=== PATIENT | female | born 1965 | race African-American/Black ===

== ENCOUNTER 2016-10-05 14:42 | Inpatient (IN) | payer OTHER ==
[~2016-10-05] VITALS: Ht 162.6 cm; Wt 78.0 kg
[2016-10-05] MEDS ORDERED: ONDANSETRON 4 MG INJ IV STA (15:00)
[2016-10-05] MEDS ORDERED: HYDROmorphONE 1 MG/ML SYG IV STA (15:00)
[2016-10-05] MEDS ORDERED: SOD CHLORIDE 0.9% 1,000 ML IV STA (15:00)
[2016-10-05 15:19] LABS: ADD SCAN DIFF NO
[2016-10-05 15:21] LABS: BASOPHILS % 0.4 % (0.0-2.0); EOSINOPHILS # 0.1 10^3/ul (0.0-0.5); EOSINOPHILS % 1.3 % (0.0-7.0); HEMATOCRIT 37.7 % (37.0-47.0); LYMPHOCYTES # 1.5 10^3/ul (0.8-2.9); LYMPHOCYTES % 32.2 % (15.0-51.0); MEAN CORPUSCULAR HEMOGLOBIN 31.8 pg (29.0-33.0); MEAN CORPUSCULAR HGB CONC 34.5 g/dl (32.0-37.0); MEAN CORPUSCULAR VOLUME 92.2 fl (82.0-101.0); MEAN PLATELET VOLUME 10.5 fl (7.4-10.4); MONOCYTE # 0.4 10^3/ul (0.3-0.9); NEUTROPHIL # 2.6 10^3/ul (1.6-7.5); NEUTROPHILS % 57.9 % (39.0-77.0); PLATELET COUNT 190 10^3/UL (140-415); RED BLOOD COUNT 4.09 10^6/ul (4.20-5.40); RED CELL DISTRIBUTION WIDTH 11.9 % (11.5-14.5); WHITE BLOOD COUNT 4.5 10^3/ul (4.8-10.8)
[2016-10-05 15:31] LABS: ADD UMIC YES; UR ASCORBIC ACID NEGATIVE (NEGATIVE); UR BACTERIA FEW /HPF (NONE SEEN); UR BILIRUBIN (Dip) NEGATIVE (NEGATIVE); UR BLOOD (Dip) 2+ mg/dL (NEGATIVE); UR CLARITY CLOUDY (CLEAR); UR COLOR STRAW (YELLOW); UR GLUCOSE (Dip) NEGATIVE (NEGATIVE); UR KETONES (Dip) TRACE mg/dL (NEGATIVE); UR LEUKOCYTE ESTERASE (Dip) TRACE Leu/ul (NEGATIVE); UR NITRITE (Dip) NEGATIVE (NEGATIVE); UR RBC 81 /HPF (0-5); UR SQUAMOUS EPITHELIAL CELL FEW /HPF (FEW); UR TOTAL PROTEIN (Dip) NEGATIVE (NEGATIVE); UR UROBILINOGEN (Dip) NEGATIVE (NEGATIVE); UR WBC CLUMPS FEW /HPF (NONE SEEN)
[2016-10-05 15:38] LABS: INR 0.97; PROTIME 12.9 Sec (12.2-14.2)
[2016-10-05 15:43] LABS: ALBUMIN 5.2 g/dl (3.3-4.9); ALBUMIN/GLOBULIN RATIO 1.44; BILIRUBIN,INDIRECT 0.7 mg/dl (0-1.1); BILIRUBIN,TOTAL 0.7 mg/dl (0.2-1.3); CALCIUM 9.8 mg/dl (8.4-10.2); CREATININE 0.98 mg/dl (0.44-1.00); POTASSIUM 3.6 mmol/L (3.5-5.1); TOTAL PROTEIN 8.8 g/dl (6.1-8.1)
[2016-10-05] MEDS ORDERED: CEFTRIAXONE 1 GM/50 ML (PMX) 50 ML IVPB ONE (16:00)
[2016-10-05] MEDS ORDERED: LORAZEPAM 2 MG INJ IV ONE (16:00)
--- NOTE | 2016-10-05 16:15 | RADRPT ---
PROCEDURE: US Abdomen Limited . CLINICAL INDICATION: Abdominal pain, possible hepatic cysts. TECHNIQUE: Multiple real-time images were acquired of the patient's right upper quadrant abdomen u tilizing a high resolution transducer. COMPARISON: June 21, 2015 FINDINGS: The liver measures 22.8 cm in length. Innumerable simple appearing cysts are identified throughout the liver. The largest distinctly visualized cyst measures up to 5.8 cm in the left liver. The gall bladder and common bile duct are not well visualized. The pancreas is not well visualized. Antegrade flow is seen in the portal vein. Right kidney measures 12.1 cm. Increased cortical echogenicity is identified in the right kidney. Multiple simple-appearing cysts measuring up to 2.6 cm are seen in the right kidney. No hydronephro sis, masses or stones are noted. IMPRESSION: Enlarged liver. Innumerable simple appearing cysts third seen throughout the liver. The largest distinctly visualiz e cyst measures up to 5.8 cm. Echogenic right kidney suggesting medical renal disease. Multiple simple-appearing cysts in the right kidney. Gallbladder, common bile duct and pancreas not well visualized. If characterization of these structu res is needed repeat exam or CT/MRI is recommended. RPTAT: AA .Alcides Burger MD, Date Time Electronically viewed and signed by .Alcides Burger MD, MD on 10/05/2016 16:15 .P/
--- NOTE | 2016-10-05 17:01 | ERA ---
ER Documentation Chief Complaint Date/Time DATE: 10/05/16 TIME: 16:59 Chief Complaint AP WITH VOMITING HPI 51-year-old woman complains of diffuse abdominal pain mostly localized to the right upper quadrant similar to previous episodes of polycystic kidney disease. She is status post laparoscopic resection of some of the cysts in her liver about a year ago. She states last time she had similar severe pain was about 1 year ago. The pain began this morning, she has had multiple episodes of nausea and vomiting, clear nonbloody nonbilious. She denies precipitating or alleviating factors for her abdominal pain, denies dysuria, no chest pain or shortness of breath, no diarrhea, no headache or blurry vision. ROS All systems reviewed and are negative except as per history of present illness. Medications Home Meds No Active Prescriptions or Reported Meds Allergies Allergies: Coded Allergies: Penicillins (Unverified Allergy, Intermediate, 10/05/16) PMhx/Soc History of chronic recurrent abdominal pain, hepatic and renal cysts, post laparoscopic surgical resection of said cysts History of Surgery: Yes (partial hysterectomy) Anesthesia Reaction: No Hx Neurological Disorder: No Hx Respiratory Disorders: No Hx Cardiac Disorders: No Hx Psychiatric Problems: No Hx Miscellaneous Medical Probl: Yes (polycystic KIDNEY / liver DISEASE) Hx Alcohol Use: No Hx Substance Use: No Hx Tobacco Use: No Smoking Status: Never smoker FmHx Family History: No diabetes Physical Exam Vitals Vital Signs Date Time Temp Pulse Resp B/P Pulse Ox O2 Delivery O2 Flow Rate FiO2 10/05/16 18:43 64 21 134/86 98 Nasal Cannula 2.0 10/05/16 17:56 98.3 61 20 133/90 100 Nasal Cannula 2.0 10/05/16 17:30 98.3 58 20 135/78 99 Nasal Cannula 2.0 10/05/16 16:58 66 16 144/82 98 Nasal Cannula 2.0 10/05/16 15:21 65 20 144/92 100 Room Air 10/05/16 14:45 99.3 84 20 150/78 99 Physical Exam GENERAL: Well-developed, well-nourished, moderate discomfort, dehydrated HEENT: Moist mucous membranes, pink conjunctiva, no cervical spine tenderness or step-off deformities, no goiter, no jaundice or icterus, extraocular movements intact without pain. No submandibular induration, and no pharyngeal erythema NEURO: Alert and oriented 3, cranial nerves II through XII intact bilaterally, pupils equal round reactive to light, no focal deficits or facial asymmetry, sensation intact distally Strength 5/5 in upper and lower extremities bilaterally CARDIAC: Regular rate and rhythm, no murmurs rubs or gallops LUNGS: Clear bilaterally no wheezing crackles or stridor ABDOMEN: Diffusely tender with voluntary guarding, making thorough abdominal examination difficult SKIN: Warm and dry to touch, no abrasions, contusions, or hematomas, no lacerations, no ecchymosis, no target lesions, and without ulcers EXTREMITIES: No clubbing cyanosis or edema, calves are bilaterally symmetrical, no Homans sign, no popliteal cord sign. Distal pulses equal and bilateral PSYCH: Agitated and anxious Result Diagram: 10/05/16 1512 10/05/16 1512 Results 24 hrs Laboratory Tests Test 10/05/16 14:58 10/05/16 15:12 Urine Color STRAW Urine Clarity CLOUDY Urine pH 7.0 Urine Specific [place] 1.010 Urine Ketones TRACEmg/dL Urine Nitrite NEGATIVEmg/dL Urine Bilirubin NEGATIVEmg/dL Urine Urobilinogen NEGATIVEmg/dL Urine Leukocyte Esterase TRACELeu/ul Urine Microscopic RBC 81/HPF Urine Microscopic WBC 21/HPF Urine Squamous Epithelial Cells FEW/HPF Urine Bacteria FEW/HPF Urine Hemoglobin 2+mg/dL Urine Glucose NEGATIVEmg/dL Urine Total Protein NEGATIVEmg/dl White Blood Count 4.510^3/ul Red Blood Count 4.0910^6/ul Hemoglobin 13.0g/dl Hematocrit 37.7% Mean Corpuscular Volume 92.2fl Mean Corpuscular Hemoglobin 31.8pg Mean Corpuscular Hemoglobin Concent 34.5g/dl Red Cell Distribution Width 11.9% Platelet Count 89214^3/UL Mean Platelet Volume 10.5fl Neutrophils % 57.9% Lymphocytes % 32.2% Monocytes % 8.0% Eosinophils % 1.3% Basophils % 0.4% Nucleated Red Blood Cells % 0.0/100WBC Neutrophils # 2.610^3/ul Lymphocytes # 1.510^3/ul Monocytes # 0.410^3/ul Eosinophils # 0.110^3/ul Basophils # 0.010^3/ul Nucleated Red Blood Cells # 0.010^3/ul Prothrombin Time 12.9Sec Prothrombin Time Ratio 1.0 INR International Normalized Ratio 0.97 Sodium Level 140mmol/L Potassium Level 3.6mmol/L Chloride Level 102mmol/L Carbon Dioxide Level 27mmol/L Anion Gap 15 Blood Urea Nitrogen 12mg/dl Creatinine 0.98mg/dl Glucose Level 121mg/dl Calcium Level 9.8mg/dl Total Bilirubin 0.7mg/dl Direct Bilirubin 0.00mg/dl Indirect Bilirubin 0.7mg/dl Aspartate Amino Transf (AST/SGOT) 27IU/L Alanine Aminotransferase (ALT/SGPT) 26IU/L Alkaline Phosphatase 73IU/L Total Protein 8.8g/dl Albumin 5.2g/dl Globulin 3.60g/dl Albumin/Globulin Ratio 1.44 Lipase 135U/L Serum HCG, Qualitative NEGATIVE Current Medications Medications (Trade) Dose Ordered Sig/Olena Route PRN Reason Start Time Stop Time Status Last Admin Dose Admin Sodium Chloride (NS) 1,000 ml @ 1,000 mls/hr Q1H STAT IV 10/05/16 15:00 10/05/16 15:59 DC 10/05/16 15:11 Hydromorphone HCl (Dilaudid) 1 mg ONCE STAT IV 10/05/16 15:00 10/05/16 15:01 DC 10/05/16 15:11 Ondansetron HCl 4 mg 4 mg ONCE STAT IV 10/05/16 15:00 10/05/16 15:01 DC 10/05/16 15:10 Ceftriaxone Sodium (Rocephin) 50 ml @ 100 mls/hr ONCE ONCE IVPB 10/05/16 16:00 10/05/16 16:29 DC 10/05/16 15:52 Lorazepam (Ativan) 1 mg ONCE ONCE IV 10/05/16 16:00 10/05/16 16:01 DC 10/05/16 16:06 Hydromorphone HCl 2 mg 2 mg ONCE STAT IV 10/05/16 17:18 10/05/16 17:19 DC 10/05/16 17:31 Dextrose/Sodium Chloride (D5-1/2ns) 1,000 ml @ 50 mls/hr Q20H IV 10/05/16 19:38 UNV IV Flush (NS 3 ml) 3 ml PER PROTOCOL IV 10/05/16 20:00 UNV Ondansetron HCl (Zofran Inj) 4 mg Q6H PRN IV NAUSEA AND/OR VOMITING 10/05/16 20:00 UNV Acetaminophen (Tylenol Tab) 650 mg Q6H PRN PO PAIN LEVEL 1-3 OR FEVER 10/05/16 20:00 UNV Acetaminophen (Tylenol Supp) 650 mg Q6H PRN [place] PAIN LEVEL 1-3 OR FEVER 10/05/16 20:00 UNV Acetaminophen/ Hydrocodone Bitart ([place] (5/325)) 1 tab Q6H PRN PO MODERATE PAIN LEVEL 4-6 10/05/16 20:00 UNV Morphine Sulfate (morphine) 2 mg Q4H PRN IV SEVERE PAIN LEVEL 7-10 10/05/16 20:00 UNV Docusate Sodium (Colace) 100 mg Q12H PRN PO CONSTIPATION 10/05/16 20:00 UNV Magnesium Hydroxide (Milk Of Mag) 30 ml DAILY PRN PO CONSTIPATION 10/05/16 20:00 UNV Bisacodyl (Dulcolax) 5 mg DAILY PRN PO CONSTIPATION 10/05/16 20:00 UNV Zolpidem Tartrate (Ambien) 5 mg QHS PRN PO SLEEP 10/05/16 20:00 UNV Pantoprazole (Protonix Iv) 40 mg DAILY IV 10/06/16 09:00 UNV Procedures/MDM IV line was established patient was placed on environmental monitoring specialist rhythm strip revealed a sinus rhythm at about 70 bpm with upright P and T waves. Patient was afebrile. I administered 1 L normal saline intravenously, Zofran 4 mg IV, and hydromorphone 1 mg IV. For continued anxiety and pain I administered lorazepam 1 mg IV, and another dose of hydromorphone 1 mg IV. Symptoms improved with medications. CBC revealed leukopenia, electrolytes were unremarkable, liver function tests normal, troponin negative. test was negative, urine analysis was concerning for early urinary tract infection. I treated the patient here with ceftriaxone 1 g IV. Ultrasound of the right upper quadrant revealed multiple large hepatic cysts. Please refer to radiologist dictation for full report. CT scan of the abdomen and pelvis was performed revealing multiple hepatic and renal cysts bilaterally as well as bowel ileus. No other acute inflammatory infectious pathology noted. Please refer to radiologist dictation for full report. Emergent consultation with her surgeon Dr. Callahan was obtained, he recommended admission for pain control and surgical consultation. Patient to be kept n.p.o. after midnight. Patient will be admitted to [facility] under Dr. Bridges for continued medical management and surgical consultation. Departure Diagnosis: Primary Impression: Intractable abdominal pain Additional Impressions: Hepatic cyst Dehydration UTI (urinary tract infection) Qualified Code: N30.00 - Acute cystitis without hematuria Leukopenia Qualified Code: D72.819 - Leukopenia, unspecified type Condition: MIRIAM Donovan MD Oct 05, 2016 17:01
[2016-10-05] MEDS ORDERED: HYDROmorphONE 2 MG/ML SYG IV STA (17:18)
[2016-10-05 17:56] VITALS: TEMP 98.3
--- NOTE | 2016-10-05 19:30 | RADRPT ---
PROCEDURE: CT abdomen and pelvis without IV contrast. CLINICAL INDICATION: Abdominal pain TECHNIQUE: CT scan of the abdomen and pelvis without contrast was performed on the [employer] volumetric [address] scanner. The patient was scanned without intravenous contrast. Coronal and sagittal refo rmatted images were obtained from the axial source images. The CTDI vol is 8.76 mGy and the DLP is 5 47.78 mGy-cm. COMPARISON: 08/19/2015 FINDINGS: CT abdomen: Mild dependent bibasilar atelectasis is seen. The remaining lung bases are clear. The heart size i s not enlarged and is without pericardial thickening or effusion. The liver is without intrahepatic biliary dilatation. The liver is again noted to be enlarged with i nnumerable number of hepatic cysts which have not changed significantly in size and number. The sple en is normal in size and homogeneous in density. The stomach is grossly unremarkable. The pancreas as visualized is normal. The gallbladder and biliary tree are unremarkable and there is no evidenc e for common bile duct dilatation. The adrenal glands are symmetric and normal. The kidneys are sy mmetrically unremarkable as well. Innumerable number of bilateral renal cysts are seen which of both simple and complex in appearance with a hemorrhagic cysts suggested in the left kidney. The renal cysts have not changed significantly in size and number compared to the prior examination. A small nonobstructing left renal calculi seen in the lower pole measuring 2 mm. No right renal calculus or obstructive uropathy or mass lesion is seen. The aorta is of normal in caliber. There is no retroperitoneal lymphadenopathy. The gilberto hepatis region is clear. Mildly distended and fluid-filled segments of small bowel are seen distally. The r emainder of the small and large bowel and mesentery, as visualized, are otherwise unremarkable. No i nflammatory changes in the periappendiceal region is seen. A small amount of free fluid is seen. CT pelvis: The pelvic organs are normal. The pelvic sidewalls and inguinal regions are clear. No pelvic mass, lymphadenopathy, or focal fluid collection is seen. No acute inflammation is seen. The urinary bl adder is within normal limits. The surrounding osseous structures are unremarkable. No osteolytic or osteoblastic lesion is detect ed. IMPRESSION: 1. Findings consistent with polycystic kidney disease again seen which has not changed significantl y. 2. Small amount of free fluid. 3. Mildly distended and fluid-filled distal small bowel which may represent an ileus. 4. 2 mm non-obstructing left renal calculus. RPTAT: HPNM Chapito Camacho, Physician Date Time Electronically viewed and signed by Chapito Camacho, Physician on 10/05/2016 19:30 /
--- NOTE | 2016-10-05 19:46 | QN ---
Documentation Comment [id number] MARIANNE MONTELONGO MD Oct 05, 2016 19:46
[2016-10-05] MEDS ORDERED: ZOLPIDEM 5 MG TAB PO PRN (20:00)
[2016-10-05] MEDS ORDERED: BISACODYL (EC) 5 MG TAB PO PRN (20:00)
[2016-10-05] MEDS ORDERED: DOCUSATE SODIUM 100 MG CAP PO PRN (20:00)
[2016-10-05] MEDS ORDERED: MAGNESIUM HYDROXIDE 30ML CUP PO PRN (20:00)
[2016-10-05] MEDS ORDERED: ACETAMINOPHEN 650 MG SUPP PR PRN (20:00)
[2016-10-05] MEDS ORDERED: ACETAMINOPHEN 325 MG TAB PO PRN (20:00)
[2016-10-05] MEDS ORDERED: HYDROCODONE/APAP (5/325) TAB PO PRN (20:00)
[2016-10-05] MEDS ORDERED: NACL 0.9% 3 ML SYG IV SCH (20:00)
[2016-10-05] MEDS ORDERED: morphine 2 MG INJ IV PRN (20:00)
[2016-10-05] MEDS: DEXTROSE 5%-0.45% NACL 1,000 ML IV SCH (20:22)
[2016-10-05] MEDS: CIPROFLOXACIN 400MG/D5W 200 ML IVPB SCH (21:29)
[2016-10-05] MEDS: ONDANSETRON 4 MG INJ IV PRN (21:36)
[2016-10-05 21:41] VITALS: BP 157/87; RESP 18
[2016-10-05 22:30] VITALS: Ht 162.6 cm; Wt 78.0 kg
[2016-10-06] MEDS: morphine 4 MG/ML VIAL IV PRN ×4 (00:32→22:46)
[2016-10-06] MEDS: ONDANSETRON 4 MG INJ IV PRN ×2 (03:19→09:30)
[2016-10-06] MEDS ORDERED: traMADol 50 MG TAB PO PRN (06:30)
[2016-10-06 06:56] LABS: ADD SCAN DIFF NO
--- NOTE | 2016-10-06 06:56 | HP ---
DATE OF ADMISSION: 10/05/2016 HISTORY OF PRESENT ILLNESS: Leydi Rios is a 51-year-old female with history of hepatic cyst, presented with abdominal pain, has history of hepatic cyst deroofing in the past, presented with abdominal pain, nausea. Blood pressure 144/82, temperature 99.3 and patient is being admitted for further management. Laboratory data done shows total protein 8.8, albumin 5.2. The patient's WBC 4.5. Ultrasound of the abdomen shows findings consistent with polycystic kidney disease again seen which has not yet changed, small amount of free fluid, mildly distended and fluid-filled distal small bowel represents ileus, 2 mm nonobstructing left renal calculus. The patient's _ abdomen shows interval simple-appearing cyst the liver, echogenic right kidney consistent with medical renal disease. Gallbladder, common bile duct and pancreas not well visualized. PAST MEDICAL HISTORY: Polycystic kidney disease and liver disease. ALLERGIES: PENICILLIN. SOCIAL HISTORY: Negative. FAMILY HISTORY: Negative. MEDICATION HISTORY: At home, the patient does not know the name of the medicine. REVIEW OF SYSTEMS: HEENT: Unremarkable. RESPIRATORY: Unremarkable. CARDIOVASCULAR: No chest pain, palpitation. ABDOMEN: As mentioned above. EXTREMITIES: Unremarkable. CENTRAL NERVOUS SYSTEM: Unremarkable. GENITOURINARY: Unremarkable. MUSCULOSKELETAL: Unremarkable. PHYSICAL EXAMINATION: GENERAL: The patient is awake, alert, in pain. VITAL SIGNS: Stable. HEENT: Head is atraumatic, normocephalic. Pupils equal, reactive to light. NECK: Supple. There is no JVD. LUNGS: Clear. CARDIOVASCULAR: S1, S2 are normal. ABDOMEN: Distended. Bowel sounds positive. Tenderness in the right lower quadrant noted. EXTREMITIES: No cyanosis, clubbing or edema. CENTRAL NERVOUS SYSTEM: The patient is awake, alert with no focal deficit. LABORATORY DATA: As mentioned above. IMPRESSION: 1. The patient has urinary tract infection. 2. Polycystic kidney and liver disease. PLAN: Give this patient IV fluid. Dr. Callahan to see. Antibiotic, pain medication, PPI. Orders were done. Dictated By: MARIANNE MONTELONGO MD BS/NTS Conf#: [id number] DID#: [id number] [facility]
[2016-10-06 07:06] LABS: BASOPHILS % 0.1 % (0.0-2.0); HEMATOCRIT 39.7 % (37.0-47.0); HEMOGLOBIN 13.1 g/dl (12.0-16.0); LYMPHOCYTES # 0.6 10^3/ul (0.8-2.9); LYMPHOCYTES % 7.4 % (15.0-51.0); MEAN CORPUSCULAR HEMOGLOBIN 30.7 pg (29.0-33.0); MEAN PLATELET VOLUME 11.5 fl (7.4-10.4); MONOCYTE # 0.4 10^3/ul (0.3-0.9); MONOCYTES % 4.8 % (0.0-11.0); NEUTROPHIL # 7.4 10^3/ul (1.6-7.5); NEUTROPHILS % 87.2 % (39.0-77.0); PLATELET COUNT 214 10^3/UL (140-415); RED BLOOD COUNT 4.27 10^6/ul (4.20-5.40); RED CELL DISTRIBUTION WIDTH 11.9 % (11.5-14.5); WHITE BLOOD COUNT 8.4 10^3/ul (4.8-10.8)
[2016-10-06 07:50] LABS: ALBUMIN 4.7 g/dl (3.3-4.9); ALBUMIN/GLOBULIN RATIO 1.46; BILIRUBIN,INDIRECT 0.6 mg/dl (0-1.1); BILIRUBIN,TOTAL 0.6 mg/dl (0.2-1.3); CALCIUM 8.8 mg/dl (8.4-10.2); CREATININE 0.73 mg/dl (0.44-1.00); POTASSIUM 3.7 mmol/L (3.5-5.1); TOTAL PROTEIN 7.9 g/dl (6.1-8.1)
[2016-10-06 08:00] VITALS: BP 155/64; RESP 20
[2016-10-06] MEDS: PANTOPRAZOLE 40 MG INJ IV SCH (08:23)
[2016-10-06] MEDS: CIPROFLOXACIN 400MG/D5W 200 ML IVPB SCH ×2 (08:24→19:46)
[2016-10-06] MEDS ORDERED: PROMETHAZINE 25 MG SUPP PR PRN (10:00)
[2016-10-06] MEDS ORDERED: METOCLOPRAMIDE 10 MG INJ IV PRN (10:00)
--- NOTE | 2016-10-06 10:01 | PN ---
Date/Time of Note Date/Time of Note DATE: 10/06/16 TIME: 09:59 Assessment/Plan VTE Prophylaxis VTE Prophylaxis Intervention: ambulation Lines/Catheters IV Catheter Type (from Nrs): Peripheral IV Assessment/Plan Chief Complaint/Hosp Course 1. The patient has urinary tract infection. 2. Polycystic kidney and liver disease. Problems: Assessment/Plan 1. Continue IV fluids 2. More antiemetic meds Subjective 24 Hr Interval Summary Constitutional: poor po, requiring IVF Cardiovascular: no complaints Gastrointestinal: decreased appetite, pain Exam/Review of Systems Vital Signs Vitals Vital Signs Date Time Temp Pulse Resp B/P Pulse Ox O2 Delivery O2 Flow Rate FiO2 10/05/16 21:41 97.5 53 18 157/87 96 10/05/16 21:01 Nasal Cannula 2.0 Intake and Output 10/05/16 10/05/16 10/06/16 15:00 23:00 07:00 Intake Total 200 ml 445 ml Output Total 100 ml Balance 200 ml 345 ml Exam Constitutional: alert, oriented Neck: supple Respiratory: clear to auscultation Cardiovascular: regular rate and rhythm Gastrointestinal: tender Results Result Diagram: 10/06/16 0537 10/06/16 0537 Results 24 hrs Laboratory Tests Test 10/05/16 14:58 10/05/16 15:12 10/06/16 05:37 Urine Color STRAW Urine Clarity CLOUDY A Urine pH 7.0 Urine Specific [place] 1.010 Urine Ketones TRACE A Urine Nitrite NEGATIVE Urine Bilirubin NEGATIVE Urine Urobilinogen NEGATIVE Urine Leukocyte Esterase TRACE A Urine Microscopic RBC 81 H Urine Microscopic WBC 21 H Urine Squamous Epithelial Cells FEW Urine Bacteria FEW A Urine Hemoglobin 2+ H Urine Glucose NEGATIVE Urine Total Protein NEGATIVE White Blood Count 4.5 L 8.4 # Red Blood Count 4.09 L 4.27 Hemoglobin 13.0 13.1 Hematocrit 37.7 39.7 Mean Corpuscular Volume 92.2 93.0 Mean Corpuscular Hemoglobin 31.8 30.7 Mean Corpuscular Hemoglobin Concent 34.5 33.0 Red Cell Distribution Width 11.9 11.9 Platelet Count 190 214 Mean Platelet Volume 10.5 H 11.5 H Neutrophils % 57.9 87.2 H Lymphocytes % 32.2 7.4 L Monocytes % 8.0 4.8 Eosinophils % 1.3 0.0 Basophils % 0.4 0.1 Nucleated Red Blood Cells % 0.0 0.0 Neutrophils # 2.6 7.4 Lymphocytes # 1.5 0.6 L Monocytes # 0.4 0.4 Eosinophils # 0.1 0.0 Basophils # 0.0 0.0 Nucleated Red Blood Cells # 0.0 0.0 Prothrombin Time 12.9 Prothrombin Time Ratio 1.0 INR International Normalized Ratio 0.97 Sodium Level 140 135 Potassium Level 3.6 3.7 Chloride Level 102 101 Carbon Dioxide Level 27 23 Anion Gap 15 15 Blood Urea Nitrogen 12 12 Creatinine 0.98 0.73 Glucose Level 121 163 Calcium Level 9.8 8.8 Total Bilirubin 0.7 0.6 Direct Bilirubin 0.00 0.00 Indirect Bilirubin 0.7 0.6 Aspartate Amino Transf (AST/SGOT) 27 28 Alanine Aminotransferase (ALT/SGPT) 26 24 Alkaline Phosphatase 73 53 Total Protein 8.8 H 7.9 Albumin 5.2 H 4.7 Globulin 3.60 H 3.20 Albumin/Globulin Ratio 1.44 1.46 Lipase 135 Serum HCG, Qualitative NEGATIVE Medications Medications Current Medications Dextrose/Sodium Chloride (D5-1/2ns) 1,000 ml @ 50 mls/hr Q20H IV Last administered on 10/05/16 20:22; Admin Dose 50 MLS/HR; Start 10/05/16 at 19:38 Ondansetron HCl (Zofran Inj) 4 mg Q6H PRN IV NAUSEA AND/OR VOMITING Last administered on 10/06/16 09:30; Admin Dose 4 MG; Start 10/05/16 at 20:00 Acetaminophen (Tylenol Tab) 650 mg Q6H PRN PO PAIN LEVEL 1-3 OR FEVER; Start at 20:00 Acetaminophen (Tylenol Supp) 650 mg Q6H PRN [place] PAIN LEVEL 1-3 OR FEVER; Start 10/05/16 at 20:00 Acetaminophen/ Hydrocodone Bitart ([place] (5/325)) 1 tab Q6H PRN PO MODERATE PAIN LEVEL 4-6; Start 10/05/16 at 20:00 Docusate Sodium (Colace) 100 mg Q12H PRN PO CONSTIPATION; Start 10/05/16 at 20: 00 Magnesium Hydroxide (Milk Of Mag) 30 ml DAILY PRN PO CONSTIPATION; Start at 20:00 Bisacodyl (Dulcolax) 5 mg DAILY PRN PO CONSTIPATION; Start 10/05/16 at 20:00 Zolpidem Tartrate (Ambien) 5 mg QHS PRN PO SLEEP; Start 10/05/16 at 20:00 Pantoprazole 40 mg 40 mg DAILY IV Last administered on 10/06/16 08:23; Admin Dose 40 MG; Start 10/06/16 at 09:00 Ciprofloxacin/ Dextrose (Cipro Ivpb) 200 ml @ 200 mls/hr BID IVPB Last administered on 10/06/16 08:24; Admin Dose 200 MLS/HR; Start 10/05/16 at 21:00 Morphine Sulfate (morphine) 3 mg Q3 PRN IV SEVERE PAIN LEVEL 7-10 Last administered on 10/06/16 03:21; Admin Dose 3 MG; Start 10/06/16 at 00:00 Tramadol HCl (Ultram) 50 mg Q6H PRN PO PAIN Last administered on 10/06/16 06: 29; Admin Dose 50 MG; Start 10/06/16 at 06:30 MARCO DEL CID Oct 06, 2016 10:01
[2016-10-06 11:03] VITALS: BP 138/60; PULSE 70
[2016-10-06] MEDS: DEXTROSE 5%-0.45% NACL 1,000 ML IV SCH ×2 (15:38→18:41)
--- NOTE | 2016-10-06 17:48 | CONS ---
Date/Time of Note Date/Time of Note DATE: 10/06/16 TIME: 17:32 Assessment/Plan Assessment/Plan Additional Assessment/Plan [facility] INITIAL INPATIENT CONSULTATION NOTE DATE: 10/06/2016 PLACE OF SERVICE: [facility] 2nd Floor [facility] ASSESSMENT AND PLAN: A very pleasant 51-year-old lady well known to me since June 2014 for management of polycystic liver and kidney disease and s/p laparoscopic cyst unroofing 09/24/15, here with abdominal pain with nausea and vomiting and possible UTI vs. viral gastroenteritis vs. partial small bowel obstruction (has h/o pelvic surgery with partial hysterectomy). No indication for acute surgical intervention. Liver appears to be similar in size to pre-op size and I do not believe is the cause of the patient's symptoms. I explained this to patient (no family present during my discussions with the patient) and answered all her questions. I also discussed with Dr. Bridges. With above assessment, I recommended the followin. Keep inhouse 2. Agree with treatment for UTI 3. IV fluids 4. Symptom control 5. Strict I's and O's 6. Bowel regimen from below only 7. Labs in am Thank you again for allowing us to participate in the care of this very pleasant lady and her wonderful family. If there are any questions, please feel free to call me at [phone]. Updated Clinical Summary: The patient is a very pleasant 49-year-old young lady with symptomatic polycystic kidney and liver disease with abdominal pain and decreased oral intake. Status post laparoscopic cyst unroofing (multiple) 09/24/2015 as an outpatient. Comorbidities: 1. BMI 29.5 2. Polycystic kidney and liver disease discovered in the summer of 2013 3. S/p laparoscopic cyst unroofing (multiple) 09/24/[address] [facility] through [facility] 4. S/p partial hysterectomy in 2010 HISTORY OF PRESENT ILLNESS: The patient is a very pleasant 51-year-old lady well known to me since June 2014, admitted through ED at [facility] 10/05/16 with abdominal pain of a few days duration associated with non-bloody vomiting and nausea. Cannot keep liquids down. No fevers or chills. No blood in stool or urine. W/u showed normal labs and unremarkable CT other than polycystic liver and kidney disease which is unchanged since last year, and slight prominence of a few loops of bowel in the pelvis. No other major complaints. ALLERGIES: PCN HOME MEDICATIONS: See EHR SOCIAL HISTORY: The patient was born in [place], [place]. She is and has 2 children. 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 She does not report any smoking. Has social type drinking and no intravenous drug use. FAMILY HISTORY: There is no family history of polycystic liver or kidney disease that is known. There is also no major medical or malignant processes in the family that is noted by the patient or noted in the chart. REVIEW OF SYSTEMS: Other than the above-mentioned, there are no other pertinent positives or pertinent negatives in a complete 14-point review of systems. PHYSICAL EXAMINATION GENERAL: The patient appears to be a very pleasant -[place] lady of non - descent, appearing stated age, quite fit and not cachectic, laying in bed comfortably and in no acute distress. VITAL SIGNS: BMI 29.5. AVSS. HEENT: Her head is normocephalic and atraumatic. Her extraocular muscles and hearing are grossly intact bilaterally and symmetrically. Her sclerae are nonicteric. Her oral cavity is clear and her oral mucosa appeared to be pink and moist. She has good dentition. NECK: Supple. There is no lymphadenopathy or JVD. There is no submental, submandibular or supraclavicular lymphadenopathy. CHEST: Her chest rises symmetrically with each breath and she is breathing comfortably. There are no audible wheezes, rales or rhonchi on the gross exam. Her pulse is regular and palpable on the left wrist. Carotid pulses are palpable bilaterally and symmetrically in her neck. Capillary refill is normal. EXTREMITIES: Her lower extremities contain no pitting edema bilaterally and symmetrically. ABDOMEN: Soft, nondistended and nontender. Incisions c/d/i w/o any evidence for e/e/d/h. There are no peritoneal signs or guarding. SKIN: Appears to be pink and feels warm to touch. NEUROLOGIC: She is awake, alert, and follows commands appropriately. LABORATORY DATA: See EHR IMAGING: CT abd/pelvis done 10/05/16 with comparison to 08/19/15 IMPRESSION: 1. Findings consistent with polycystic kidney disease again seen which has not changed significantly. 2. Small amount of free fluid. 3. Mildly distended and fluid-filled distal small bowel which may represent an ileus. 4. 2 mm non-obstructing left renal calculus. Previously, the patient had an ultrasound of the right upper quadrant on 2013 that showed changes consistent with polycystic kidneys as well as enumerable cysts in the liver. Gallbladder was not visualized. A CT scan done on the same day showed extensive and numerous hepatic cysts throughout the liver resulting in moderate to severe hepatomegaly. There were no focal hepatic masses or intrahepatic biliary dilatation. The spleen was normal in size and homogeneous. The stomach was partially collapsed and is grossly unremarkable. Note that I reviewed both of all available pertinent images in person and I agree in general with their overall findings. As demonstrated previously, most of the disease is still spread fairly uniformly throughout the liver, although in the segments 7 and 8 of the liver there seems to be more collection of larger cysts than the rest of the liver. Consultation Date/Type/Reason Admit Date/Time Oct 05, 2016 at 17:18 Constitutional: poor po, requiring IVF Cardiovascular: no complaints Gastrointestinal: decreased appetite, pain Social History Smoking Status: Never smoker Exam/Review of Systems Vital Signs Vitals Vital Signs Date Time Temp Pulse Resp B/P Pulse Ox O2 Delivery O2 Flow Rate FiO2 10/06/16 11:03 70 138/60 10/06/16 08:00 98.6 20 94 10/05/16 21:01 Nasal Cannula 2.0 Intake and Output 10/05/16 10/05/16 10/06/16 15:00 23:00 07:00 Intake Total 200 ml 445 ml Output Total 100 ml Balance 200 ml 345 ml Results Result Diagram: 10/06/16 0537 10/06/16 0537 Results 24 hrs Laboratory Tests Test 10/06/16 05:37 White Blood Count 8.4 # Red Blood Count 4.27 Hemoglobin 13.1 Hematocrit 39.7 Mean Corpuscular Volume 93.0 Mean Corpuscular Hemoglobin 30.7 Mean Corpuscular Hemoglobin Concent 33.0 Red Cell Distribution Width 11.9 Platelet Count 214 Mean Platelet Volume 11.5 H Neutrophils % 87.2 H Lymphocytes % 7.4 L Monocytes % 4.8 Eosinophils % 0.0 Basophils % 0.1 Nucleated Red Blood Cells % 0.0 Neutrophils # 7.4 Lymphocytes # 0.6 L Monocytes # 0.4 Eosinophils # 0.0 Basophils # 0.0 Nucleated Red Blood Cells # 0.0 Sodium Level 135 Potassium Level 3.7 Chloride Level 101 Carbon Dioxide Level 23 Anion Gap 15 Blood Urea Nitrogen 12 Creatinine 0.73 Glucose Level 163 Calcium Level 8.8 Total Bilirubin 0.6 Direct Bilirubin 0.00 Indirect Bilirubin 0.6 Aspartate Amino Transf (AST/SGOT) 28 Alanine Aminotransferase (ALT/SGPT) 24 Alkaline Phosphatase 53 Total Protein 7.9 Albumin 4.7 Globulin 3.20 Albumin/Globulin Ratio 1.46 Medications Medications Current Medications Dextrose/Sodium Chloride (D5-1/2ns) 1,000 ml @ 50 mls/hr Q20H IV Last administered on 10/05/16 20:22; Admin Dose 50 MLS/HR; Start 10/05/16 at 19:38 Ondansetron HCl (Zofran Inj) 4 mg Q6H PRN IV NAUSEA AND/OR VOMITING Last administered on 10/06/16 09:30; Admin Dose 4 MG; Start 10/05/16 at 20:00 Acetaminophen (Tylenol Tab) 650 mg Q6H PRN PO PAIN LEVEL 1-3 OR FEVER; Start at 20:00 Acetaminophen (Tylenol Supp) 650 mg Q6H PRN [place] PAIN LEVEL 1-3 OR FEVER; Start 10/05/16 at 20:00 Acetaminophen/ Hydrocodone Bitart ([place] (5/325)) 1 tab Q6H PRN PO MODERATE PAIN LEVEL 4-6; Start 10/05/16 at 20:00 Docusate Sodium (Colace) 100 mg Q12H PRN PO CONSTIPATION; Start 10/05/16 at 20: 00 Magnesium Hydroxide (Milk Of Mag) 30 ml DAILY PRN PO CONSTIPATION; Start at 20:00 Bisacodyl (Dulcolax) 5 mg DAILY PRN PO CONSTIPATION; Start 10/05/16 at 20:00 Zolpidem Tartrate (Ambien) 5 mg QHS PRN PO SLEEP; Start 10/05/16 at 20:00 Pantoprazole 40 mg 40 mg DAILY IV Last administered on 10/06/16 08:23; Admin Dose 40 MG; Start 10/06/16 at 09:00 Ciprofloxacin/ Dextrose (Cipro Ivpb) 200 ml @ 200 mls/hr BID IVPB Last administered on 10/06/16 08:24; Admin Dose 200 MLS/HR; Start 10/05/16 at 21:00 Morphine Sulfate (morphine) 3 mg Q3 PRN IV SEVERE PAIN LEVEL 7-10 Last administered on 10/06/16 09:55; Admin Dose 3 MG; Start 10/06/16 at 00:00 Tramadol HCl (Ultram) 50 mg Q6H PRN PO PAIN Last administered on 10/06/16 06: 29; Admin Dose 50 MG; Start 10/06/16 at 06:30 Metoclopramide HCl (Reglan) 5 mg Q6H PRN IV NAUSEA; Start 10/06/16 at 10:00 Promethazine HCl (Phenadoz) 25 mg Q6H PRN [place] NAUSEA; Start 10/06/16 at 10:00 HEMAL EMERY M.D. Oct 06, 2016 17:46
[2016-10-06 20:00] VITALS: BP 140/84; RESP 18
[2016-10-07 06:07] LABS: ADD SCAN DIFF NO
[2016-10-07 06:10] LABS: BASOPHILS % 0.1 % (0.0-2.0); HEMATOCRIT 39.6 % (37.0-47.0); HEMOGLOBIN 13.5 g/dl (12.0-16.0); LYMPHOCYTES # 0.7 10^3/ul (0.8-2.9); LYMPHOCYTES % 4.3 % (15.0-51.0); MEAN CORPUSCULAR HEMOGLOBIN 31.3 pg (29.0-33.0); MEAN CORPUSCULAR HGB CONC 34.1 g/dl (32.0-37.0); MEAN CORPUSCULAR VOLUME 91.9 fl (82.0-101.0); MEAN PLATELET VOLUME 10.9 fl (7.4-10.4); MONOCYTE # 1.5 10^3/ul (0.3-0.9); MONOCYTES % 9.3 % (0.0-11.0); NEUTROPHIL # 13.4 10^3/ul (1.6-7.5); NEUTROPHILS % 85.9 % (39.0-77.0); PLATELET COUNT 214 10^3/UL (140-415); RED BLOOD COUNT 4.31 10^6/ul (4.20-5.40); RED CELL DISTRIBUTION WIDTH 11.9 % (11.5-14.5); WHITE BLOOD COUNT 15.6 10^3/ul (4.8-10.8)
[2016-10-07 06:55] LABS: CALCIUM 8.8 mg/dl (8.4-10.2); CREATININE 0.95 mg/dl (0.44-1.00); POTASSIUM 4.3 mmol/L (3.5-5.1)
[2016-10-07 08:00] VITALS: BP 131/86; PULSE 66; RESP 16
[2016-10-07] MEDS: PANTOPRAZOLE 40 MG INJ IV SCH (09:49)
[2016-10-07] MEDS: CIPROFLOXACIN 400MG/D5W 200 ML IVPB SCH (09:50)
[2016-10-07] MEDS: DEXTROSE 5%-0.45% NACL 1,000 ML IV SCH ×2 (11:38→18:25)
--- NOTE | 2016-10-07 12:55 | PN ---
Date/Time of Note Date/Time of Note DATE: 10/07/16 TIME: 12:53 Assessment/Plan VTE Prophylaxis VTE Prophylaxis Intervention: ambulation Lines/Catheters IV C[facility]ter Type (from [facility]): Peripheral IV Urinary Cath still in place: No Assessment/Plan Chief Complaint/Hosp Course 1 The patient has urinary tract infection wit SIRS 2. Polycystic kidney and liver disease. Problems: Assessment/Plan 1.Cont a/b 2. Dr Conteh for ID Subjective 24 Hr Interval Summary Eyes: no complaints Cardiovascular: no complaints Gastrointestinal: pain Genitourinary: flank pain Exam/Review of Systems Vital Signs Vitals Vital Signs Date Time Temp Pulse Resp B/P Pulse Ox O2 Delivery O2 Flow Rate FiO2 10/06/16 20:00 98.6 64 18 140/84 98 10/05/16 21:01 Nasal Cannula 2.0 Intake and Output 10/06/16 10/06/16 10/07/16 15:00 23:00 07:00 Intake Total 850 ml 525 ml 600 ml Output Total 100 ml Balance 750 ml 525 ml 600 ml Exam Constitutional: alert, oriented Head: normocephalic Neck: supple Respiratory: clear to auscultation Cardiovascular: regular rate and rhythm Gastrointestinal: soft Genitourinary - Female: CVA tenderness Results Result Diagram: 10/07/16 0539 10/07/16 0539 Results 24 hrs Laboratory Tests Test 10/07/16 05:39 White Blood Count 15.6 #H Red Blood Count 4.31 Hemoglobin 13.5 Hematocrit 39.6 Mean Corpuscular Volume 91.9 Mean Corpuscular Hemoglobin 31.3 Mean Corpuscular Hemoglobin Concent 34.1 Red Cell Distribution Width 11.9 Platelet Count 214 Mean Platelet Volume 10.9 H Neutrophils % 85.9 H Lymphocytes % 4.3 L Monocytes % 9.3 Eosinophils % 0.0 Basophils % 0.1 Nucleated Red Blood Cells % 0.0 Neutrophils # 13.4 H Lymphocytes # 0.7 L Monocytes # 1.5 H Eosinophils # 0.0 Basophils # 0.0 Nucleated Red Blood Cells # 0.0 Sodium Level 132 L Potassium Level 4.3 Chloride Level 97 Carbon Dioxide Level 27 Anion Gap 12 Blood Urea Nitrogen 19 Creatinine 0.95 Glucose Level 138 Calcium Level 8.8 Medications Medications Current Medications Dextrose/Sodium Chloride (D5-1/2ns) 1,000 ml @ 50 mls/hr Q20H IV Last administered on 10/06/16 18:41; Admin Dose 50 MLS/HR; Start 10/05/16 at 19:38 Ondansetron HCl (Zofran Inj) 4 mg Q6H PRN IV NAUSEA AND/OR VOMITING Last administered on 10/06/16 09:30; Admin Dose 4 MG; Start 10/05/16 at 20:00 Acetaminophen (Tylenol Tab) 650 mg Q6H PRN PO PAIN LEVEL 1-3 OR FEVER; Start at 20:00 Acetaminophen (Tylenol Supp) 650 mg Q6H PRN [place] PAIN LEVEL 1-3 OR FEVER; Start 10/05/16 at 20:00 Acetaminophen/ Hydrocodone Bitart ([place] (5/325)) 1 tab Q6H PRN PO MODERATE PAIN LEVEL 4-6; Start 10/05/16 at 20:00 Docusate Sodium (Colace) 100 mg Q12H PRN PO CONSTIPATION; Start 10/05/16 at 20: 00 Magnesium Hydroxide (Milk Of Mag) 30 ml DAILY PRN PO CONSTIPATION; Start at 20:00 Bisacodyl (Dulcolax) 5 mg DAILY PRN PO CONSTIPATION; Start 10/05/16 at 20:00 Zolpidem Tartrate (Ambien) 5 mg QHS PRN PO SLEEP; Start 10/05/16 at 20:00 Pantoprazole 40 mg 40 mg DAILY IV Last administered on 10/07/16 09:49; Admin Dose 40 MG; Start 10/06/16 at 09:00 Ciprofloxacin/ Dextrose (Cipro Ivpb) 200 ml @ 200 mls/hr BID IVPB Last administered on 10/07/16 09:50; Admin Dose 200 MLS/HR; Start 10/05/16 at 21:00 Morphine Sulfate (morphine) 3 mg Q3 PRN IV SEVERE PAIN LEVEL 7-10 Last administered on 10/06/16 22:46; Admin Dose 3 MG; Start 10/06/16 at 00:00 Tramadol HCl (Ultram) 50 mg Q6H PRN PO PAIN Last administered on 10/06/16 06: 29; Admin Dose 50 MG; Start 10/06/16 at 06:30 Metoclopramide HCl (Reglan) 5 mg Q6H PRN IV NAUSEA; Start 10/06/16 at 10:00 Promethazine HCl (Phenadoz) 25 mg Q6H PRN MD NAUSEA; Start 10/06/16 at 10:00 MARCO DEL CID Oct 07, 2016 12:55
--- NOTE | 2016-10-07 15:15 | PN ---
Date/Time of Note Date/Time of Note DATE: 10/07/16 TIME: 15:11 Assessment/Plan Lines/Catheters IV Catheter Type (from Nrs): Peripheral IV Scott in Place (from Nrs): No Assessment/Plan Assessment/Plan [facility] Progress Note Date of Service: 10/07/16 Today's Impression & Plan: Overall stable with ongoing abdominal pain associated with nausea and vomiting and now with increased WBC. Etiology unclear, but possibilities include UTI vs. viral gastroenteritis vs. partial small bowel obstruction (has h/o pelvic surgery with partial hysterectomy). No indication for acute surgical intervention. With above assessment, I recommended the followin. Keep inhouse 2. Cont treatment for UTI 3. IV fluids 4. Symptom control 5. Strict I's and O's 6. Bowel regimen from below only 7. NPO except sips of water and ice chips 8. KUB 9. Labs in am Thank you again for allowing us to participate in the care of this very pleasant lady and her wonderful family. If there are any questions, please feel free to call me at [phone]. Updated Clinical Summary: The patient is a very pleasant 49-year-old young lady with symptomatic polycystic kidney and liver disease with abdominal pain and decreased oral intake. Status post laparoscopic cyst unroofing (multiple) 09/24/2015 as an outpatient. Comorbidities: 1. BMI 29.5 2. Polycystic kidney and liver disease discovered in the summer of 2013 3. S/p laparoscopic cyst unroofing (multiple) 09/24/2015 as an outpatient at [facility] through [facility] 4. S/p partial hysterectomy in 2010 Subjective: No major events or complaints; still with abd pain and under semi-adequate control with medications; + n/v; - d; no sob or cp; - flatus; - BM; minimal activity Objective: Vitals: See below Exam: GENERAL: On exam, the patient was laying in bed and appeared to be comfortable and in no acute distress. ABDOMEN: Soft, mild to moderately tender and nondistended. There are no peritoneal signs or guarding. SKIN: Skin appears to be pink and feels warm to touch. NEUROLOGIC: Patient is awake, alert, and follows commands appropriately. Exam/Review of Systems Vital Signs Vitals Vital Signs Date Time Temp Pulse Resp B/P Pulse Ox O2 Delivery O2 Flow Rate FiO2 10/07/16 08:00 98.9 66 16 131/86 97 Room Air 10/05/16 21:01 2.0 Intake and Output 10/06/16 10/06/16 10/07/16 15:00 23:00 07:00 Intake Total 850 ml 525 ml 600 ml Output Total 100 ml Balance 750 ml 525 ml 600 ml Results Result Diagram: 10/07/16 0539 10/07/16 0539 HEMAL EMERY M.D. Oct 07, 2016 15:15
--- NOTE | 2016-10-07 17:00 | CONS ---
DATE OF ADMISSION: 10/05/2016 DATE OF CONSULTATION: 10/07/2016 TYPE OF CONSULTATION: Infectious disease. REASON FOR CONSULTATION: Antibiotic management. HISTORY OF PRESENT ILLNESS: Leydi Rios is a 51-year-old female with a history of polycystic k idney disease who comes in now with abdominal pain and is being seen for antibiotic management. Pas t problems include: 1. Polycystic kidney disease and liver disease. 2. History of hepatic cysts. The patient presented with abdominal pain and a history of hepatic cyst deroofing in the past. She had nausea and an ultrasound of the abdomen shows findings consistent with polycystic kidney disease which has not changed. She has a small amount of free fluid, mildly distended and fluid-filled dis maya small bowel representing an ileus, a 2 mm nonobstructing left renal calculus. Abdomen shows int erval simple-appearing cysts of the liver. On admission, her white count was 4.5, H and H of 13 and 37.7, platelet count 190,000. Today, her white count is 15.6. BUN and creatinine are 12/0.98 and 19/0.95. Urine is negative for nitrite, trace leukocyte esterase, white cells 21, which is elevated . Abdominal ultrasound, innumerable simple cysts seen throughout the liver and as previously noted. A CT scan of the abdomen and pelvis does not show any difference, mildly distended and fluid-fille d distal small bowel, which may represent an ileus. The patient was seen by Dr. Newton Callahan on , who noted that her BMI was 29, polycystic kidney disease and liver disease discovered in 05/2013, status post laparoscopic cyst unroofing, multiple, as an outpatient at [facility]. She also is status post partial hysterectomy in 2010. The patient was begun on Cipro on 10/05/2016 . There is no evidence of any urine cultures that were done. The patient received 1 dose of ceftri axone. She was seen again by Dr. Callahan today. She was stable. Abdominal pain associated with crys sea and vomiting now with increased WBC, possibilities include UTI versus viral gastroenteritis vers us partial small-bowel obstruction. No indications for acute surgical intervention. PAST MEDICAL HISTORY: Operations as outlined. FAMILY HISTORY: Noncontributory. SOCIAL HISTORY: She does not smoke, drink or abuse drugs. ALLERGIES: TO PENICILLIN, NOT TO SULFA OR FOODS. MEDICATIONS: Per chart. REVIEW OF SYSTEMS: As per HPI. PHYSICAL EXAMINATION: GENERAL: The patient is a well-developed, well-nourished female who is alert, responsive, in no acu te distress. VITAL SIGNS: Stable. She is afebrile. SKIN: Without generalized rash. HEENT: Within normal limits. NECK: Supple. LYMPH NODES: None palpable. CHEST: Decreased breath sounds at the bases. ABDOMEN: Soft with some mild tenderness, nondistended, without organosplenomegaly or masses. EXTREMITIES: Without cyanosis, clubbing, or edema. RECTAL AND GENITAL: Deferred. NEUROLOGIC: No focal neurological abnormalities. IMPRESSION AND PLAN: Leydi Rios is a pleasant 51-year-old female who comes in now with abdomi nal pain and has leukocytosis. We are going to get 2 sets of blood cultures, a urine culture. Disc ontinue the Cipro and start her on ertapenem. I will dictate my findings to Dr. Bridges and Dr. Robles cotter. Dictated By: EDEN ROACH MD, JD/VENKAT Conf#: [id number] DID#: [id number]
--- NOTE | 2016-10-07 17:28 | RADRPT ---
PROCEDURE: XR Abdomen. CLINICAL INDICATION: Abdominal pain TECHNIQUE: Supine and upright views of the abdomen were obtained. COMPARISON: None. FINDINGS: The bowel gas pattern is normal. There is no evidence of obstruction. No free intraperitoneal air i s seen. There are no abnormal calcifications overlying the urinary tracts. The osseous structures a re unremarkable. IMPRESSION: Nonobstructive bowel gas pattern. RPTAT: HPNM Physician Vineet Date Time Electronically viewed and signed by Chapito Camacho Physician on 10/07/2016 17:27 /
[2016-10-07] MEDS: ERTAPENEM SODIUM 1 GM in SOD CHLORIDE 0.9% 100 ML IVPB SCH (18:27)
[2016-10-07 20:57] VITALS: BP 118/56; RESP 19
[2016-10-08] MEDS: ONDANSETRON 4 MG INJ IV PRN (03:37)
[2016-10-08 05:42] LABS: ADD SCAN DIFF NO
[2016-10-08 05:52] LABS: ABNORMAL IP MESSAGE 1; BASOPHILS % 0.1 % (0.0-2.0); HEMATOCRIT 37.7 % (37.0-47.0); HEMOGLOBIN 12.9 g/dl (12.0-16.0); LYMPHOCYTES # 0.6 10^3/ul (0.8-2.9); LYMPHOCYTES % 3.1 % (15.0-51.0); MEAN CORPUSCULAR HEMOGLOBIN 31.2 pg (29.0-33.0); MEAN CORPUSCULAR HGB CONC 34.2 g/dl (32.0-37.0); MEAN CORPUSCULAR VOLUME 91.1 fl (82.0-101.0); MEAN PLATELET VOLUME 11.1 fl (7.4-10.4); MONOCYTE # 1.7 10^3/ul (0.3-0.9); NEUTROPHIL # 16.3 10^3/ul (1.6-7.5); NEUTROPHILS % 86.3 % (39.0-77.0); PLATELET COUNT 201 10^3/UL (140-415); RED BLOOD COUNT 4.14 10^6/ul (4.20-5.40); RED CELL DISTRIBUTION WIDTH 12.1 % (11.5-14.5); WHITE BLOOD COUNT 18.9 10^3/ul (4.8-10.8)
[2016-10-08 06:35] LABS: INR 1.09; PROTIME 14.1 Sec (12.2-14.2); PT RATIO 1.1
[2016-10-08 06:36] LABS: PARTIAL THROMBOPLASTIN TIME 35.3 Sec (25.0-35.0)
[2016-10-08 06:41] LABS: ALBUMIN 4.3 g/dl (3.3-4.9); ALBUMIN/GLOBULIN RATIO 1.48; BILIRUBIN,INDIRECT 0.6 mg/dl (0-1.1); BILIRUBIN,TOTAL 0.6 mg/dl (0.2-1.3); CALCIUM 8.8 mg/dl (8.4-10.2); CREATININE 0.95 mg/dl (0.44-1.00); MAGNESIUM 2.5 mg/dl (1.7-2.5); PHOSPHORUS 2.5 mg/dl (2.5-4.9); POTASSIUM 4.1 mmol/L (3.5-5.1); TOTAL PROTEIN 7.2 g/dl (6.1-8.1)
[2016-10-08 07:55] VITALS: BP 137/92; RESP 17
[2016-10-08] MEDS: PANTOPRAZOLE 40 MG INJ IV SCH (08:33)
--- NOTE | 2016-10-08 09:49 | PN ---
Date/Time of Note Date/Time of Note DATE: 10/08/16 TIME: 09:38 Assessment/Plan Lines/Catheters IV Catheter Type (from Nrs): Peripheral IV Scott in Place (from [facility]): No Assessment/Plan Assessment/Plan [facility] Progress Note Date of Service: 10/08/16 Today's Impression & Plan: Overall stable but with ongoing abdominal pain associated with nausea and vomiting and continuing to increase WBC with unclear etiology. So far being treated for possible UTI, although current clinical picture is not supportive of UTI being the main medical van driver of symptoms. Viral gastroenteritis is still a possibility. Partial small bowel obstruction from h/o pelvic surgery with partial hysterectomy and her laparoscopic hepatic cyst unroofing certainly a possibility, but her KUB's yesterday do not show obvious dilated loops of bowel. No indication for acute surgical intervention and no obvious surgical etiology for symptoms. No flatus or BM for a number of days and may benefit from bowel regimen from below. I discussed all of the above at length with the patient and answered all of her questions. With above assessment, I recommended the followin. Keep inhouse 2. Cont treatment for UTI and antimicrobial coverage (much appreciate Dr. Conteh 's excellent care) 3. Cont IV fluids 4. Symptom control 5. Strict I's and O's 6. Bowel regimen from below only 7. Liquid diet but with small intake (instructed patient); ok to have watermelon as requested 8. Consider GI consultation with possible need for endoscopic evaluation 9. Labs in am 10. Possible need for repeat CT scan with oral contrast (can likely skip the IV contrast if any renal issues; if not, may be helpful); will discuss with team tomorrow Thank you again for allowing us to participate in the care of this very pleasant lady and her wonderful family. If there are any questions, please feel free to call me at [phone]. Updated Clinical Summary: The patient is a very pleasant 49-year-old young lady with symptomatic polycystic kidney and liver disease with abdominal pain and decreased oral intake. Status post laparoscopic cyst unroofing (multiple) 09/24/2015 as an outpatient. Comorbidities: 1. BMI 29.5 2. Polycystic kidney and liver disease discovered in the summer of 2013 3. S/p laparoscopic cyst unroofing (multiple) 09/24/2015 as an outpatient at [facility] through [facility] 4. S/p partial hysterectomy in 2010 Subjective: Still with abd pain and under semi-adequate control with medications; + n/v; - d ; no sob or cp; - flatus; - BM; minimal activity Objective: Vitals: See below Exam: GENERAL: On exam, the patient was laying in bed and appeared to be uncomfortable but in no acute distress. Emesis bag at her side. ABDOMEN: Soft, mild to moderately tender and mildly distended. There are no peritoneal signs or guarding. SKIN: Skin appears to be pink and feels warm to touch. NEUROLOGIC: Patient is awake, alert, and follows commands appropriately. Exam/Review of Systems Vital Signs Vitals Vital Signs Date Time Temp Pulse Resp B/P Pulse Ox O2 Delivery O2 Flow Rate FiO2 10/08/16 07:55 98.5 86 17 137/92 97 10/07/16 08:00 Room Air 10/05/16 21:01 2.0 Intake and Output 10/07/16 10/07/16 10/08/16 15:00 23:00 07:00 Intake Total 550 ml 525 ml Balance 550 ml 525 ml Results Result Diagram: 10/08/16 0455 10/08/16 0455 HEMAL EMERY M.D. Oct 08, 2016 09:49
[2016-10-08] MEDS: ERTAPENEM SODIUM 1 GM in SOD CHLORIDE 0.9% 100 ML IVPB SCH (17:30)
[2016-10-08] MEDS: DEXTROSE 5%-0.45% NACL 1,000 ML IV SCH (17:41)
--- NOTE | 2016-10-08 18:34 | PN ---
Date/Time of Note Date/Time of Note DATE: 10/08/16 TIME: 18:33 Assessment/Plan VTE Prophylaxis VTE Prophylaxis Intervention: other Lines/Catheters IV Catheter Type (from Nrs): Peripheral IV Urinary Cath still in place: No Assessment/Plan Chief Complaint/Hosp Course A/P ABD PAIN ILEUS PKD LIVER CYSTS SEPSIS PLAN PER SURGERY AND ID Problems: Subjective 24 Hr Interval Summary Respiratory: no complaints Gastrointestinal: pain (+) Exam/Review of Systems Vital Signs Vitals Vital Signs Date Time Temp Pulse Resp B/P Pulse Ox O2 Delivery O2 Flow Rate FiO2 10/08/16 07:55 98.5 86 17 137/92 97 10/07/16 08:00 Room Air 10/05/16 21:01 2.0 Intake and Output 10/07/16 10/07/16 10/08/16 15:00 23:00 07:00 Intake Total 550 ml 525 ml Balance 550 ml 525 ml Exam Neck: supple Respiratory: clear to auscultation Cardiovascular: regular rate and rhythm Gastrointestinal: soft Genitourinary - Female: nl adnexae Results Result Diagram: 10/08/16 0455 10/08/16 0455 Results 24 hrs Laboratory Tests Test 10/08/16 04:55 White Blood Count 18.9 #H Red Blood Count 4.14 L Hemoglobin 12.9 Hematocrit 37.7 Mean Corpuscular Volume 91.1 Mean Corpuscular Hemoglobin 31.2 Mean Corpuscular Hemoglobin Concent 34.2 Red Cell Distribution Width 12.1 Platelet Count 201 Mean Platelet Volume 11.1 H Neutrophils % 86.3 H Lymphocytes % 3.1 L Monocytes % 9.0 Eosinophils % 0.0 Basophils % 0.1 Nucleated Red Blood Cells % 0.0 Neutrophils # 16.3 H Lymphocytes # 0.6 L Monocytes # 1.7 H Eosinophils # 0.0 Basophils # 0.0 Nucleated Red Blood Cells # 0.0 Prothrombin Time 14.1 Prothrombin Time Ratio 1.1 INR International Normalized Ratio 1.09 Activated Partial Thromboplast Time 35.3 H Sodium Level 132 L Potassium Level 4.1 Chloride Level 97 Carbon Dioxide Level 28 Anion Gap 11 Blood Urea Nitrogen 24 H Creatinine 0.95 Glucose Level 129 Lactic Acid Level 1.7 Calcium Level 8.8 Phosphorus Level 2.5 Magnesium Level 2.5 Total Bilirubin 0.6 Direct Bilirubin 0.00 Indirect Bilirubin 0.6 Aspartate Amino Transf (AST/SGOT) 17 Alanine Aminotransferase (ALT/SGPT) 23 Alkaline Phosphatase 53 Total Protein 7.2 Albumin 4.3 Globulin 2.90 Albumin/Globulin Ratio 1.48 Medications Medications Current Medications Dextrose/Sodium Chloride (D5-1/2ns) 1,000 ml @ 50 mls/hr Q20H IV Last administered on 10/08/16 17:41; Admin Dose 50 MLS/HR; Start 10/05/16 at 19:38 Ondansetron HCl (Zofran Inj) 4 mg Q6H PRN IV NAUSEA AND/OR VOMITING Last administered on 10/08/16 03:37; Admin Dose 4 MG; Start 10/05/16 at 20:00 Acetaminophen (Tylenol Tab) 650 mg Q6H PRN PO PAIN LEVEL 1-3 OR FEVER; Start at 20:00 Acetaminophen (Tylenol Supp) 650 mg Q6H PRN [place] PAIN LEVEL 1-3 OR FEVER; Start 10/05/16 at 20:00 Acetaminophen/ Hydrocodone Bitart ([place] (5/325)) 1 tab Q6H PRN PO MODERATE PAIN LEVEL 4-6; Start 10/05/16 at 20:00 Docusate Sodium (Colace) 100 mg Q12H PRN PO CONSTIPATION; Start 10/05/16 at 20: 00 Magnesium Hydroxide (Milk Of Mag) 30 ml DAILY PRN PO CONSTIPATION; Start at 20:00 Bisacodyl (Dulcolax) 5 mg DAILY PRN PO CONSTIPATION; Start 10/05/16 at 20:00 Zolpidem Tartrate (Ambien) 5 mg QHS PRN PO SLEEP; Start 10/05/16 at 20:00 Pantoprazole (Protonix Iv) 40 mg DAILY IV Last administered on 10/08/16 08:33 ; Admin Dose 40 MG; Start 10/06/16 at 09:00 Morphine Sulfate (morphine) 3 mg Q3 PRN IV SEVERE PAIN LEVEL 7-10 Last administered on 10/06/16 22:46; Admin Dose 3 MG; Start 10/06/16 at 00:00 Tramadol HCl (Ultram) 50 mg Q6H PRN PO PAIN Last administered on 10/06/16 06: 29; Admin Dose 50 MG; Start 10/06/16 at 06:30 Metoclopramide HCl (Reglan) 5 mg Q6H PRN IV NAUSEA; Start 10/06/16 at 10:00 Promethazine HCl 25 mg 25 mg Q6H PRN ID NAUSEA; Start 10/06/16 at 10:00 Ertapenem 1 gm/ Sodium Chloride 100 ml @ 200 mls/hr Q24H IVPB Last administered on 10/07/16t 18:27; Admin Dose 200 MLS/HR; Start 10/07/16 at 17:30 Metronidazole (Flagyl 500 Mg (Pmx)) 100 ml @ 100 mls/hr Q8 IVPB ; Start at 22:00 MARIANNE MONTELONGO MD Oct 08, 2016 18:34
--- NOTE | 2016-10-08 18:53 | PN ---
DATE: 10/08/2016 INFECTIOUS DISEASE PROGRESS NOTE SUBJECTIVE: Patient is lying comfortably in bed. She still has nausea, vomiting, no diarrhea. Abdomen is slightly distended MICROBIOLOGY: Urine culture came back negative. ANTIMICROBIALS: She is on Invanz. DIAGNOSTICS: CT of the abdomen and pelvis without contrast showed polycystic kidney disease. Small amount of free fluid and mildly distended and fluid- filled distal small bowel, which may represent ileus. X-ray of the abdomen revealed nonobstructive bowel gas pattern. PHYSICAL EXAMINATION: GENERAL: Well-nourished, well-developed, middle-aged -[place] woman who is lying comfortably in bed. HEENT: Head atraumatic, normocephalic. Sclerae anicteric. Buccal mucosa dry. NECK: Supple. Trachea midline. CHEST: Rise symmetrical. Breath sounds diminished. HEART: S1, S2. ABDOMEN: Distended, soft. Bowel tones present. EXTREMITIES: Without cyanosis. ASSESSMENT: 1. Systemic inflammatory response syndrome with nausea, vomiting and leukocytosis, etiology unclear, no evidence of urinary tract infection. Possible gastroenteritis. 2. Partial small-bowel obstruction, surgery on case, no indication for acute surgical intervention at this point. 3. Polycystic kidney disease and liver disease. PLAN: We will add empiric Flagyl. We will order blood cultures given persistent leukocytosis that is increasing. Order chest x-ray in the morning, procalcitonin level and lactic acid level. Follow surgical recommendations. Dictated By: NAFISA MOLINA GREEN BUILDING MATERIALS DESIGNER for [facility] MURILLO/VENKAT Conf#: [id number] DID#: [id number] ENOCH
[2016-10-08 21:28] VITALS: BP 127/90; RESP 17
[2016-10-08] MEDS: metroNIDAZOLE 500 MG/NS (PMX) 100 ML IVPB SCH (22:09)
[2016-10-09 05:18] LABS: ADD SCAN DIFF NO
[2016-10-09 05:34] LABS: BASOPHILS % 0.1 % (0.0-2.0); HEMATOCRIT 38.7 % (37.0-47.0); HEMOGLOBIN 12.9 g/dl (12.0-16.0); LYMPHOCYTES # 0.8 10^3/ul (0.8-2.9); LYMPHOCYTES % 4.2 % (15.0-51.0); MEAN CORPUSCULAR HEMOGLOBIN 30.6 pg (29.0-33.0); MEAN CORPUSCULAR HGB CONC 33.3 g/dl (32.0-37.0); MEAN CORPUSCULAR VOLUME 91.9 fl (82.0-101.0); MEAN PLATELET VOLUME 10.9 fl (7.4-10.4); MONOCYTE # 1.5 10^3/ul (0.3-0.9); MONOCYTES % 7.9 % (0.0-11.0); NEUTROPHIL # 16.4 10^3/ul (1.6-7.5); NEUTROPHILS % 86.8 % (39.0-77.0); PLATELET COUNT 211 10^3/UL (140-415); RED BLOOD COUNT 4.21 10^6/ul (4.20-5.40); RED CELL DISTRIBUTION WIDTH 12.1 % (11.5-14.5); WHITE BLOOD COUNT 18.8 10^3/ul (4.8-10.8)
[2016-10-09] MEDS: metroNIDAZOLE 500 MG/NS (PMX) 100 ML IVPB SCH ×3 (05:45→22:13)
[2016-10-09] MEDS: DEXTROSE 5%-0.45% NACL 1,000 ML IV SCH ×3 (07:00→22:13)
[2016-10-09 08:15] VITALS: BP 130/88; RESP 18
[2016-10-09] MEDS: PANTOPRAZOLE 40 MG INJ IV SCH (08:38)
--- NOTE | 2016-10-09 12:17 | PN ---
Date/Time of Note Date/Time of Note DATE: 10/09/16 TIME: 12:11 Assessment/Plan Lines/Catheters IV Catheter Type (from [facility] [place]): Peripheral IV Scott in Place (from [facility] [place]): No Assessment/Plan Assessment/Plan [facility] Progress Note Date of Service: 10/09/16 Today's Impression & Plan: Overall stable and slightly improved. WBC still elevated but slightly decreased from yesterday. Possible infection with possible partial small bowel obstruction ; less likely viral gastroenteritis. No indication for acute surgical intervention and no obvious surgical etiology for symptoms. No flatus or BM for a number of days and may benefit from bowel regimen from below. I discussed all of the above at length with the patient and answered all of her questions. With above assessment, I recommended the followin. Keep inhouse 2. Cont treatment for UTI and antimicrobial coverage (much appreciate Dr. Conteh 's excellent care) 3. Cont IV fluids 4. Symptom control 5. Strict I's and O's 6. Bowel regimen from below only 7. Ice chips and sips of water ok, but do not advance 8. Please involve GI for consultation with possible need for endoscopic evaluation 9. Labs in am 10. Possible need for repeat CT scan with oral contrast (can likely skip the IV contrast if any renal issues; if not, may be helpful); will discuss with team Thank you again for allowing us to participate in the care of this very pleasant lady and her wonderful family. If there are any questions, please feel free to call me at [phone]. Updated Clinical Summary: The patient is a very pleasant 49-year-old young lady with symptomatic polycystic kidney and liver disease with abdominal pain and decreased oral intake. Status post laparoscopic cyst unroofing (multiple) 09/24/2015 as an outpatient. Comorbidities: 1. BMI 29.5 2. Polycystic kidney and liver disease discovered in the summer of 2013 3. S/p laparoscopic cyst unroofing (multiple) 09/24/2015 as an outpatient at [facility] through [facility] 4. S/p partial hysterectomy in 2010 Subjective: Still with abd pain and under semi-adequate control with medications; + n/v; - d ; no sob or cp; - flatus; - BM; more activity (took a shower today and reports feeling better than yesterday). Objective: Vitals: See below Exam: GENERAL: On exam, the patient was laying in bed and appeared to be comfortable and in no acute distress. Emesis bag at her side. ABDOMEN: Soft, mildly tender and less distended than yesterday. There are no peritoneal signs or guarding. SKIN: Skin appears to be pink and feels warm to touch. NEUROLOGIC: Patient is awake, alert, and follows commands appropriately. Exam/Review of Systems Vital Signs Vitals Vital Signs Date Time Temp Pulse Resp B/P Pulse Ox O2 Delivery O2 Flow Rate FiO2 10/09/16 08:15 98.0 85 18 130/88 98 10/07/16 08:00 Room Air 10/05/16 21:01 2.0 Intake and Output 10/08/16 10/08/16 10/09/16 15:00 23:00 07:00 Intake Total 600 ml 750 ml Output Total 1000 ml Balance -400 ml 750 ml Results Result Diagram: 10/09/16 0440 10/08/16 0455 HEMAL EMERY M.D. Oct 09, 2016 12:17
[2016-10-09] MEDS ORDERED: SOD CHLORIDE 0.9% 500 ML IV ONE (12:30)
--- NOTE | 2016-10-09 13:47 | RADRPT ---
PROCEDURE: XR Chest. CLINICAL INDICATION: Pneumonia. TECHNIQUE: Single AP portable chest COMPARISON: None. FINDINGS: The cardiomediastinal silhouette is within normal limits of size. Mild tortuosity and ectasia of the thoracic aorta. Atherosclerotic calcification of the aorta. The lungs are clear without pleural effusion or focal consolidation. No pneumothorax. The osseous structures and soft tissues are unrema rkable. IMPRESSION: 1. No evidence for active cardiopulmonary disease. RPTAT:AAJJ Peace Davis Physician Date Time Electronically viewed and signed by Physician Monika on 10/09/2016 13:46 MANOJ/
[2016-10-09] MEDS: ERTAPENEM SODIUM 1 GM in SOD CHLORIDE 0.9% 100 ML IVPB SCH (18:24)
--- NOTE | 2016-10-09 20:16 | PN ---
DATE: 10/09/2016 SUBJECTIVE: The patient remains unchanged, still with nausea, vomiting and abdominal pain. LABORATORIES: WBC today 18.8, neutrophils 86.8, no bands. BUN 24, creatinine 0.95. DIAGNOSTICS: Chest x-ray this morning revealed no evidence for active cardiopulmonary disease. ANTIMICROBIALS: The patient is on: 1. Invanz 2. Flagyl. PHYSICAL EXAMINATION: GENERAL: This is a well-developed middle-aged -[place] woman who is alert, in no distress. HEENT: Head atraumatic, normocephalic. Sclerae anicteric. Buccal mucosa pink. NECK: Supple. CHEST: Rise symmetrical. Breath sounds clear. HEART: S1, S2. ABDOMEN: Distended with diffuse pain on palpation. EXTREMITIES: Without cyanosis. ASSESSMENT: 1. Systemic inflammatory response syndrome with persistent leukocytosis with nausea, vomiting and a bdominal pain, a partial small bowel obstruction, possible gastroenteritis, on Invanz and Flagyl. 2. Polycystic kidney disease. PLAN: The patient remains clinically unchanged, still significantly symptomatic. She is being seen by Dr. Callahan in surgical consultation. She did have a CT of the abdomen and pelvis on admission w ithout contrast. Given persistence of her symptoms, I recommend to repeat CT abdomen and pelvis wit h IV contrast. The patient, however, states that she does not want to do it because it affects her kidney function. We will continue her on current regimen in regards to antibiotics. Dictated By: NAFISA MOLINA MARKETING AGENT for EDEN MURILLO/NTS Conf#: [id number] DID#: [id number]
[2016-10-09] MEDS ORDERED: NA PHOSPHATE/BIPHOS 133 ML ENEMA PR PRN (20:30)
[2016-10-09] MEDS ORDERED: DOCUSATE SODIUM 100 MG CAP PO PRN (20:30)
[2016-10-09] MEDS ORDERED: BISACODYL 10 MG SUPP PR PRN (20:30)
[2016-10-09 20:53] VITALS: BP 134/92; RESP 18
[2016-10-10] MEDS: metroNIDAZOLE 500 MG/NS (PMX) 100 ML IVPB SCH ×2 (05:05→14:20)
[2016-10-10] MEDS: PANTOPRAZOLE 40 MG INJ IV SCH (09:00)
[2016-10-10 09:33] LABS: ADD SCAN DIFF NO
[2016-10-10 09:36] LABS: BASOPHILS % 0.2 % (0.0-2.0); EOSINOPHILS # 0.1 10^3/ul (0.0-0.5); EOSINOPHILS % 0.4 % (0.0-7.0); HEMATOCRIT 38.5 % (37.0-47.0); LYMPHOCYTES # 1.2 10^3/ul (0.8-2.9); LYMPHOCYTES % 9.3 % (15.0-51.0); MEAN CORPUSCULAR HEMOGLOBIN 31.1 pg (29.0-33.0); MEAN CORPUSCULAR HGB CONC 33.8 g/dl (32.0-37.0); MEAN CORPUSCULAR VOLUME 92.1 fl (82.0-101.0); MEAN PLATELET VOLUME 10.1 fl (7.4-10.4); MONOCYTE # 1.1 10^3/ul (0.3-0.9); MONOCYTES % 8.1 % (0.0-11.0); NEUTROPHIL # 10.7 10^3/ul (1.6-7.5); PLATELET COUNT 271 10^3/UL (140-415); RED BLOOD COUNT 4.18 10^6/ul (4.20-5.40); RED CELL DISTRIBUTION WIDTH 12.1 % (11.5-14.5); WHITE BLOOD COUNT 13.2 10^3/ul (4.8-10.8)
[2016-10-10 09:54] LABS: INR 1.12; PROTIME 14.4 Sec (12.2-14.2); PT RATIO 1.1
[2016-10-10 10:02] LABS: ALBUMIN 4.4 g/dl (3.3-4.9); ALBUMIN/GLOBULIN RATIO 1.18; BILIRUBIN,INDIRECT 0.7 mg/dl (0-1.1); BILIRUBIN,TOTAL 0.7 mg/dl (0.2-1.3); CALCIUM 9.3 mg/dl (8.4-10.2); CREATININE 0.88 mg/dl (0.44-1.00); POTASSIUM 3.8 mmol/L (3.5-5.1); TOTAL PROTEIN 8.1 g/dl (6.1-8.1)
[2016-10-10 10:03] LABS: MAGNESIUM 2.7 mg/dl (1.7-2.5); PHOSPHORUS 3.1 mg/dl (2.5-4.9)
--- NOTE | 2016-10-10 12:32 | RADRPT ---
PROCEDURE: XR Abdomen 1 View. CLINICAL INDICATION: Abdominal pain, bowel obstruction. TECHNIQUE: AP abdomen x-ray. COMPARISON: October 07, 2016 FINDINGS: Scattered gas is noted in the transverse colon. The remainder of the bowel appears mostly decompres sed. No dilated loops of small bowel are observed. No organomegaly is identified. A few phleboliths are seen in the pelvis. The osseous structures are intact. IMPRESSION: Nonspecific bowel gas pattern. If further characterization of the abdomen is needed CT should be considered. RPTAT: AA .Alcides Burger MD, Date Time Electronically viewed and signed by .Alcides Burger MD, on 10/10/2016 12:32 .P/
[2016-10-10] MEDS: DEXTROSE 5%-0.45% NACL 1,000 ML IV SCH ×2 (14:19→23:59)
--- NOTE | 2016-10-10 17:31 | PN ---
Date/Time of Note Date/Time of Note DATE: 10/10/16 TIME: 17:28 Assessment/Plan Lines/Catheters IV Catheter Type (from [facility]): Peripheral IV Scott in Place (from [facility]): No Assessment/Plan Assessment/Plan [facility] Progress Note Date of Service: 10/10/16 Today's Impression & Plan: Overall stable and continuing to improve. WBC lower today around 13. Patient also had a spontaneous bowel movement that was unassisted. Certainly could be consistent with partial small bowel obstruction that is resolving. No indication for acute surgical intervention and no obvious surgical etiology for symptoms. I discussed all of the above at length with the patient and her sister and answered all of their questions. With above assessment, I recommended the followin. Keep inhouse 2. Cont treatment for UTI and antimicrobial coverage (much appreciate Dr. Conteh 's excellent care) 3. Cont IV fluids 4. Symptom control 5. Strict I's and O's 6. Bowel regimen from below only 7. Clear liquid diet and advance slowly 8. Follow up with GIs recommendations (much appreciated Dr. Harrison's excellent input) 9. Labs in am Thank you again for allowing us to participate in the care of this very pleasant lady and her wonderful family. If there are any questions, please feel free to call me at [phone]. Updated Clinical Summary: The patient is a very pleasant 49-year-old young lady with symptomatic polycystic kidney and liver disease with abdominal pain and decreased oral intake. Status post laparoscopic cyst unroofing (multiple) 09/24/2015 as an outpatient. Comorbidities: 1. BMI 29.5 2. Polycystic kidney and liver disease discovered in the summer of 2013 3. S/p laparoscopic cyst unroofing (multiple) 09/24/2015 as an outpatient at [facility] 4. S/p partial hysterectomy in 2010 Subjective: No major events or complaints and feels overall improved with one bowel movement. Much less abd pain and under adequate control with medications; + n/v ; + d; no sob or cp; +flatus; + BM; + activity. Objective: Vitals: See below Exam: GENERAL: On exam, the patient was laying in bed and appeared to be comfortable and in no acute distress. ABDOMEN: Soft, non-tender and non-distended. There are no peritoneal signs or guarding. SKIN: Skin appears to be pink and feels warm to touch. NEUROLOGIC: Patient is awake, alert, and follows commands appropriately. Exam/Review of Systems Vital Signs Vitals Vital Signs Date Time Temp Pulse Resp B/P Pulse Ox O2 Delivery O2 Flow Rate FiO2 10/09/16 20:53 98.2 101 18 134/92 98 10/07/16 08:00 Room Air Intake and Output 10/09/16 10/09/16 10/10/16 14:59 22:59 06:59 Intake Total 500 ml 200 ml 620 ml Output Total 950 ml 650 ml Balance 500 ml -750 ml -30 ml Results Result Diagram: 10/10/16 0925 10/10/16 0925 HEMAL EMERY M.D. Oct 10, 2016 17:31
[2016-10-10] MEDS: ERTAPENEM SODIUM 1 GM in SOD CHLORIDE 0.9% 100 ML IVPB SCH (18:23)
--- NOTE | 2016-10-10 19:13 | CONS ---
Date/Time of Note Date/Time of Note DATE: 10/10/16 TIME: 19:10 Assessment/Plan Assessment/Plan Additional Assessment/Plan 1. Abdominal pain nausea and vomiting rule out peptic ulcer disease rule out gastritis based on KUB report there is no evidence of bowel obstruction 2. Polycystic kidney disease. 3. UTI Plan We will proceed with EGD to find out the cause of abdominal pain nausea and vomiting Continue antibiotic for UTI. Monitor WBC Consultation Date/Type/Reason Admit Date/Time Oct 05, 2016 at 17:18 Hx of Present Illness Patient admitted with a complaint of abdominal pain nausea and vomiting. 51-year-old female with a history of polycystic kidney disease status post degloving of the cyst laparoscopically as an outpatient admitted to the hospital with abdominal pain nausea vomiting. No GI bleeding no diarrhea no chest pain or shortness of breath. 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 Constitutional: poor po, requiring IVF Eyes: no complaints Respiratory: no complaints Cardiovascular: no complaints Gastrointestinal: pain (+) Genitourinary: flank pain Musculoskeletal: no complaints Skin: no complaints Family History Significant Family History: no pertinent family hx Social History Alcohol Use: none Smoking Status: Never smoker Drug Use: none Exam/Review of Systems Vital Signs Vitals Vital Signs Date Time Temp Pulse Resp B/P Pulse Ox O2 Delivery O2 Flow Rate FiO2 10/09/16 20:53 98.2 101 18 134/92 98 10/07/16 08:00 Room Air Intake and Output 10/09/16 10/09/16 10/10/16 15:00 23:00 07:00 Intake Total 500 ml 200 ml 620 ml Output Total 950 ml 650 ml Balance 500 ml -750 ml -30 ml Exam Head: atraumatic, normocephalic ENMT: nl external ears & nose, nl lips & teeth, nl nasal mucosa & septum Neck: non-tender, supple Respiratory: clear to auscultation, normal air movement Cardiovascular: nl pulses, regular rate and rhythm Gastrointestinal: distended, soft, tender Results Result Diagram: 10/10/1625 10/10/16 0925 Results 24 hrs Laboratory Tests Test 10/10/16 09:25 10/10/16 09:35 White Blood Count 13.2 #H Red Blood Count 4.18 L Hemoglobin 13.0 Hematocrit 38.5 Mean Corpuscular Volume 92.1 Mean Corpuscular Hemoglobin 31.1 Mean Corpuscular Hemoglobin Concent 33.8 Red Cell Distribution Width 12.1 Platelet Count 271 # Mean Platelet Volume 10.1 Neutrophils % 81.0 H Lymphocytes % 9.3 L Monocytes % 8.1 Eosinophils % 0.4 Basophils % 0.2 Nucleated Red Blood Cells % 0.0 Neutrophils # 10.7 H Lymphocytes # 1.2 Monocytes # 1.1 H Eosinophils # 0.1 Basophils # 0.0 Nucleated Red Blood Cells # 0.0 Prothrombin Time 14.4 H Prothrombin Time Ratio 1.1 INR International Normalized Ratio 1.12 Activated Partial Thromboplast Time 26.0 Sodium Level 139 Potassium Level 3.8 Chloride Level 99 Carbon Dioxide Level 28 Anion Gap 16 Blood Urea Nitrogen 40 H Creatinine 0.88 Glucose Level 125 Lactic Acid Level 1.1 Calcium Level 9.3 Phosphorus Level 3.1 Magnesium Level 2.7 H Total Bilirubin 0.7 Direct Bilirubin 0.00 Indirect Bilirubin 0.7 Aspartate Amino Transf (AST/SGOT) 21 Alanine Aminotransferase (ALT/SGPT) 22 Alkaline Phosphatase 69 Total Protein 8.1 Albumin 4.4 Globulin 3.70 H Albumin/Globulin Ratio 1.18 Lipase 592 H Amylase Level 198 H Medications Medications Current Medications Dextrose/Sodium Chloride (D5-1/2ns) 1,000 ml @ 100 mls/hr Q10H IV Last administered on 10/10/16 14:19; Admin Dose 100 MLS/HR; Start 10/05/16 at 19:38 Ondansetron HCl (Zofran Inj) 4 mg Q6H PRN IV NAUSEA AND/OR VOMITING Last administered on 10/08/16 03:37; Admin Dose 4 MG; Start 10/05/16 at 20:00 Acetaminophen (Tylenol Tab) 650 mg Q6H PRN PO PAIN LEVEL 1-3 OR FEVER; Start at 20:00 Acetaminophen (Tylenol Supp) 650 mg Q6H PRN [place] PAIN LEVEL 1-3 OR FEVER; Start 10/05/16 at 20:00 Acetaminophen/ Hydrocodone Bitart ([place] (5/325)) 1 tab Q6H PRN PO MODERATE PAIN LEVEL 4-6; Start 10/05/16 at 20:00 Magnesium Hydroxide (Milk Of Mag) 30 ml DAILY PRN PO CONSTIPATION; Start at 20:00 Bisacodyl (Dulcolax) 5 mg DAILY PRN PO CONSTIPATION; Start 10/05/16 at 20:00 Zolpidem Tartrate (Ambien) 5 mg QHS PRN PO SLEEP; Start 10/05/16 at 20:00 Pantoprazole (Protonix Iv) 40 mg DAILY IV Last administered on 10/08/16 08:33 ; Admin Dose 40 MG; Start 10/06/16 at 09:00 Morphine Sulfate (morphine) 3 mg Q3 PRN IV SEVERE PAIN LEVEL 7-10 Last administered on 10/06/16 22:46; Admin Dose 3 MG; Start 10/06/16 at 00:00 Tramadol HCl (Ultram) 50 mg Q6H PRN PO PAIN Last administered on 10/06/16 06: 29; Admin Dose 50 MG; Start 10/06/16 at 06:30 Metoclopramide HCl (Reglan) 5 mg Q6H PRN IV NAUSEA; Start 10/06/16 at 10:00 Promethazine HCl 25 mg 25 mg Q6H PRN [place] NAUSEA; Start 10/06/16 at 10:00 Ertapenem 1 gm/ Sodium Chloride 100 ml @ 200 mls/hr Q24H IVPB Last administered on 10/10/16 18:23; Admin Dose 200 MLS/HR; Start 10/07/16 at 17:30 Metronidazole (Flagyl 500 Mg (Pmx)) 100 ml @ 100 mls/hr Q8 IVPB Last administered on 10/10/16 14:20; Admin Dose 100 MLS/HR; Start 10/08/16 at 22:00 Bisacodyl (Dulcolax Supp) 10 mg BID PRN [place] CONSTIPATION; Start 10/09/16 at 20: 30 Sodium Biphosphate/ Sodium Phosphate (Fleet Enema) 133 ml BID PRN [place] CONSTIPATION; Start 10/09/16 at 20:30 Docusate Sodium (Colace) 100 mg BID PRN PO CONSTIPATION; Start 10/09/16 at 20: 30 OBED SEARS MD Oct 10, 2016 19:13
[2016-10-10 20:46] VITALS: BP 125/71; RESP 18
--- NOTE | 2016-10-10 21:20 | CONS ---
Date/Time of Note Date/Time of Note DATE: 10/10/16 TIME: 21:17 Assessment/Plan Assessment/Plan Chief Complaint/Hosp Course SUBJECTIVE: Alert, still with nausea and abdominal pain, also on/off diarrhea. ANTIMICROBIALS: The patient is on: 1. Invanz 2. Flagyl. PHYSICAL EXAMINATION: GENERAL: This is a well-developed middle-aged -[place] woman who is alert, in no distress. HEENT: Head atraumatic, normocephalic. Sclerae anicteric. Buccal mucosa pink. NECK: Supple. CHEST: Rise symmetrical. Breath sounds clear. HEART: S1, S2. ABDOMEN: Distended with diffuse pain on palpation. EXTREMITIES: Without cyanosis. ASSESSMENT: 1. Systemic inflammatory response syndrome with persistent leukocytosis with nausea, vomiting and abdominal pain, possible partial small bowel obstruction, possible gastroenteritis, on Invanz and Flagyl. 2. Polycystic kidney disease. PLAN: The patient remains clinically unchanged. WBC decreasing, continue present care, f/u GI and surgical rec-s [facility] pt/staff Problems: Consultation Date/Type/Reason Admit Date/Time Oct 05, 2016 at 17:18 Initial Consult Date Type of Consultation: ID Exam/Review of Systems Vital Signs Vitals Vital Signs Date Time Temp Pulse Resp B/P Pulse Ox O2 Delivery O2 Flow Rate FiO2 10/10/16 20:46 98.5 81 18 125/71 97 10/07/16 08:00 Room Air Intake and Output 10/09/16 10/09/16 10/10/16 15:00 23:00 07:00 Intake Total 500 ml 200 ml 620 ml Output Total 950 ml 650 ml Balance 500 ml -750 ml -30 ml Results Result Diagram: 10/10/16 0925 10/10/16 0925 Results 24 hrs Laboratory Tests Test 10/10/16 09:25 10/10/16 09:35 White Blood Count 13.2 #H Red Blood Count 4.18 L Hemoglobin 13.0 Hematocrit 38.5 Mean Corpuscular Volume 92.1 Mean Corpuscular Hemoglobin 31.1 Mean Corpuscular Hemoglobin Concent 33.8 Red Cell Distribution Width 12.1 Platelet Count 271 # Mean Platelet Volume 10.1 Neutrophils % 81.0 H Lymphocytes % 9.3 L Monocytes % 8.1 Eosinophils % 0.4 Basophils % 0.2 Nucleated Red Blood Cells % 0.0 Neutrophils # 10.7 H Lymphocytes # 1.2 Monocytes # 1.1 H Eosinophils # 0.1 Basophils # 0.0 Nucleated Red Blood Cells # 0.0 Prothrombin Time 14.4 H Prothrombin Time Ratio 1.1 INR International Normalized Ratio 1.12 Activated Partial Thromboplast Time 26.0 Sodium Level 139 Potassium Level 3.8 Chloride Level 99 Carbon Dioxide Level 28 Anion Gap 16 Blood Urea Nitrogen 40 H Creatinine 0.88 Glucose Level 125 Lactic Acid Level 1.1 Calcium Level 9.3 Phosphorus Level 3.1 Magnesium Level 2.7 H Total Bilirubin 0.7 Direct Bilirubin 0.00 Indirect Bilirubin 0.7 Aspartate Amino Transf (AST/SGOT) 21 Alanine Aminotransferase (ALT/SGPT) 22 Alkaline Phosphatase 69 Total Protein 8.1 Albumin 4.4 Globulin 3.70 H Albumin/Globulin Ratio 1.18 Lipase 592 H Amylase Level 198 H Medications Medications Current Medications Dextrose/Sodium Chloride (D5-1/2ns) 1,000 ml @ 100 mls/hr Q10H IV Last administered on 10/10/16 14:19; Admin Dose 100 MLS/HR; Start 10/05/16 at 19:38 Ondansetron HCl (Zofran Inj) 4 mg Q6H PRN IV NAUSEA AND/OR VOMITING Last administered on 10/08/16 03:37; Admin Dose 4 MG; Start 10/05/16 at 20:00 Acetaminophen (Tylenol Tab) 650 mg Q6H PRN PO PAIN LEVEL 1-3 OR FEVER; Start at 20:00 Acetaminophen (Tylenol Supp) 650 mg Q6H PRN [place] PAIN LEVEL 1-3 OR FEVER; Start 10/05/16 at 20:00 Acetaminophen/ Hydrocodone Bitart ([place] (5/325)) 1 tab Q6H PRN PO MODERATE PAIN LEVEL 4-6; Start 10/05/16 at 20:00 Magnesium Hydroxide (Milk Of Mag) 30 ml DAILY PRN PO CONSTIPATION; Start at 20:00 Bisacodyl (Dulcolax) 5 mg DAILY PRN PO CONSTIPATION; Start 10/05/16 at 20:00 Zolpidem Tartrate (Ambien) 5 mg QHS PRN PO SLEEP; Start 10/05/16 at 20:00 Pantoprazole (Protonix Iv) 40 mg DAILY IV Last administered on 10/08/16 08:33 ; Admin Dose 40 MG; Start 10/06/16 at 09:00 Morphine Sulfate (morphine) 3 mg Q3 PRN IV SEVERE PAIN LEVEL 7-10 Last administered on 10/06/16 22:46; Admin Dose 3 MG; Start 10/06/16 at 00:00 Tramadol HCl (Ultram) 50 mg Q6H PRN PO PAIN Last administered on 10/06/16 06: 29; Admin Dose 50 MG; Start 10/06/16 at 06:30 Metoclopramide HCl (Reglan) 5 mg Q6H PRN IV NAUSEA; Start 10/06/16 at 10:00 Promethazine HCl 25 mg 25 mg Q6H PRN [place] NAUSEA; Start 10/06/16 at 10:00 Ertapenem 1 gm/ Sodium Chloride 100 ml @ 200 mls/hr Q24H IVPB Last administered on 10/10/16 18:23; Admin Dose 200 MLS/HR; Start 10/07/16 at 17:30 Metronidazole (Flagyl 500 Mg (Pmx)) 100 ml @ 100 mls/hr Q8 IVPB Last administered on 10/10/16 14:20; Admin Dose 100 MLS/HR; Start 10/08/16 at 22:00 Bisacodyl (Dulcolax Supp) 10 mg BID PRN [place] CONSTIPATION; Start 10/09/16 at 20: 30 Sodium Biphosphate/ Sodium Phosphate (Fleet Enema) 133 ml BID PRN [place] CONSTIPATION; Start 10/09/16 at 20:30 Docusate Sodium (Colace) 100 mg BID PRN PO CONSTIPATION; Start 10/09/16 at 20: 30 NAFISA MOLINA NP Oct 10, 2016 21:20
[2016-10-11] MEDS: metroNIDAZOLE 500 MG/NS (PMX) 100 ML IVPB SCH ×2 (00:59→05:27)
[2016-10-11 06:00] LABS: ADD SCAN DIFF NO
[2016-10-11 06:20] LABS: BASOPHILS % 0.2 % (0.0-2.0); EOSINOPHILS # 0.1 10^3/ul (0.0-0.5); HEMATOCRIT 31.7 % (37.0-47.0); HEMOGLOBIN 10.7 g/dl (12.0-16.0); LYMPHOCYTES # 1.4 10^3/ul (0.8-2.9); LYMPHOCYTES % 23.7 % (15.0-51.0); MEAN CORPUSCULAR HEMOGLOBIN 31.4 pg (29.0-33.0); MEAN CORPUSCULAR HGB CONC 33.8 g/dl (32.0-37.0); MEAN PLATELET VOLUME 10.4 fl (7.4-10.4); MONOCYTE # 0.8 10^3/ul (0.3-0.9); NEUTROPHIL # 3.6 10^3/ul (1.6-7.5); NEUTROPHILS % 59.3 % (39.0-77.0); PLATELET COUNT 212 10^3/UL (140-415); RED BLOOD COUNT 3.41 10^6/ul (4.20-5.40); RED CELL DISTRIBUTION WIDTH 11.9 % (11.5-14.5)
[2016-10-11 06:31] LABS: INR 1.21; PROTIME 15.4 Sec (12.2-14.2); PT RATIO 1.2
[2016-10-11 06:32] LABS: PARTIAL THROMBOPLASTIN TIME 27.5 Sec (25.0-35.0)
[2016-10-11 06:50] LABS: ALBUMIN 3.4 g/dl (3.3-4.9); ALBUMIN/GLOBULIN RATIO 1.17; BILIRUBIN,INDIRECT 0.7 mg/dl (0-1.1); BILIRUBIN,TOTAL 0.7 mg/dl (0.2-1.3); CALCIUM 8.5 mg/dl (8.4-10.2); CREATININE 0.85 mg/dl (0.44-1.00); PHOSPHORUS 2.5 mg/dl (2.5-4.9); POTASSIUM 3.4 mmol/L (3.5-5.1); TOTAL PROTEIN 6.3 g/dl (6.1-8.1)
[2016-10-11 06:51] LABS: MAGNESIUM 2.3 mg/dl (1.7-2.5)
[2016-10-11 07:57] VITALS: BP 124/71; RESP 18
[2016-10-11] MEDS: PANTOPRAZOLE 40 MG INJ IV SCH (09:00)
[2016-10-11] MEDS: DEXTROSE 5%-0.45% NACL 1,000 ML IV SCH ×2 (10:23→20:54)
[2016-10-11] MEDS ORDERED: PROPOFOL 40 ML ONE (12:28)
[2016-10-11] MEDS ORDERED: LIDOCAINE 2% (SDV) 5 ML INJ ONE (12:28)
[2016-10-11 12:34] VITALS: BP 110/75; PULSE 72; RESP 18
--- NOTE | 2016-10-11 12:52 | PRO ---
Date/Time of Note Date/Time of Note DATE: 10/11/16 TIME: 12:47 Conscious Sedation PROCEDURE NOTE Start Time: 12:25 Stop Time: 12:45 PROCEDURE: EGD WITH BIOPSY MAC given by Dr. Gruber INDICATION: [ ] Abdominal pain nausea vomiting PROCEDURE LINER WORKER: [ ] Dr Obed Harrison CONSENT: Consent: Discussion of risks and benefits of conscious, including, but not limited to (respiratory depression, over-sedation, and hematoma at IV site) were discussed with family. PROCEDURE SUMMARY: [Moderate] sedation was achieved using [ ] and [ ]. Patient was monitored throughout the time of sedation, and I attest to being present during the entire course of sedation ESTIMATED BLOOD LOSS: [ ] ZERO Patient is a 51-year-old female undergoing this procedure for abdominal pain nausea and vomiting for last 5-6 days. The risk of the procedure related and related complication anesthetic risks were thoroughly explained and informed consent was obtained. Patient was brought to the GI lab and sedated by Dr. Gruber, after optimal sedation scope was passed with much is in the esophagus. Esophagus was grossly within normal limit. Z line was at 38 cm and it was regular. Stomach mucosa revealed erosive gastritis, more so in the antrum. 3-4 biopsies randomly obtained to rule out H. pylori infection. Scope was passed into the duodenal bulb and there was a 2 cm sub-endothelial lesion. This lesion was moving submucosally. Second part of the duodenum was within normal limit. Retro-was in the stomach also was normal. Impression 1. Erosive gastritis 2. Sub-endothelial 2 cm lesion in the duodenal bulb 3. Normal duodenum 4. Normal Z line at 38 cm 5. Normal esophagus Plan Continue PPI pending biopsy report Patient may need endoscopic ultrasound to find out type of sub-endothelial lesion, especially whether it is extra luminal from the cyst or intra-luminal. OBED HARRISON MD Oct 11, 2016 12:52
--- NOTE | 2016-10-11 12:56 | CONS ---
Date/Time of Note Date/Time of Note DATE: 10/11/16 TIME: 12:54 Assessment/Plan Assessment/Plan Chief Complaint/Hosp Course SUBJECTIVE: No acute changes, no fevers ANTIMICROBIALS: The patient is on: 1. Invanz 2. Flagyl. PHYSICAL EXAMINATION: GENERAL: This is a well-developed middle-aged -[place]i woman who is alert, in no distress. HEENT: Head atraumatic, normocephalic. Sclerae anicteric. Buccal mucosa pink. NECK: Supple. CHEST: Rise symmetrical. Breath sounds clear. HEART: S1, S2. ABDOMEN: Distended with diffuse pain on palpation. EXTREMITIES: Without cyanosis. ASSESSMENT: 1. Systemic inflammatory response syndrome with persistent leukocytosis with nausea, vomiting and abdominal pain, possible partial small bowel obstruction, possible gastroenteritis, on Invanz and Flagyl. 2. Polycystic kidney disease. PLAN: The patient remains clinically stable, pending EGD, white blood cell count decreased to normal. DC antibiotics and observe. Follow surgical and gastroenterology recommendations. [facility] staff Problems: Consultation Date/Type/Reason Admit Date/Time Oct 05, 2016 at 17:18 Type of Consultation: ID Exam/Review of Systems Vital Signs Vitals Vital Signs Date Time Temp Pulse Resp B/P Pulse Ox O2 Delivery O2 Flow Rate FiO2 10/11/16 12:34 72 18 110/75 98 Room Air 10/11/16 07:57 98.7 Intake and Output 10/10/16 10/10/16 10/11/16 15:00 23:00 07:00 Intake Total 700 ml 500 ml 450 ml Balance 700 ml 500 ml 450 ml Results Result Diagram: 10/11/16 0531 10/11/16 0531 Results 24 hrs Laboratory Tests Test 10/11/16 05:31 White Blood Count 6.0 # Red Blood Count 3.41 L Hemoglobin 10.7 L Hematocrit 31.7 L Mean Corpuscular Volume 93.0 Mean Corpuscular Hemoglobin 31.4 Mean Corpuscular Hemoglobin Concent 33.8 Red Cell Distribution Width 11.9 Platelet Count 212 # Mean Platelet Volume 10.4 Neutrophils % 59.3 Lymphocytes % 23.7 Monocytes % 14.0 H Eosinophils % 2.0 Basophils % 0.2 Nucleated Red Blood Cells % 0.0 Neutrophils # 3.6 Lymphocytes # 1.4 Monocytes # 0.8 Eosinophils # 0.1 Basophils # 0.0 Nucleated Red Blood Cells # 0.0 Prothrombin Time 15.4 H Prothrombin Time Ratio 1.2 INR International Normalized Ratio 1.21 Activated Partial Thromboplast Time 27.5 Sodium Level 139 Potassium Level 3.4 L Chloride Level 102 Carbon Dioxide Level 30 Anion Gap 10 # Blood Urea Nitrogen 28 #H Creatinine 0.85 Glucose Level 105 Calcium Level 8.5 Phosphorus Level 2.5 Magnesium Level 2.3 Total Bilirubin 0.7 Direct Bilirubin 0.00 Indirect Bilirubin 0.7 Aspartate Amino Transf (AST/SGOT) 18 Alanine Aminotransferase (ALT/SGPT) 24 Alkaline Phosphatase 55 Total Protein 6.3 # Albumin 3.4 # Globulin 2.90 Albumin/Globulin Ratio 1.17 Amylase Level 209 H Lipase 997 H Medications Medications Current Medications Dextrose/Sodium Chloride (D5-1/2ns) 1,000 ml @ 100 mls/hr Q10H IV Last administered on 10/11/16 10:23; Admin Dose 100 MLS/HR; Start 10/05/16 at 19:38 Ondansetron HCl (Zofran Inj) 4 mg Q6H PRN IV NAUSEA AND/OR VOMITING Last administered on 10/08/16 03:37; Admin Dose 4 MG; Start 10/05/16 at 20:00 Acetaminophen (Tylenol Tab) 650 mg Q6H PRN PO PAIN LEVEL 1-3 OR FEVER; Start at 20:00 Acetaminophen (Tylenol Supp) 650 mg Q6H PRN IN PAIN LEVEL 1-3 OR FEVER; Start 10/05/16 at 20:00 Acetaminophen/ Hydrocodone Bitart ([place] (5/325)) 1 tab Q6H PRN PO MODERATE PAIN LEVEL 4-6; Start 10/05/16 at 20:00 Magnesium Hydroxide (Milk Of Mag) 30 ml DAILY PRN PO CONSTIPATION; Start at 20:00 Bisacodyl (Dulcolax) 5 mg DAILY PRN PO CONSTIPATION; Start 10/05/16 at 20:00 Zolpidem Tartrate (Ambien) 5 mg QHS PRN PO SLEEP; Start 10/05/16 at 20:00 Pantoprazole (Protonix Iv) 40 mg DAILY IV Last administered on 10/08/16 08:33 ; Admin Dose 40 MG; Start 10/06/16 at 09:00 Morphine Sulfate (morphine) 3 mg Q3 PRN IV SEVERE PAIN LEVEL 7-10 Last administered on 10/06/16 22:46; Admin Dose 3 MG; Start 10/06/16 at 00:00 Tramadol HCl (Ultram) 50 mg Q6H PRN PO PAIN Last administered on 10/06/16 06: 29; Admin Dose 50 MG; Start 10/06/16 at 06:30 Metoclopramide HCl (Reglan) 5 mg Q6H PRN IV NAUSEA; Start 10/06/16 at 10:00 Promethazine HCl 25 mg 25 mg Q6H PRN IN NAUSEA; Start 10/06/16 at 10:00 Ertapenem 1 gm/ Sodium Chloride 100 ml @ 200 mls/hr Q24H IVPB Last administered on 10/10/16 18:23; Admin Dose 200 MLS/HR; Start 10/07/16 at 17:30 Metronidazole (Flagyl 500 Mg (Pmx)) 100 ml @ 100 mls/hr Q8 IVPB Last administered on 10/11/16 05:27; Admin Dose 100 MLS/HR; Start 10/08/16 at 22:00 Bisacodyl (Dulcolax Supp) 10 mg BID PRN IN CONSTIPATION; Start 10/09/16 at 20: 30 Sodium Biphosphate/ Sodium Phosphate (Fleet Enema) 133 ml BID PRN IN CONSTIPATION; Start 10/09/16 at 20:30 Docusate Sodium 100 mg 100 mg BID PRN PO CONSTIPATION; Start 10/09/16 at 20:30 Potassium Chloride (KCl 40 MEQ/250 ML NS) 250 ml @ 62.5 mls/hr ONCE ONCE IVPB ; Start 10/11/16 at 13:00; Stop 10/11/16 at 16:59; Status NAFISA LAUREN NP Oct 11, 2016 12:55
[2016-10-11] MEDS ORDERED: POTASSIUM CHLORIDE 250 ML IVPB ONE (13:00)
[2016-10-11 13:12] VITALS: BP 138/89; PULSE 70; RESP 12
--- NOTE | 2016-10-11 13:12 | PN ---
Date/Time of Note Date/Time of Note DATE: 10/11/16 TIME: 13:09 Assessment/Plan Lines/Catheters IV Catheter Type (from [facility]): Peripheral IV Scott in Place (from [facility]): No Assessment/Plan Assessment/Plan [facility] Progress Note Date of Service: 10/11/16 Today's Impression & Plan: Overall stable and continuing to improve. WBC normal today. Partial small bowel obstruction that is resolving with possible slight pancreatitis. No indication for acute surgical intervention and no obvious surgical etiology for symptoms. I discussed all of the above at length with the patient and her sister and answered all of their questions. With above assessment, I recommended the followin. Keep inhouse 2. Cont treatment for UTI and antimicrobial coverage (much appreciate Dr. Conteh 's excellent care) 3. Cont IV fluids 4. Symptom control 5. Strict I's and O's 6. Bowel regimen from below only 7. Advance diet to regular after EGD 8. Follow up with GIs recommendations (much appreciated Dr. Harrison's excellent input) 9. Labs in am including amylase 10. D/c planning 11. Will consider prophylactic lap ten as an outpatient Thank you again for allowing us to participate in the care of this very pleasant lady and her wonderful family. If there are any questions, please feel free to call me at [phone]. Updated Clinical Summary: The patient is a very pleasant 49-year-old young lady with symptomatic polycystic kidney and liver disease with abdominal pain and decreased oral intake. Status post laparoscopic cyst unroofing (multiple) 09/24/2015 as an outpatient. Readmission to [facility] for partial SBO September 2016. Possible UTI, and later in the hospitalization, slight elevation in amylase and lipase. Comorbidities: 1. BMI 29.5 2. Polycystic kidney and liver disease discovered in the summer of 2013 3. S/p laparoscopic cyst unroofing (multiple) 09/24/2015 as an outpatient at [facility] through [facility] 4. S/p partial hysterectomy in 2010 Subjective: No major events or complaints and feels overall improved with one bowel movement. No sig abd pain and under adequate control with medications; - n/v; + d; no sob or cp; + flatus; + BM; + activity. Objective: Vitals: See below Exam: GENERAL: On exam, the patient was laying in bed and appeared to be comfortable and in no acute distress. ABDOMEN: Soft, non-tender and non-distended. There are no peritoneal signs or guarding. SKIN: Skin appears to be pink and feels warm to touch. NEUROLOGIC: Patient is awake, alert, and follows commands appropriately. Exam/Review of Systems Vital Signs Vitals Vital Signs Date Time Temp Pulse Resp B/P Pulse Ox O2 Delivery O2 Flow Rate FiO2 10/11/16 12:34 72 18 110/75 98 Room Air 10/11/16 07:57 98.7 Intake and Output 10/10/16 10/10/16 10/11/16 15:00 23:00 07:00 Intake Total 700 ml 500 ml 450 ml Balance 700 ml 500 ml 450 ml Results Result Diagram: 10/11/16 0531 10/11/16 0531 HEMAL EMERY M.D. Oct 11, 2016 13:12
[2016-10-11] MEDS: POTASSIUM CHLORIDE (SR) 20 MEQ TAB PO STA ×2 (20:28→20:40)
[2016-10-11 20:42] VITALS: BP 126/78; RESP 18
--- NOTE | 2016-10-11 23:07 | PN ---
Date/Time of Note Date/Time of Note DATE: 10/11/16 TIME: 23:06 Assessment/Plan VTE Prophylaxis VTE Prophylaxis Intervention: other Lines/Catheters IV Catheter Type (from Nrs): Peripheral IV Urinary Cath still in place: No Assessment/Plan Chief Complaint/Hosp Course A/P ABD PAIN better ILEUS BETTER PKD LIVER CYSTS SEPSIS LEUCOCYTOSIS BETTER s/p egd pancreatitis PLAN PER SURGERY AND ID and gi kcl Problems: Subjective 24 Hr Interval Summary Cardiovascular: no complaints Gastrointestinal: no complaints Exam/Review of Systems Vital Signs Vitals Vital Signs Date Time Temp Pulse Resp B/P Pulse Ox O2 Delivery O2 Flow Rate FiO2 10/11/16 20:42 98.2 84 18 126/78 99 10/11/16 13:12 Room Air Intake and Output 10/10/16 10/10/16 10/11/16 15:00 23:00 07:00 Intake Total 700 ml 500 ml 450 ml Balance 700 ml 500 ml 450 ml Exam Respiratory: clear to auscultation Cardiovascular: regular rate and rhythm Gastrointestinal: bowel sounds (+), soft Results Result Diagram: 10/11/16 0531 10/11/16 0531 Results 24 hrs Laboratory Tests Test 10/11/16 05:31 White Blood Count 6.0 # Red Blood Count 3.41 L Hemoglobin 10.7 L Hematocrit 31.7 L Mean Corpuscular Volume 93.0 Mean Corpuscular Hemoglobin 31.4 Mean Corpuscular Hemoglobin Concent 33.8 Red Cell Distribution Width 11.9 Platelet Count 212 # Mean Platelet Volume 10.4 Neutrophils % 59.3 Lymphocytes % 23.7 Monocytes % 14.0 H Eosinophils % 2.0 Basophils % 0.2 Nucleated Red Blood Cells % 0.0 Neutrophils # 3.6 Lymphocytes # 1.4 Monocytes # 0.8 Eosinophils # 0.1 Basophils # 0.0 Nucleated Red Blood Cells # 0.0 Prothrombin Time 15.4 H Prothrombin Time Ratio 1.2 INR International Normalized Ratio 1.21 Activated Partial Thromboplast Time 27.5 Sodium Level 139 Potassium Level 3.4 L Chloride Level 102 Carbon Dioxide Level 30 Anion Gap 10 # Blood Urea Nitrogen 28 #H Creatinine 0.85 Glucose Level 105 Calcium Level 8.5 Phosphorus Level 2.5 Magnesium Level 2.3 Total Bilirubin 0.7 Direct Bilirubin 0.00 Indirect Bilirubin 0.7 Aspartate Amino Transf (AST/SGOT) 18 Alanine Aminotransferase (ALT/SGPT) 24 Alkaline Phosphatase 55 Total Protein 6.3 # Albumin 3.4 # Globulin 2.90 Albumin/Globulin Ratio 1.17 Amylase Level 209 H Lipase 997 H Medications Medications Current Medications Dextrose/Sodium Chloride (D5-1/2ns) 1,000 ml @ 100 mls/hr Q10H IV Last administered on 10/11/16 20:54; Admin Dose 100 MLS/HR; Start 10/05/16 at 19:38 Ondansetron HCl (Zofran Inj) 4 mg Q6H PRN IV NAUSEA AND/OR VOMITING Last administered on 10/08/16 03:37; Admin Dose 4 MG; Start 10/05/16 at 20:00 Acetaminophen (Tylenol Tab) 650 mg Q6H PRN PO PAIN LEVEL 1-3 OR FEVER; Start at 20:00 Acetaminophen (Tylenol Supp) 650 mg Q6H PRN [place] PAIN LEVEL 1-3 OR FEVER; Start 10/05/16 at 20:00 Acetaminophen/ Hydrocodone Bitart ([place] (5/325)) 1 tab Q6H PRN PO MODERATE PAIN LEVEL 4-6; Start 10/05/16 at 20:00 Magnesium Hydroxide (Milk Of Mag) 30 ml DAILY PRN PO CONSTIPATION; Start at 20:00 Bisacodyl (Dulcolax) 5 mg DAILY PRN PO CONSTIPATION; Start 10/05/16 at 20:00 Zolpidem Tartrate (Ambien) 5 mg QHS PRN PO SLEEP; Start 10/05/16 at 20:00 Pantoprazole (Protonix Iv) 40 mg DAILY IV Last administered on 10/08/16 08:33 ; Admin Dose 40 MG; Start 10/06/16 at 09:00 Morphine Sulfate (morphine) 3 mg Q3 PRN IV SEVERE PAIN LEVEL 7-10 Last administered on 10/06/16 22:46; Admin Dose 3 MG; Start 10/06/16 at 00:00 Tramadol HCl (Ultram) 50 mg Q6H PRN PO PAIN Last administered on 10/06/16 06: 29; Admin Dose 50 MG; Start 10/06/16 at 06:30 Metoclopramide HCl (Reglan) 5 mg Q6H PRN IV NAUSEA; Start 10/06/16 at 10:00 Promethazine HCl (Phenadoz) 25 mg Q6H PRN [place] NAUSEA; Start 10/06/16 at 10:00 Bisacodyl (Dulcolax Supp) 10 mg BID PRN [place] CONSTIPATION; Start 10/09/16 at 20: 30 Sodium Biphosphate/ Sodium Phosphate (Fleet Enema) 133 ml BID PRN [place] CONSTIPATION; Start 10/09/16 at 20:30 Docusate Sodium (Colace) 100 mg BID PRN PO CONSTIPATION; Start 10/09/16 at 20: 30 MARIANNE MONTELONGO MD Oct 11, 2016 23:07
[2016-10-11] MEDS: morphine 4 MG/ML VIAL IV PRN (23:18)
[2016-10-12] MEDS: DEXTROSE 5%-0.45% NACL 1,000 ML IV SCH ×3 (03:36→23:11)
[2016-10-12 05:15] LABS: ADD SCAN DIFF NO; BASOPHILS % 0.3 % (0.0-2.0); EOSINOPHILS # 0.2 10^3/ul (0.0-0.5); HEMATOCRIT 31.5 % (37.0-47.0); HEMOGLOBIN 10.2 g/dl (12.0-16.0); LYMPHOCYTES # 1.4 10^3/ul (0.8-2.9); LYMPHOCYTES % 21.5 % (15.0-51.0); MEAN CORPUSCULAR HGB CONC 32.4 g/dl (32.0-37.0); MEAN CORPUSCULAR VOLUME 92.6 fl (82.0-101.0); MONOCYTES % 16.6 % (0.0-11.0); NEUTROPHIL # 3.6 10^3/ul (1.6-7.5); NEUTROPHILS % 57.2 % (39.0-77.0); PLATELET COUNT 210 10^3/UL (140-415); RED CELL DISTRIBUTION WIDTH 11.7 % (11.5-14.5); WHITE BLOOD COUNT 6.3 10^3/ul (4.8-10.8)
[2016-10-12 05:48] LABS: CALCIUM 8.3 mg/dl (8.4-10.2); CREATININE 0.77 mg/dl (0.44-1.00); POTASSIUM 3.6 mmol/L (3.5-5.1)
[2016-10-12 08:00] VITALS: BP 131/77; RESP 18
--- NOTE | 2016-10-12 09:28 | PN ---
Date/Time of Note Date/Time of Note DATE: 10/12/16 TIME: 09:21 Assessment/Plan Lines/Catheters IV Catheter Type (from [facility]): Peripheral IV Scott in Place (from [facility]): No Assessment/Plan Assessment/Plan [facility] Progress Note Date of Service: 10/12/16 Today's Impression & Plan: Overall stable and continuing to improve. WBC normal. Partial small bowel obstruction that is resolving with possible slight pancreatitis that seems to be improving. No indication for acute surgical intervention and no obvious surgical etiology for symptoms. I discussed all of the above at length with the patient and answered all of her questions. With above assessment, I recommended the followin. Keep inhouse 2. Cont treatment for UTI and antimicrobial coverage (much appreciate Dr. Conteh 's excellent care) with targeted wean 3. Saline lock IV 4. Symptom control 5. Strict I's and O's 6. Cont bowel regimen 7. Low fat regular diet 8. Follow up with GIs recommendations (much appreciated Dr. Harrison's excellent input) 9. Labs in am including amylase 10. D/c planning 11. Will consider prophylactic lap ten as an outpatient Thank you again for allowing us to participate in the care of this very pleasant lady and her wonderful family. If there are any questions, please feel free to call me at [phone]. Updated Clinical Summary: The patient is a very pleasant 49-year-old young lady with symptomatic polycystic kidney and liver disease with abdominal pain and decreased oral intake. Status post laparoscopic cyst unroofing (multiple) 09/24/2015 as an outpatient. Readmission to [facility] for partial SBO September 2016. Possible UTI, and later in the hospitalization, slight elevation in amylase and lipase. S/p EGD at [facility] by Dr. Harrison: Erosive gastritis, sub-endothelial 2 cm lesion in the duodenal bulb, normal duodenum, normal Z line at 38 cm, normal esophagus. Comorbidities: 1. BMI 29.5 2. Polycystic kidney and liver disease discovered in the summer of 2013 3. S/p laparoscopic cyst unroofing (multiple) 09/24/2015 as an outpatient at [facility] through [facility] 4. S/p partial hysterectomy in 2010 5. S/p EGD at [facility] by Dr. Harrison ( Erosive gastritis, sub-endothelial 2 cm lesion in the duodenal bulb, normal duodenum, normal Z line at 38 cm, normal esophagus) 6. Erosive gastritis 7. Sub-endothelial 2 cm lesion in the duodenal bulb Subjective: No major events or complaints and feels overall improved. No sig abd pain and under adequate control with medications, but did require one shot IV last night and still has discomfort; - n/v/d; no sob or cp; + flatus; + BM; + activity. Objective: Vitals: See below Exam: GENERAL: On exam, the patient was laying in bed and appeared to be comfortable and in no acute distress. ABDOMEN: Soft, minimally tender and minimally distended. There are no peritoneal signs or guarding. SKIN: Skin appears to be pink and feels warm to touch. NEUROLOGIC: Patient is awake, alert, and follows commands appropriately. Exam/Review of Systems Vital Signs Vitals Vital Signs Date Time Temp Pulse Resp B/P Pulse Ox O2 Delivery O2 Flow Rate FiO2 10/12/16 08:00 98.6 72 18 131/77 96 10/11/16 13:12 Room Air Intake and Output 10/11/16 10/11/16 10/12/16 15:00 23:00 07:00 Intake Total 400 ml 2150 ml Balance 400 ml 2150 ml Results Result Diagram: 10/12/16 0440 10/12/16 0440 HEMAL EMERY M.D. Oct 12, 2016 09:28
[2016-10-12] MEDS: PANTOPRAZOLE 40 MG INJ IV SCH (10:25)
--- NOTE | 2016-10-12 13:50 | CONS ---
Date/Time of Note Date/Time of Note DATE: 10/12/16 TIME: 13:48 Assessment/Plan Assessment/Plan Chief Complaint/Hosp Course SUBJECTIVE: Alert, feels good, no nausea vomiting diarrhea, no fevers PHYSICAL EXAMINATION: GENERAL: This is a well-developed middle-aged -[place] woman who is alert, in no distress. HEENT: Head atraumatic, normocephalic. Sclerae anicteric. Buccal mucosa pink. NECK: Supple. CHEST: Rise symmetrical. Breath sounds clear. HEART: S1, S2. ABDOMEN: Distended with diffuse pain on palpation. EXTREMITIES: Without cyanosis. ASSESSMENT: 1. Systemic inflammatory response syndrome -resolved 2. Status post nausea, vomiting and abdominal pain, possible partial small bowel obstruction 3. Polycystic kidney disease. 4. Erosive gastritis per EGD PLAN: Doing better, white blood cell count normalized, tolerates p.o., observe off antibiotics. Follow surgical and gastroenterology recommendations. DW patient Problems: Consultation Date/Type/Reason Admit Date/Time Oct 05, 2016 at 17:18 Type of Consultation: ID Exam/Review of Systems Vital Signs Vitals Vital Signs Date Time Temp Pulse Resp B/P Pulse Ox O2 Delivery O2 Flow Rate FiO2 10/12/16 08:00 98.6 72 18 131/77 96 10/11/16 13:12 Room Air Intake and Output 10/11/16 10/11/16 10/12/16 15:00 23:00 07:00 Intake Total 400 ml 2150 ml Balance 400 ml 2150 ml Results Result Diagram: 10/12/16 0440 10/12/16 0440 Results 24 hrs Laboratory Tests Test 10/12/16 04:40 White Blood Count 6.3 Red Blood Count 3.40 L Hemoglobin 10.2 L Hematocrit 31.5 L Mean Corpuscular Volume 92.6 Mean Corpuscular Hemoglobin 30.0 Mean Corpuscular Hemoglobin Concent 32.4 Red Cell Distribution Width 11.7 Platelet Count 210 Mean Platelet Volume 10.0 Neutrophils % 57.2 Lymphocytes % 21.5 Monocytes % 16.6 H Eosinophils % 3.0 Basophils % 0.3 Nucleated Red Blood Cells % 0.0 Neutrophils # 3.6 Lymphocytes # 1.4 Monocytes # 1.0 H Eosinophils # 0.2 Basophils # 0.0 Nucleated Red Blood Cells # 0.0 Sodium Level 136 Potassium Level 3.6 Chloride Level 103 Carbon Dioxide Level 28 Anion Gap 9 Blood Urea Nitrogen 20 Creatinine 0.77 Glucose Level 113 Calcium Level 8.3 L Amylase Level 167 H Lipase 700 H Medications Medications Current Medications Dextrose/Sodium Chloride (D5-1/2ns) 1,000 ml @ 100 mls/hr Q10H IV Last administered on 10/12/16 03:36; Admin Dose 100 MLS/HR; Start 10/05/16 at 19:38 Ondansetron HCl (Zofran Inj) 4 mg Q6H PRN IV NAUSEA AND/OR VOMITING Last administered on 10/08/16 03:37; Admin Dose 4 MG; Start 10/05/16 at 20:00 Acetaminophen (Tylenol Tab) 650 mg Q6H PRN PO PAIN LEVEL 1-3 OR FEVER; Start at 20:00 Acetaminophen (Tylenol Supp) 650 mg Q6H PRN [place] PAIN LEVEL 1-3 OR FEVER; Start 10/05/16 at 20:00 Acetaminophen/ Hydrocodone Bitart ([place] (5/325)) 1 tab Q6H PRN PO MODERATE PAIN LEVEL 4-6; Start 10/05/16 at 20:00 Magnesium Hydroxide (Milk Of Mag) 30 ml DAILY PRN PO CONSTIPATION; Start at 20:00 Bisacodyl (Dulcolax) 5 mg DAILY PRN PO CONSTIPATION; Start 10/05/16 at 20:00 Zolpidem Tartrate (Ambien) 5 mg QHS PRN PO SLEEP; Start 10/05/16 at 20:00 Pantoprazole (Protonix Iv) 40 mg DAILY IV Last administered on 10/12/16 10:25 ; Admin Dose 40 MG; Start 10/06/16 at 09:00 Morphine Sulfate (morphine) 3 mg Q3 PRN IV SEVERE PAIN LEVEL 7-10 Last administered on 10/11/16 23:18; Admin Dose 3 MG; Start 10/06/16 at 00:00 Tramadol HCl (Ultram) 50 mg Q6H PRN PO PAIN Last administered on 10/06/16 06: 29; Admin Dose 50 MG; Start 10/06/16 at 06:30 Metoclopramide HCl (Reglan) 5 mg Q6H PRN IV NAUSEA; Start 10/06/16 at 10:00 Promethazine HCl (Phenadoz) 25 mg Q6H PRN NV NAUSEA; Start 10/06/16 at 10:00 Bisacodyl (Dulcolax Supp) 10 mg BID PRN NV CONSTIPATION; Start 10/09/16 at 20: 30 Sodium Biphosphate/ Sodium Phosphate (Fleet Enema) 133 ml BID PRN NV CONSTIPATION; Start 10/09/16 at 20:30 Docusate Sodium (Colace) 100 mg BID PRN PO CONSTIPATION; Start 10/09/16 at 20: 30 NAFISA MOLINA NP Oct 12, 2016 13:50
--- NOTE | 2016-10-12 18:19 | CONS ---
Date/Time of Note Date/Time of Note DATE: 10/12/16 TIME: 18:18 Assessment/Plan Assessment/Plan Chief Complaint/Hosp Course Patient admitted with a complaint of abdominal pain nausea and vomiting. Problems: Additional Assessment/Plan Additional Assessment/Plan 1. Abdominal pain nausea and vomiting rule out peptic ulcer disease rule out gastritis based on KUB report there is no evidence of bowel obstruction 2. Polycystic kidney disease. 3. UTI 4. Gastritis Plan Continue PPI Continue antibiotics May need anti-spasmodic medication for the pain Consultation Date/Type/Reason Admit Date/Time Oct 05, 2016 at 17:18 Initial Consult Date Type of Consultation: ID [id number] HR Interval Summary Free Text/Dictation Persistent abdominal pain No nausea or vomiting Exam/Review of Systems Vital Signs Vitals Vital Signs Date Time Temp Pulse Resp B/P Pulse Ox O2 Delivery O2 Flow Rate FiO2 10/12/16 08:00 98.6 72 18 131/77 96 10/11/16 13:12 Room Air Intake and Output 10/11/16 10/11/16 10/12/16 15:00 23:00 07:00 Intake Total 400 ml 2150 ml Balance 400 ml 2150 ml Exam Constitutional: alert, oriented, well developed Psych: nl mood/affect, no complaints Head: atraumatic, normocephalic Eyes: EOMI, PERRL, nl conjunctiva, nl lids, nl sclera ENMT: nl external ears & nose, nl lips & teeth, nl nasal mucosa & septum Neck: non-tender, supple Respiratory: clear to auscultation, normal air movement Cardiovascular: nl pulses, regular rate and rhythm Gastrointestinal: nl liver, spleen, non-tender, soft Musculoskeletal: nl extremities to inspection, nl gait and stance Extremities: normal pulses Neurological: [employer] II-XII intact, nl mental status, nl speech, nl strength Skin: nl turgor, No rash or lesions Lymph: nl lymph nodes Results Result Diagram: 10/12/16 0440 10/12/16 0440 Results 24 hrs Laboratory Tests Test 10/12/16 04:40 White Blood Count 6.3 Red Blood Count 3.40 L Hemoglobin 10.2 L Hematocrit 31.5 L Mean Corpuscular Volume 92.6 Mean Corpuscular Hemoglobin 30.0 Mean Corpuscular Hemoglobin Concent 32.4 Red Cell Distribution Width 11.7 Platelet Count 210 Mean Platelet Volume 10.0 Neutrophils % 57.2 Lymphocytes % 21.5 Monocytes % 16.6 H Eosinophils % 3.0 Basophils % 0.3 Nucleated Red Blood Cells % 0.0 Neutrophils # 3.6 Lymphocytes # 1.4 Monocytes # 1.0 H Eosinophils # 0.2 Basophils # 0.0 Nucleated Red Blood Cells # 0.0 Sodium Level 136 Potassium Level 3.6 Chloride Level 103 Carbon Dioxide Level 28 Anion Gap 9 Blood Urea Nitrogen 20 Creatinine 0.77 Glucose Level 113 Calcium Level 8.3 L Amylase Level 167 H Lipase 700 H Medications Medications Current Medications Dextrose/Sodium Chloride (D5-1/2ns) 1,000 ml @ 100 mls/hr Q10H IV Last administered on 10/12/16 03:36; Admin Dose 100 MLS/HR; Start 10/05/16 at 19:38 Ondansetron HCl (Zofran Inj) 4 mg Q6H PRN IV NAUSEA AND/OR VOMITING Last administered on 10/08/16 03:37; Admin Dose 4 MG; Start 10/05/16 at 20:00 Acetaminophen (Tylenol Tab) 650 mg Q6H PRN PO PAIN LEVEL 1-3 OR FEVER; Start at 20:00 Acetaminophen (Tylenol Supp) 650 mg Q6H PRN [place] PAIN LEVEL 1-3 OR FEVER; Start 10/05/16 at 20:00 Acetaminophen/ Hydrocodone Bitart ([place] (5/325)) 1 tab Q6H PRN PO MODERATE PAIN LEVEL 4-6; Start 10/05/16 at 20:00 Magnesium Hydroxide (Milk Of Mag) 30 ml DAILY PRN PO CONSTIPATION; Start at 20:00 Bisacodyl (Dulcolax) 5 mg DAILY PRN PO CONSTIPATION; Start 10/05/16 at 20:00 Zolpidem Tartrate (Ambien) 5 mg QHS PRN PO SLEEP; Start 10/05/16 at 20:00 Pantoprazole (Protonix Iv) 40 mg DAILY IV Last administered on 10/12/16 10:25 ; Admin Dose 40 MG; Start 10/06/16 at 09:00 Morphine Sulfate (morphine) 3 mg Q3 PRN IV SEVERE PAIN LEVEL 7-10 Last administered on 10/11/16 23:18; Admin Dose 3 MG; Start 10/06/16 at 00:00 Tramadol HCl (Ultram) 50 mg Q6H PRN PO PAIN Last administered on 10/06/16t 06: 29; Admin Dose 50 MG; Start 10/06/16 at 06:30 Metoclopramide HCl (Reglan) 5 mg Q6H PRN IV NAUSEA; Start 10/06/16 at 10:00 Promethazine HCl (Phenadoz) 25 mg Q6H PRN NM NAUSEA; Start 10/06/16 at 10:00 Bisacodyl (Dulcolax Supp) 10 mg BID PRN NM CONSTIPATION; Start 10/09/16 at 20: 30 Sodium Biphosphate/ Sodium Phosphate (Fleet Enema) 133 ml BID PRN NM CONSTIPATION; Start 10/09/16 at 20:30 Docusate Sodium (Colace) 100 mg BID PRN PO CONSTIPATION; Start 10/09/16 at 20: 30 OBED SEARS MD Oct 12, 2016 18:19
--- NOTE | 2016-10-12 21:27 | PN ---
Date/Time of Note Date/Time of Note DATE: 10/12/16 TIME: 21:26 Assessment/Plan VTE Prophylaxis VTE Prophylaxis Intervention: other Lines/Catheters IV Catheter Type (from Nrs): Peripheral IV Urinary Cath still in place: No Assessment/Plan Chief Complaint/Hosp Course A/P ABD PAIN better ILEUS BETTER PKD LIVER CYSTS SEPSIS LEUCOCYTOSIS BETTER s/p egd pancreatitis PLAN PER SURGERY AND ID and gi CK LABS Problems: Subjective 24 Hr Interval Summary Cardiovascular: no complaints Gastrointestinal: No pain, No vomiting Exam/Review of Systems Vital Signs Vitals Vital Signs Date Time Temp Pulse Resp B/P Pulse Ox O2 Delivery O2 Flow Rate FiO2 10/12/16 08:00 98.6 72 18 131/77 96 10/11/16 13:12 Room Air Intake and Output 10/11/16 10/11/16 10/12/16 15:00 23:00 07:00 Intake Total 400 ml 2150 ml Balance 400 ml 2150 ml Exam Neck: supple Respiratory: clear to auscultation Cardiovascular: regular rate and rhythm Gastrointestinal: soft Musculoskeletal: nl extremities to inspection Extremities: normal pulses Results Result Diagram: 10/12/16 0440 10/12/16 0440 Results 24 hrs Laboratory Tests Test 10/12/16 04:40 White Blood Count 6.3 Red Blood Count 3.40 L Hemoglobin 10.2 L Hematocrit 31.5 L Mean Corpuscular Volume 92.6 Mean Corpuscular Hemoglobin 30.0 Mean Corpuscular Hemoglobin Concent 32.4 Red Cell Distribution Width 11.7 Platelet Count 210 Mean Platelet Volume 10.0 Neutrophils % 57.2 Lymphocytes % 21.5 Monocytes % 16.6 H Eosinophils % 3.0 Basophils % 0.3 Nucleated Red Blood Cells % 0.0 Neutrophils # 3.6 Lymphocytes # 1.4 Monocytes # 1.0 H Eosinophils # 0.2 Basophils # 0.0 Nucleated Red Blood Cells # 0.0 Sodium Level 136 Potassium Level 3.6 Chloride Level 103 Carbon Dioxide Level 28 Anion Gap 9 Blood Urea Nitrogen 20 Creatinine 0.77 Glucose Level 113 Calcium Level 8.3 L Amylase Level 167 H Lipase 700 H Medications Medications Current Medications Dextrose/Sodium Chloride (D5-1/2ns) 1,000 ml @ 100 mls/hr Q10H IV Last administered on 10/12/16t 03:36; Admin Dose 100 MLS/HR; Start 10/05/16 at 19:38 Ondansetron HCl (Zofran Inj) 4 mg Q6H PRN IV NAUSEA AND/OR VOMITING Last administered on 10/08/16 03:37; Admin Dose 4 MG; Start 10/05/16 at 20:00 Acetaminophen (Tylenol Tab) 650 mg Q6H PRN PO PAIN LEVEL 1-3 OR FEVER; Start at 20:00 Acetaminophen (Tylenol Supp) 650 mg Q6H PRN IN PAIN LEVEL 1-3 OR FEVER; Start 10/05/16 at 20:00 Acetaminophen/ Hydrocodone Bitart ([place] (5/325)) 1 tab Q6H PRN PO MODERATE PAIN LEVEL 4-6; Start 10/05/16 at 20:00 Magnesium Hydroxide (Milk Of Mag) 30 ml DAILY PRN PO CONSTIPATION; Start at 20:00 Bisacodyl (Dulcolax) 5 mg DAILY PRN PO CONSTIPATION; Start 10/05/16 at 20:00 Zolpidem Tartrate (Ambien) 5 mg QHS PRN PO SLEEP; Start 10/05/16 at 20:00 Pantoprazole (Protonix Iv) 40 mg DAILY IV Last administered on 10/12/16 10:25 ; Admin Dose 40 MG; Start 10/06/16 at 09:00 Morphine Sulfate (morphine) 3 mg Q3 PRN IV SEVERE PAIN LEVEL 7-10 Last administered on 10/11/16 23:18; Admin Dose 3 MG; Start 10/06/16 at 00:00 Tramadol HCl (Ultram) 50 mg Q6H PRN PO PAIN Last administered on 10/06/16 06: 29; Admin Dose 50 MG; Start 10/06/16 at 06:30 Metoclopramide HCl (Reglan) 5 mg Q6H PRN IV NAUSEA; Start 10/06/16 at 10:00 Promethazine HCl (Phenadoz) 25 mg Q6H PRN IN NAUSEA; Start 10/06/16 at 10:00 Bisacodyl (Dulcolax Supp) 10 mg BID PRN IN CONSTIPATION; Start 10/09/16 at 20: 30 Sodium Biphosphate/ Sodium Phosphate (Fleet Enema) 133 ml BID PRN IN CONSTIPATION; Start 10/09/16 at 20:30 Docusate Sodium (Colace) 100 mg BID PRN PO CONSTIPATION; Start 10/09/16 at 20: 30 MARIANNE MONTELONGO MD Oct 12, 2016 21:27
[2016-10-12] MEDS: morphine 4 MG/ML VIAL IV PRN (21:58)
[2016-10-12 22:53] VITALS: BP 132/80; RESP 18
[2016-10-13] MEDS: DEXTROSE 5%-0.45% NACL 1,000 ML IV SCH (04:44)
[2016-10-13 06:19] LABS: BASOPHILS % 0.3 % (0.0-2.0); EOSINOPHILS # 0.2 10^3/ul (0.0-0.5); EOSINOPHILS % 2.8 % (0.0-7.0); HEMATOCRIT 30.7 % (37.0-47.0); HEMOGLOBIN 10.4 g/dl (12.0-16.0); LYMPHOCYTES # 1.2 10^3/ul (0.8-2.9); LYMPHOCYTES % 18.3 % (15.0-51.0); MEAN CORPUSCULAR HGB CONC 33.9 g/dl (32.0-37.0); MEAN CORPUSCULAR VOLUME 91.4 fl (82.0-101.0); MONOCYTES % 15.1 % (0.0-11.0); NEUTROPHILS % 62.1 % (39.0-77.0); PLATELET COUNT 222 10^3/UL (140-415); RED BLOOD COUNT 3.36 10^6/ul (4.20-5.40); RED CELL DISTRIBUTION WIDTH 11.6 % (11.5-14.5); WHITE BLOOD COUNT 6.4 10^3/ul (4.8-10.8)
[2016-10-13 06:32] LABS: INR 1.25; PROTIME 15.8 Sec (12.2-14.2); PT RATIO 1.2
[2016-10-13 06:33] LABS: PARTIAL THROMBOPLASTIN TIME 29.2 Sec (25.0-35.0)
[2016-10-13 07:01] LABS: ALBUMIN 3.2 g/dl (3.3-4.9); ALBUMIN/GLOBULIN RATIO 1.33; BILIRUBIN,INDIRECT 0.7 mg/dl (0-1.1); BILIRUBIN,TOTAL 0.7 mg/dl (0.2-1.3); CALCIUM 8.4 mg/dl (8.4-10.2); CREATININE 0.8 mg/dl (0.44-1.00); MAGNESIUM 1.8 mg/dl (1.7-2.5); POTASSIUM 3.7 mmol/L (3.5-5.1); TOTAL PROTEIN 5.6 g/dl (6.1-8.1)
[2016-10-13 07:17] LABS: ADD SCAN DIFF NO
[2016-10-13] MEDS: PANTOPRAZOLE 40 MG INJ IV SCH (08:40)
[2016-10-13 08:49] VITALS: BP 135/70; RESP 18
--- NOTE | 2016-10-13 12:39 | PDOCDIS ---
Discharge Instructions CONDITION Patient Condition: Good HOME CARE INSTRUCTIONS: Diet Instructions: RegularSpecial Diet: Regular ACTIVITY: Activity Restrictions: Slowly Increase Activity Bathing Restrictions: Shower FOLLOW UP/APPOINTMENTS Follow-up Plan 1 week PCP SCHOOL/WORK RELEASE May return to School/Work with: No Restrictions MARCO DEL CID Oct 13, 2016 12:39
--- NOTE | 2016-10-13 12:49 | PN ---
Date/Time of Note Date/Time of Note DATE: 10/13/16 TIME: 12:46 Assessment/Plan VTE Prophylaxis VTE Prophylaxis Intervention: ambulation Lines/Catheters IV [facility] Type [facility]from [facility] Saline Lock Urinary Cath still in place: No Assessment/Plan Chief Complaint/Hosp Course 1 The patient has urinary tract infection wit SIRS 2. Polycystic kidney and liver disease. Problems: Assessment/Plan 1. D/c home Subjective 24 Hr Interval Summary Constitutional: improved, no complaints Exam/Review of Systems Vital Signs Vitals Vital Signs Date Time Temp Pulse Resp B/P Pulse Ox O2 Delivery O2 Flow Rate FiO2 10/13/16 08:49 98.3 85 18 135/70 99 10/11/16 13:12 Room Air Intake and Output 10/12/16 10/12/16 10/13/16 15:00 23:00 07:00 Intake Total 300 ml 740 ml Balance 300 ml 740 ml Exam Constitutional: alert, oriented Head: atraumatic, normocephalic Neck: supple Respiratory: clear to auscultation Cardiovascular: regular rate and rhythm Gastrointestinal: soft Results Result Diagram: 10/13/16 0445 10/13/16 0535 Results 24 hrs Laboratory Tests Test 10/13/16 04:45 10/13/16 05:35 White Blood Count 6.4 Red Blood Count 3.36 L Hemoglobin 10.4 L Hematocrit 30.7 L Mean Corpuscular Volume 91.4 Mean Corpuscular Hemoglobin 31.0 Mean Corpuscular Hemoglobin Concent 33.9 Red Cell Distribution Width 11.6 Platelet Count 222 Mean Platelet Volume 10.0 Neutrophils % 62.1 Lymphocytes % 18.3 Monocytes % 15.1 H Eosinophils % 2.8 Basophils % 0.3 Nucleated Red Blood Cells % 0.0 Neutrophils # 4.0 Lymphocytes # 1.2 Monocytes # 1.0 H Eosinophils # 0.2 Basophils # 0.0 Nucleated Red Blood Cells # 0.0 Prothrombin Time 15.8 H Prothrombin Time Ratio 1.2 INR International Normalized Ratio 1.25 Activated Partial Thromboplast Time 29.2 Sodium Level 135 Potassium Level 3.7 Chloride Level 100 Carbon Dioxide Level 30 Anion Gap 9 Blood Urea Nitrogen 18 Creatinine 0.80 Glucose Level 87 Calcium Level 8.4 Phosphorus Level 3.0 Magnesium Level 1.8 Total Bilirubin 0.7 Direct Bilirubin 0.00 Indirect Bilirubin 0.7 Aspartate Amino Transf (AST/SGOT) 13 L Alanine Aminotransferase (ALT/SGPT) 25 Alkaline Phosphatase 51 Total Protein 5.6 L Albumin 3.2 L Globulin 2.40 Albumin/Globulin Ratio 1.33 Amylase Level 114 Lipase 630 H Medications Medications Current Medications Dextrose/Sodium Chloride (D5-1/2ns) 1,000 ml @ 100 mls/hr Q10H IV Last administered on 10/12/16 23:11; Admin Dose 100 MLS/HR; Start 10/05/16 at 19:38 Ondansetron HCl (Zofran Inj) 4 mg Q6H PRN IV NAUSEA AND/OR VOMITING Last administered on 10/08/16 03:37; Admin Dose 4 MG; Start 10/05/16 at 20:00 Acetaminophen (Tylenol Tab) 650 mg Q6H PRN PO PAIN LEVEL 1-3 OR FEVER; Start at 20:00 Acetaminophen (Tylenol Supp) 650 mg Q6H PRN NV PAIN LEVEL 1-3 OR FEVER; Start 10/05/16 at 20:00 Acetaminophen/ Hydrocodone Bitart ([place] (5/325)) 1 tab Q6H PRN PO MODERATE PAIN LEVEL 4-6; Start 10/05/16 at 20:00 Magnesium Hydroxide (Milk Of Mag) 30 ml DAILY PRN PO CONSTIPATION; Start at 20:00 Bisacodyl (Dulcolax) 5 mg DAILY PRN PO CONSTIPATION; Start 10/05/16 at 20:00 Zolpidem Tartrate (Ambien) 5 mg QHS PRN PO SLEEP; Start 10/05/16 at 20:00 Pantoprazole (Protonix Iv) 40 mg DAILY IV Last administered on 10/12/16 10:25 ; Admin Dose 40 MG; Start 10/06/16 at 09:00 Morphine Sulfate (morphine) 3 mg Q3 PRN IV SEVERE PAIN LEVEL 7-10 Last administered on 10/12/16 21:58; Admin Dose 3 MG; Start 10/06/16 at 00:00 Tramadol HCl (Ultram) 50 mg Q6H PRN PO PAIN Last administered on 10/06/16 06: 29; Admin Dose 50 MG; Start 10/06/16 at 06:30 Metoclopramide HCl (Reglan) 5 mg Q6H PRN IV NAUSEA; Start 10/06/16 at 10:00 Promethazine HCl (Phenadoz) 25 mg Q6H PRN NV NAUSEA; Start 10/06/16 at 10:00 Bisacodyl (Dulcolax Supp) 10 mg BID PRN NV CONSTIPATION; Start 10/09/16 at 20: 30 Sodium Biphosphate/ Sodium Phosphate (Fleet Enema) 133 ml BID PRN NV CONSTIPATION; Start 10/09/16 at 20:30 Docusate Sodium (Colace) 100 mg BID PRN PO CONSTIPATION; Start 10/09/16 at 20: 30 MARCO DEL CID Oct 13, 2016 12:49
--- NOTE | 2016-10-13 23:00 | PN ---
Date/Time of Note Date/Time of Note DATE: 10/13/16 TIME: 13:57 Assessment/Plan Lines/Catheters IV Catheter Type (from Nrs): Saline Lock Scott in Place (from Nrs): No Assessment/Plan Assessment/Plan [facility] Progress Note Date of Service: 10/13/16 Today's Impression & Plan: Overall stable and continuing to improve. WBC normal. Partial small bowel obstruction seems resolved with possible slight pancreatitis that seems also resolved (tolerated solid food yesterday and amylase and lipase both lower today ). No further sig abdominal pain. No indication for acute surgical intervention and no obvious surgical etiology for symptoms. Ok to d/c from my standpoint. I discussed all of the above at length with the patient and answered all of her questions. With above assessment, I recommended the followin. Ok to d/c home from my standpoint 2. F/u with me in the office in a few weeks to discuss possible prophylactic lap ten as an outpatient Thank you again for allowing us to participate in the care of this very pleasant lady and her wonderful family. If there are any questions, please feel free to call me at [phone]. Updated Clinical Summary: The patient is a very pleasant 49-year-old young lady with symptomatic polycystic kidney and liver disease with abdominal pain and decreased oral intake. Status post laparoscopic cyst unroofing (multiple) 09/24/2015 as an outpatient. Readmission to [facility] for partial SBO September 2016. Possible UTI, and later in the hospitalization, slight elevation in amylase and lipase. S/p EGD at [facility] by Dr. Harrison: Erosive gastritis, sub-endothelial 2 cm lesion in the duodenal bulb, normal duodenum, normal Z line at 38 cm, normal esophagus. Comorbidities: 1. BMI 29.5 2. Polycystic kidney and liver disease discovered in the summer of 2013 3. S/p laparoscopic cyst unroofing (multiple) 09/24/2015 as an outpatient at [facility] through [facility] 4. S/p partial hysterectomy in 2010 5. S/p EGD at [facility] by Dr. Harrison ( Erosive gastritis, sub-endothelial 2 cm lesion in the duodenal bulb, normal duodenum, normal Z line at 38 cm, normal esophagus) 6. Erosive gastritis 7. Sub-endothelial 2 cm lesion in the duodenal bulb Subjective: No major events or complaints and feels overall improved. No sig abd pain and under adequate control with medications; - n/v/d; no sob or cp; + flatus; + BM; + activity. Tolerated low fat diet yesterday and today. Objective: Vitals: See below Exam: GENERAL: On exam, the patient was laying in bed and appeared to be comfortable and in no acute distress. ABDOMEN: Soft, minimally tender and minimally distended. There are no peritoneal signs or guarding. SKIN: Skin appears to be pink and feels warm to touch. NEUROLOGIC: Patient is awake, alert, and follows commands appropriately. Exam/Review of Systems Vital Signs Vitals Vital Signs Date Time Temp Pulse Resp B/P Pulse Ox O2 Delivery O2 Flow Rate FiO2 10/13/16 08:49 98.3 85 18 135/70 99 10/11/16 13:12 Room Air Intake and Output 10/12/16 10/12/16 10/13/16 15:00 23:00 07:00 Intake Total 300 ml 740 ml Balance 300 ml 740 ml Results Result Diagram: 10/13/16 0445 10/13/16 0535 HEMAL EMERY M.D. Oct 13, 2016 23:00
--- NOTE | 2016-10-14 17:58 | DS ---
Date/Time of Note Date/Time of Note DATE: 10/14/16 TIME: 17:53 Discharge Summary Admission/Discharge Info Admit Date/Time Oct 05, 2016 at 17:18 Discharge Date/Time Oct 13, 2016 at 15:03 Discharge Diagnosis polycystic kidney disease, exacerbation Patient Condition: Serious Consults Dr Harrison and Dr Huff Procedures none Hx of Present Illness pt was admitted for abdominal pain. Small obstruction was not found. A/b was used to decrease SIRS. PAin controlled was achieved. Gastritis and abdominal pain subsided, pt was discharged home Hospital Course A/P ABD PAIN better ILEUS BETTER PKD LIVER CYSTS SEPSIS LEUCOCYTOSIS BETTER s/p egd pancreatitis PLAN PER SURGERY AND ID and gi CK LABS Home Meds No Active Prescriptions or Reported Meds Follow-up Plan Carlos Eduardo caal outpatient Primary Care Provider Not On Staff Doctor Time spent on discharge: < 30 minutes MARCO DEL CID Oct 14, 2016 17:58
== END 2016-10-13 15:03 | disposition home or self-care (01) | DRG 383 ==
LOC: E/R 14:42 → PP2 17:18
PROVIDERS: ADMIT Internal Medicine Nephrology; ATTEND Internal Medicine Nephrology
PROC: 0DB68ZX Excision of Stomach, Via Natural or Artificial Opening Endoscopic, Diagnostic (ICD-10-PCS; principal; 2016-10-11 12:00)
DX: K25.9 Gastric ulcer, unspecified as acute or chronic, without hemorrhage or perforation (principal); K85.90 Acute pancreatitis without necrosis or infection, unspecified; Q61.3 Polycystic kidney, unspecified; K76.89 Other specified diseases of liver; K56.7 Ileus, unspecified; N39.0 Urinary tract infection, site not specified; R16.0 Hepatomegaly, not elsewhere classified; K29.60 Other gastritis without bleeding; E86.0 Dehydration; D72.819 Decreased white blood cell count, unspecified; A08.4 Viral intestinal infection, unspecified; R11.2 Nausea with vomiting, unspecified
CPT/HCPCS: 36415; 71010; 74000; 74010; 74176; 76705; 80048; 80053; 81001; 82150; 83605; 83690; 83735; 84100; 84145; 84703; 85025; 85610; 85730; 87040; 87086; 88305; 88312; 96374; 96375; 96376; C9113; J0696; J0744; J1170; J1335; J2060; J2270; J2405; J3480; J7030; J7040; J7042

== ENCOUNTER 2016-10-31 19:59 | Inpatient (IN) | payer OTHER ==
[~2016-10-31] VITALS: Ht 170.2 cm; Wt 62.5 kg
[2016-10-31 20:05] VITALS: Ht 170.2 cm; Wt 62.5 kg
[2016-10-31] MEDS ORDERED: ONDANSETRON 4 MG INJ IV STA (21:01)
[2016-10-31] MEDS ORDERED: SOD CHLORIDE 0.9% 1,000 ML IV STA (21:01)
[2016-10-31] MEDS: HYDROmorphONE 1 MG/ML SYG IV STA (21:14)
[2016-10-31 21:17] LABS: ADD SCAN DIFF NO
[2016-10-31 21:22] LABS: HEMATOCRIT 34.1 % (37.0-47.0); HEMOGLOBIN 11.1 g/dl (12.0-16.0); MEAN CORPUSCULAR HGB CONC 32.6 g/dl (32.0-37.0); MEAN CORPUSCULAR VOLUME 92.2 fl (82.0-101.0); MEAN PLATELET VOLUME 9.8 fl (7.4-10.4); PLATELET COUNT 342 10^3/UL (140-415); RED CELL DISTRIBUTION WIDTH 11.8 % (11.5-14.5); WHITE BLOOD COUNT 5.9 10^3/ul (4.8-10.8)
[2016-10-31 21:40] LABS: ALBUMIN 3.8 g/dl (3.3-4.9); ALBUMIN/GLOBULIN RATIO 0.9; BILIRUBIN,INDIRECT 0.4 mg/dl (0-1.1); BILIRUBIN,TOTAL 0.4 mg/dl (0.2-1.3); CALCIUM 9.2 mg/dl (8.4-10.2); CREATININE 0.9 mg/dl (0.44-1.00); POTASSIUM 3.8 mmol/L (3.5-5.1)
[2016-10-31 21:53] LABS: EOSINOPHILS # 0.1 10^3/ul (0.0-0.5); LYMPHOCYTES # 1.1 10^3/ul (0.8-2.9); MONOCYTE # 0.4 10^3/ul (0.3-0.9); NEUTROPHIL # 4.3 10^3/ul (1.6-7.5)
[2016-10-31 21:54] LABS: PLATELET ESTIMATE PLT APPEAR ADEQUATE
[2016-10-31 22:52] VITALS: TEMP 98
--- NOTE | 2016-10-31 23:05 | RADRPT ---
PROCEDURE: CT abdomen and pelvis without contrast. CLINICAL INDICATION: Abdominal pain TECHNIQUE: CT scan of the abdomen and pelvis without contrast was performed. Sagittal and coronal reformatted images were obtained from the axial source images. CTDI = 11.31 mGy; DLP = 504.96 mGy-c m COMPARISON: CT 10/05/2016 FINDINGS: Visualized lower thorax: Left greater than right compressive atelectasis of the lower lobes is wors e. Interval development of a small to moderate left pleural effusion and a trace right pleural effu mercedes. Liver, gallbladder, pancreas and spleen: Diffuse hepatic enlargement caused by polycystic disease i s again noted. There is no evidence for a solid liver mass or ductal dilatation. The gallbladder i s unremarkable. No common bile duct abnormality is demonstrated. The pancreas is unremarkable. Th e spleen is normal in size. Adrenal glands and genitourinary system: The adrenal glands are normal bilaterally. Bilateral renal enlargement with multiple cysts consistent with polycystic kidney disease is again noted. No evide nce of hydronephrosis. Stable punctate 2 mm calculus in the lower pole left kidney is again noted ( series 3 image 78). Some proteinaceous or hemorrhagic material within some of the left renal cysts is unchanged. The ureters are unremarkable. No urinary bladder abnormality is demonstrated. Calci fication within the uterus is again seen likely a small leiomyoma with mild uterine atrophy. Gastrointestinal system: The stomach is contracted and unremarkable. Fluid-filled loops of distal small bowel are similar to the prior study possibly an adynamic ileus without evidence of complete o bstruction. There is no evidence of appendicitis. The colon shows no evidence for wall thickening o r acute abnormality. There is no evidence for colitis or diverticulitis. Peritoneum, retroperitoneum, lymph nodes and vessels: The abdominal aorta is normal in caliber. The re is trace aortic atherosclerotic calcification. The inferior vena cava is unremarkable. There is no evidence for adenopathy or mass. A small amount of pelvic ascites is slightly increased compare d to the prior examination. No pneumoperitoneum is present Osseous structures and musculoskeletal findings: There is no fracture, lytic or blastic lesion. No muscular abnormality or soft tissue pathology is present. RPTAT:HJJR IMPRESSION: 1. Mild dilatation of fluid-filled distal small bowel is similar to the study of 10/05/2016 and conc erning for ileus or enteritis pattern without complete bowel obstruction. Consider follow-up evaluat ion 2. Small amount of dependent pelvic free fluid slightly increased compared to prior exam. 3. Hepatomegaly from polycystic disease is again noted. 4. Nephromegaly from of polycystic kidney disease again seen with a stable nonobstructing 2 mm lowe r pole renal calculus and some proteinaceous or hemorrhagic material within a few of the left renal cysts. 5. Incidental calcified leiomyoma. 6. New left pleural effusion with tiny right pleural effusion and increased bibasilar atelectasis. Dong Arias Physician Date Time Electronically viewed and signed by Dong Arias Physician on 10/31/2016 23:05 /
[2016-10-31] MEDS ORDERED: SOD CHLORIDE 0.9% 1,000 ML IV SCH (23:38)
--- NOTE | 2016-10-31 23:38 | ERA ---
ER Documentation Chief Complaint Date/Time DATE: 10/31/16 TIME: 23:33 Chief Complaint upper abd pain x 3 weeks HPI This is a 51-year-old female who says that she has had some abdominal pain for 2 weeks. Says she is admitted to the hospital a few weeks ago here with which was thought to be a partial small bowel obstruction that cleared after a few hospital days stay. She says she is continuing to have some chronic pain but is not as bad. She said the past day that she has had worsening of pain in her mid and left upper abdomen with nausea vomiting she feels her abdominal cavity is distended. No diarrhea. She had a bowel movement this morning. No fever no back pain no chest pain or shortness of breath. Vomit is nonbilious and nonbloody ROS All systems reviewed and are negative except as per history of present illness. Medications Home Meds No Active Prescriptions or Reported Meds Allergies Allergies: Coded Allergies: Penicillins (Unverified Allergy, Intermediate, 10/31/16) PMhx/Soc History of Surgery: Yes (PARTIAL HYSTERECTOMY, CYST REMOVAL FROM LIVER) Anesthesia Reaction: No Hx Neurological Disorder: No Hx Respiratory Disorders: No Hx Cardiac Disorders: No Hx Psychiatric Problems: No Hx Miscellaneous Medical Probl: Yes (polycystic liver and kidney ds) Hx Alcohol Use: No Hx Substance Use: No Hx Tobacco Use: No Smoking Status: Never smoker FmHx Family History: No coronary disease Physical Exam Vitals Vital Signs Date Time Temp Pulse Resp B/P Pulse Ox O2 Delivery O2 Flow Rate FiO2 10/31/16 22:52 98.0 71 16 117/71 98 Room Air 10/31/16 20:05 97.3 85 20 149/70 99 Physical Exam Const: Well-developed, well-nourished Head: Atraumatic, normocephalic Eyes: Normal Conjunctiva, PERRLA, EOMI, normal sclera, no nystagmus ENT: Normal External Ears, Nose and Mouth, moist mucus membranes. Neck: Full range of motion. No meningismus, no lymphadenopathy. Resp: Clear to auscultation bilaterally, no wheezing, rhonchi, rales Cardio: Regular rate and rhythm, no murmurs, S1 S2 present Abd: Soft, moderate tenderness to the left upper quadrant left abdomen , non distended. Normal bowel sounds, no guarding or rebound, no pulsitile abdominal masses or bruits Skin: No petechiae or rashes, no ecchymosis , no maculopapular rash Back: No midline or flank tenderness Ext: No cyanosis, or edema, FROM x 4, normal inspection, neurovascularly intact x 4 Neur: Awake and alert, STR 5/5 x 4, sensation intact x 4, no focal findings, cerebellum intact Psych: Normal Mood and Affect Result Diagram: 10/31/16 2100 10/31/16 2100 Results 24 hrs Laboratory Tests Test 10/31/16 21:00 White Blood Count 5.910^3/ul Red Blood Count 3.7010^6/ul Hemoglobin 11.1g/dl Hematocrit 34.1% Mean Corpuscular Volume 92.2fl Mean Corpuscular Hemoglobin 30.0pg Mean Corpuscular Hemoglobin Concent 32.6g/dl Red Cell Distribution Width 11.8% Platelet Count 64126^3/UL Mean Platelet Volume 9.8fl Neutrophils % 73.0% Band Neutrophils % 2.0% Lymphocytes % 18.0% Monocytes % 6.0% Eosinophils % 1.0% Neutrophils # 4.310^3/ul Lymphocytes # 1.110^3/ul Monocytes # 0.410^3/ul Eosinophils # 0.110^3/ul Platelet Estimate PLT APPEAR ADEQUATE Sodium Level 141mmol/L Potassium Level 3.8mmol/L Chloride Level 101mmol/L Carbon Dioxide Level 28mmol/L Anion Gap 16 Blood Urea Nitrogen 9mg/dl Creatinine 0.90mg/dl Glucose Level 105mg/dl Calcium Level 9.2mg/dl Total Bilirubin 0.4mg/dl Direct Bilirubin 0.00mg/dl Indirect Bilirubin 0.4mg/dl Aspartate Amino Transf (AST/SGOT) 19IU/L Alanine Aminotransferase (ALT/SGPT) 31IU/L Alkaline Phosphatase 72IU/L Total Protein 8.0g/dl Albumin 3.8g/dl Globulin 4.20g/dl Albumin/Globulin Ratio 0.90 Lipase 259U/L Current Medications Medications (Trade) Dose Ordered Sig/Olena Route PRN Reason Start Time Stop Time Status Last Admin Dose Admin Sodium Chloride (NS) 1,000 ml @ 1,000 mls/hr Q1H STAT IV 10/31/16 21:01 10/31/16 22:00 DC 7/18/17 21:13 Hydromorphone HCl (Dilaudid) 0.5 mg ONCE STAT IV 10/31/16 21:01 10/31/16 21:03 DC Ondansetron HCl (Zofran Inj) 4 mg ONCE STAT IV 10/31/16 21:01 10/31/16 21:03 DC Procedures/MDM PROCEDURE: CT abdomen and pelvis without contrast. CLINICAL INDICATION: Abdominal pain TECHNIQUE: CT scan of the abdomen and pelvis without contrast was performed. Sagittal and coronal reformatted images were obtained from the axial source images. CTDI = 11.31 mGy; DLP = 504.96 mGy-cm COMPARISON: CT 10/05/2016 FINDINGS: Visualized lower thorax: Left greater than right compressive atelectasis of the lower lobes is worse. Interval development of a small to moderate left pleural effusion and a trace right pleural effusion. Liver, gallbladder, pancreas and spleen: Diffuse hepatic enlargement caused by polycystic disease is again noted. There is no evidence for a solid liver mass or ductal dilatation. The gallbladder is unremarkable. No common bile duct abnormality is demonstrated. The pancreas is unremarkable. The spleen is normal in size. Adrenal glands and genitourinary system: The adrenal glands are normal bilaterally. Bilateral renal enlargement with multiple cysts consistent with polycystic kidney disease is again noted. No evidence of hydronephrosis. Stable punctate 2 mm calculus in the lower pole left kidney is again noted ( series 3 image 78). Some proteinaceous or hemorrhagic material within some of the left renal cysts is unchanged. The ureters are unremarkable. No urinary bladder abnormality is demonstrated. Calcification within the uterus is again seen likely a small leiomyoma with mild uterine atrophy. Gastrointestinal system: The stomach is contracted and unremarkable. Fluid- filled loops of distal small bowel are similar to the prior study possibly an adynamic ileus without evidence of complete obstruction. There is no evidence of appendicitis. The colon shows no evidence for wall thickening or acute abnormality. There is no evidence for colitis or diverticulitis. Peritoneum, retroperitoneum, lymph nodes and vessels: The abdominal aorta is normal in caliber. There is trace aortic atherosclerotic calcification. The inferior vena cava is unremarkable. There is no evidence for adenopathy or mass. A small amount of pelvic ascites is slightly increased compared to the prior examination. No pneumoperitoneum is present Osseous structures and musculoskeletal findings: There is no fracture, lytic or blastic lesion. No muscular abnormality or soft tissue pathology is present. RPTAT:HJJR IMPRESSION: 1. Mild dilatation of fluid-filled distal small bowel is similar to the study of 10/05/2016 and concerning for ileus or enteritis pattern without complete bowel obstruction. Consider follow-up evaluation 2. Small amount of dependent pelvic free fluid slightly increased compared to prior exam. 3. Hepatomegaly from polycystic disease is again noted. 4. Nephromegaly from of polycystic kidney disease again seen with a stable nonobstructing 2 mm lower pole renal calculus and some proteinaceous or hemorrhagic material within a few of the left renal cysts. 5. Incidental calcified leiomyoma. 6. New left pleural effusion with tiny right pleural effusion and increased bibasilar atelectasis. Physician Nii Date Time Electronically viewed and signed by Physician Nii on 10/31/2016 23:05 JR/ CC: CARRIE MERIDA DO Spoke with Dr Arboleda he reviewed the CT scan the patient we will admit for IV fluids and pain control he will take a look at her in the morning Patient has ileus no signs of obstruction Departure Diagnosis: Primary Impression: Ileus Additional Impressions: Abdominal pain Qualified Code: R10.12 - Left upper quadrant pain Vomiting Qualified Code: R11.2 - Nausea and vomiting, intractability of vomiting not specified, unspecified vomiting type Condition: Stable CARRIE MERIDA DO Oct 31, 2016 23:37
[2016-11-01] MEDS ORDERED: ACETAMINOPHEN 325 MG TAB PO PRN
[2016-11-01] MEDS: HYDROmorphONE 1 MG/ML SYG IV STA (00:11)
[2016-11-01 01:00] VITALS: BP 134/79; PULSE 83; RESP 16
[2016-11-01] MEDS ORDERED: morphine 2 MG INJ IV PRN (02:00)
[2016-11-01] MEDS ORDERED: ONDANSETRON 4 MG INJ IV PRN ×2 (02:00)
[2016-11-01] MEDS: DEXTROSE 5%-0.9% NACL 1,000 ML IV SCH ×4 (02:29→21:53)
[2016-11-01 05:53] LABS: ADD SCAN DIFF NO
[2016-11-01 05:57] LABS: BASOPHILS % 0.3 % (0.0-2.0); EOSINOPHILS # 0.1 10^3/ul (0.0-0.5); EOSINOPHILS % 2.3 % (0.0-7.0); HEMATOCRIT 28.4 % (37.0-47.0); LYMPHOCYTES # 1.2 10^3/ul (0.8-2.9); LYMPHOCYTES % 36.4 % (15.0-51.0); MEAN CORPUSCULAR HEMOGLOBIN 29.1 pg (29.0-33.0); MEAN CORPUSCULAR HGB CONC 31.7 g/dl (32.0-37.0); MEAN CORPUSCULAR VOLUME 91.9 fl (82.0-101.0); MONOCYTE # 0.5 10^3/ul (0.3-0.9); MONOCYTES % 15.8 % (0.0-11.0); NEUTROPHIL # 1.5 10^3/ul (1.6-7.5); NEUTROPHILS % 44.6 % (39.0-77.0); PLATELET COUNT 265 10^3/UL (140-415); RED BLOOD COUNT 3.09 10^6/ul (4.20-5.40); WHITE BLOOD COUNT 3.4 10^3/ul (4.8-10.8)
[2016-11-01] MEDS ORDERED: PANTOPRAZOLE 40 MG INJ IV SCH (06:00)
[2016-11-01 06:13] LABS: ALBUMIN 2.7 g/dl (3.3-4.9); ALBUMIN/GLOBULIN RATIO 0.84; BILIRUBIN,INDIRECT 0.2 mg/dl (0-1.1); BILIRUBIN,TOTAL 0.2 mg/dl (0.2-1.3); CALCIUM 8.7 mg/dl (8.4-10.2); CREATININE 0.84 mg/dl (0.44-1.00); TOTAL PROTEIN 5.9 g/dl (6.1-8.1)
[2016-11-01] MEDS ORDERED: CEFTRIAXONE 1 GM/50 ML (PMX) 50 ML IVPB SCH (08:00)
[2016-11-01 08:20] VITALS: BP 110/64; RESP 18
[2016-11-01 19:50] VITALS: BP 110/67; RESP 22
--- NOTE | 2016-11-01 22:19 | CONS ---
Date/Time of Note Date/Time of Note DATE: 11/01/16 TIME: 09:19 Assessment/Plan Assessment/Plan Additional Assessment/Plan [facility] INITIAL INPATIENT CONSULTATION NOTE DATE: 11/01/2016 PLACE OF SERVICE: [facility] 4th floor ASSESSMENT AND PLAN: A very pleasant 51-year-old lady well known to me since June 2014 for management of polycystic liver and kidney disease and s/p laparoscopic cyst unroofing 09/24/15, here with recurrent abdominal pain with nausea and vomiting; she had similar symptoms last month and was admitted with several days of observation inhouse with resolution of her symptoms. Of interest , she reports decrease in caliber of her stool. No colonoscopy in the past. Given above, GI consultation is indicated with colonoscopy, either this admission or shortly afterwards as an outpatient. No indication for acute surgical intervention. Her current clinical picture is not consistent with acute bowel obstruction or other major surgical etiology. Explained to patient ( no family present) and answered all of her questions. With above assessment, I recommended the followin. Keep inhouse 2. Advance diet to regular as tolerated 3. GI consult. Colonoscopy inhouse or as an outpatient per GI 4. Symptom control 5. Strict I's and O's 6. Bowel regimen from below only 7. Labs in am Thank you again for allowing us to participate in the care of this very pleasant lady and her wonderful family. If there are any questions, please feel free to call me at [phone]. Updated Clinical Summary: The patient is a very pleasant 49-year-old young lady with symptomatic polycystic kidney and liver disease with abdominal pain and decreased oral intake. Status post laparoscopic cyst unroofing (multiple) 09/24/2015 as an outpatient. Readmission to [facility] for partial SBO September 2016. Possible UTI, and later in the hospitalization, slight elevation in amylase and lipase. S/p EGD at [facility] by Dr. Harrison: Erosive gastritis, sub-endothelial 2 cm lesion in the duodenal bulb, normal duodenum, normal Z line at 38 cm, normal esophagus. Readmitted [facility] for abd pain, nausea and vomiting 10/31/16. Comorbidities: 1. BMI 29.5 2. Polycystic kidney and liver disease discovered in the summer of 2013 3. S/p laparoscopic cyst unroofing (multiple) 09/24/2015 as an outpatient at [facility] through [facility] 4. S/p partial hysterectomy in 2010 5. S/p EGD at [facility] by Dr. Harrison ( Erosive gastritis, sub-endothelial 2 cm lesion in the duodenal bulb, normal duodenum, normal Z line at 38 cm, normal esophagus) 6. Erosive gastritis 7. Sub-endothelial 2 cm lesion in the duodenal bulb HISTORY OF PRESENT ILLNESS: The patient is a very pleasant 51-year-old lady well known to me since June 2014, admitted through ED at [facility] 10/31/16 for observation with abdominal pain and non-bloody vomiting and nausea for a few hours. No fevers or chills. No blood in stool or urine. Decreased caliber of stools. W/u showed normal labs and unremarkable CT other than polycystic liver and kidney disease which is unchanged since last year. No other major complaints. ALLERGIES: PCN HOME MEDICATIONS: See EHR SOCIAL HISTORY: The patient was born in [place], [place]. She is and has 2 children. 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 She does not report any smoking. Has social type drinking and no intravenous drug use. FAMILY HISTORY: There is no family history of polycystic liver or kidney disease that is known. There is also no major medical or malignant processes in the family that is noted by the patient or noted in the chart. REVIEW OF SYSTEMS: Other than the above-mentioned, there are no other pertinent positives or pertinent negatives in a complete 14-point review of systems. PHYSICAL EXAMINATION GENERAL: The patient appears to be a very pleasant -[place] lady of non - descent, appearing stated age, quite fit and not cachectic, laying in bed comfortably and in no acute distress. VITAL SIGNS: BMI 21.6 (previously 29.5). AVSS. HEENT: Her head is normocephalic and atraumatic. Her extraocular muscles and hearing are grossly intact bilaterally and symmetrically. Her sclerae are nonicteric. Her oral cavity is clear and her oral mucosa appeared to be pink and moist. She has good dentition. NECK: Supple. There is no lymphadenopathy or JVD. There is no submental, submandibular or supraclavicular lymphadenopathy. CHEST: Her chest rises symmetrically with each breath and she is breathing comfortably. There are no audible wheezes, rales or rhonchi on the gross exam. Her pulse is regular and palpable on the left wrist. Carotid pulses are palpable bilaterally and symmetrically in her neck. Capillary refill is normal. EXTREMITIES: Her lower extremities contain no pitting edema bilaterally and symmetrically. ABDOMEN: Soft, nondistended and nontender. Incisions c/d/i w/o any evidence for e/e/d/h. There are no peritoneal signs or guarding. SKIN: Appears to be pink and feels warm to touch. NEUROLOGIC: She is awake, alert, and follows commands appropriately. LABORATORY DATA: See EHR IMAGING: [facility] abd/pelvis CT 10/31/16 IMPRESSION: 1. Mild dilatation of fluid-filled distal small bowel is similar to the study of 10/05/2016 and concerning for ileus or enteritis pattern without complete bowel obstruction. Consider follow-up evaluation 2. Small amount of dependent pelvic free fluid slightly increased compared to prior exam. 3. Hepatomegaly from polycystic disease is again noted. 4. Nephromegaly from of polycystic kidney disease again seen with a stable nonobstructing 2 mm lower pole renal calculus and some proteinaceous or hemorrhagic material within a few of the left renal cysts. 5. Incidental calcified leiomyoma. 6. New left pleural effusion with tiny right pleural effusion and increased bibasilar atelectasis. CT abd/pelvis done 10/05/16 with comparison to 08/19/15 IMPRESSION: 1. Findings consistent with polycystic kidney disease again seen which has not changed significantly. 2. Small amount of free fluid. 3. Mildly distended and fluid-filled distal small bowel which may represent an ileus. 4. 2 mm non-obstructing left renal calculus. Previously, the patient had an ultrasound of the right upper quadrant on 2013 that showed changes consistent with polycystic kidneys as well as enumerable cysts in the liver. Gallbladder was not visualized. A CT scan done on the same day showed extensive and numerous hepatic cysts throughout the liver resulting in moderate to severe hepatomegaly. There were no focal hepatic masses or intrahepatic biliary dilatation. The spleen was normal in size and homogeneous. The stomach was partially collapsed and is grossly unremarkable. Note that I reviewed both of all available pertinent images in person and I agree in general with their overall findings. As demonstrated previously, most of the disease is still spread fairly uniformly throughout the liver, although in the segments 7 and 8 of the liver there seems to be more collection of larger cysts than the rest of the liver. Consultation Date/Type/Reason Admit Date/Time Oct 31, 2016 at 23:39 Social History Smoking Status: Never smoker Exam/Review of Systems Vital Signs Vitals Vital Signs Date Time Temp Pulse Resp B/P Pulse Ox O2 Delivery O2 Flow Rate FiO2 11/01/16 19:50 98.2 64 22 110/67 100 11/01/16 01:00 Room Air Intake and Output 10/31/16 10/31/16 11/01/16 15:00 23:00 07:00 Intake Total 1000 ml 250 ml Balance 1000 ml 250 ml Results Result Diagram: 11/01/16 0504 11/01/16 0504 Results 24 hrs Laboratory Tests Test 11/01/16 05:04 White Blood Count 3.4 #L Red Blood Count 3.09 L Hemoglobin 9.0 L Hematocrit 28.4 L Mean Corpuscular Volume 91.9 Mean Corpuscular Hemoglobin 29.1 Mean Corpuscular Hemoglobin Concent 31.7 L Red Cell Distribution Width 12.0 Platelet Count 265 # Mean Platelet Volume 10.0 Neutrophils % 44.6 Lymphocytes % 36.4 Monocytes % 15.8 H Eosinophils % 2.3 Basophils % 0.3 Nucleated Red Blood Cells % 0.0 Neutrophils # 1.5 L Lymphocytes # 1.2 Monocytes # 0.5 Eosinophils # 0.1 Basophils # 0.0 Nucleated Red Blood Cells # 0.0 Sodium Level 144 Potassium Level 4.0 Chloride Level 103 Carbon Dioxide Level 29 Anion Gap 16 Blood Urea Nitrogen 9 Creatinine 0.84 Glucose Level 108 Calcium Level 8.7 Total Bilirubin 0.2 Direct Bilirubin 0.00 Indirect Bilirubin 0.2 Aspartate Amino Transf (AST/SGOT) 14 L Alanine Aminotransferase (ALT/SGPT) 24 Alkaline Phosphatase 47 Total Protein 5.9 #L Albumin 2.7 #L Globulin 3.20 Albumin/Globulin Ratio 0.84 Medications Medications Current Medications Dextrose/Sodium Chloride (D5-NS) 1,000 ml @ 100 mls/hr Q10H IV Last administered on 11/01/16 15:08; Admin Dose 100 MLS/HR; Start 11/01/16 at 02:00 Morphine Sulfate (morphine) 2 mg Q4H PRN IV PAIN; Start 11/01/16 at 02:00 Pantoprazole (Protonix Iv) 40 mg DAILY@06 IV Last administered on 7/19/17at 06: 15; Admin Dose 40 MG; Start 11/01/16 at 06:00 Ondansetron HCl (Zofran Inj) 4 mg Q4H PRN IV NAUSEA AND/OR VOMITING; Start at 02:00 HEMAL EMERY M.D. Nov 01, 2016 22:19
--- NOTE | 2016-11-01 22:31 | QN ---
Documentation Comment [id number] MARIANNE MONTELONGO MD Nov 01, 2016 22:31
[2016-11-02] MEDS: DEXTROSE 5%-0.9% NACL 1,000 ML IV SCH ×2 (01:14→17:07)
[2016-11-02] MEDS: PANTOPRAZOLE (EC) 40 MG TAB PO SCH (05:13)
[2016-11-02 08:00] VITALS: BP 138/63; RESP 20
--- NOTE | 2016-11-02 13:16 | PN ---
Date/Time of Note Date/Time of Note DATE: 11/02/16 TIME: 13:13 Assessment/Plan Lines/Catheters IV Catheter Type (from Nrs): Peripheral IV Assessment/Plan Assessment/Plan [facility] Progress Note Date of Service: 11/02/16 Today's Impression & Plan: Overall stable with continued abdominal pain/discomfort and bloating. Needs GI eval for colonoscopy. No indication for acute surgical intervention. Her current clinical picture is not consistent with acute bowel obstruction or other major surgical etiology. Explained to patient (no family present) and answered all of her questions. With above assessment, I recommended the followin. Keep inhouse 2. Cont advancing diet to regular as tolerated 3. GI consult. Colonoscopy inhouse or as an outpatient per GI (d/w Dr. Bridges) 4. Symptom control 5. Strict I's and O's 6. Bowel regimen from below only 7. Labs in am Thank you again for allowing us to participate in the care of this very pleasant lady and her wonderful family. If there are any questions, please feel free to call me at [phone]. Updated Clinical Summary: The patient is a very pleasant 49-year-old young lady with symptomatic polycystic kidney and liver disease with abdominal pain and decreased oral intake. Status post laparoscopic cyst unroofing (multiple) 09/24/2015 as an outpatient. Readmission to [facility] for partial SBO September 2016. Possible UTI, and later in the hospitalization, slight elevation in amylase and lipase. S/p EGD at [facility] by Dr. Harrison: Erosive gastritis, sub-endothelial 2 cm lesion in the duodenal bulb, normal duodenum, normal Z line at 38 cm, normal esophagus. Readmitted [facility] for abd pain, nausea and vomiting 10/31/16. Comorbidities: 1. BMI 29.5 2. Polycystic kidney and liver disease discovered in the summer of 2013 3. S/p laparoscopic cyst unroofing (multiple) 09/24/2015 as an outpatient at [facility] through [facility] 4. S/p partial hysterectomy in 2010 5. S/p EGD at [facility] by Dr. Harrison ( Erosive gastritis, sub-endothelial 2 cm lesion in the duodenal bulb, normal duodenum, normal Z line at 38 cm, normal esophagus) 6. Erosive gastritis 7. Sub-endothelial 2 cm lesion in the duodenal bulb Subjective: No major events or complaints; mild abd pain with bloating and under control with medications; no n/v/d; no sob or cp; - flatus; - BM; + activity Objective: Vitals: See below Exam: GENERAL: On exam, the patient was sitting in a chair and appeared to be comfortable and in no acute distress. ABDOMEN: Soft, mildly tender and mildly distended. There are no peritoneal signs or guarding. SKIN: Skin appears to be pink and feels warm to touch. NEUROLOGIC: Patient is awake, alert, and follows commands appropriately. Exam/Review of Systems Vital Signs Vitals Vital Signs Date Time Temp Pulse Resp B/P Pulse Ox O2 Delivery O2 Flow Rate FiO2 11/02/16 08:00 98.7 63 20 138/63 98 11/01/16 01:00 Room Air Intake and Output 11/01/16 11/01/16 11/02/16 15:00 23:00 07:00 Intake Total 50 ml 1750 ml 2000 ml Output Total 600 ml 500 ml Balance 50 ml 1150 ml 1500 ml Results Result Diagram: 11/01/16 0504 11/01/16 0504 HEMAL EMERY M.D. Nov 02, 2016 13:16
--- NOTE | 2016-11-02 19:26 | CONS ---
Date/Time of Note Date/Time of Note DATE: 11/02/16 TIME: 19:23 Assessment/Plan Assessment/Plan Additional Assessment/Plan 1. Change in the configuration of the stool 2. Abdominal pain associated with nausea vomiting 3. Polycystic kidney and liver disease Plan Patient is cleared by the surgeon for colonoscopy will prepare her for a colonoscopy discussed with the patient and is agreed for the procedure. Consultation Date/Type/Reason Admit Date/Time Oct 31, 2016 at 23:39 Hx of Present Illness 51-year-old female with a history of polycystic kidney and liver disease admitted for abdominal pain nausea and vomiting. Patient had a de-shantelle of the liver cyst. She also complains of change in the configuration of the stool. 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 She is able to tolerate oral feeding. Past Surgical History Past Surgical Hx: other (The shantelle of the liver cyst) Family History Significant Family History: no pertinent family hx Social History Alcohol Use: none Smoking Status: Never smoker Exam/Review of Systems Vital Signs Vitals Vital Signs Date Time Temp Pulse Resp B/P Pulse Ox O2 Delivery O2 Flow Rate FiO2 11/02/16 08:00 98.7 63 20 138/63 98 11/01/16 01:00 Room Air Intake and Output 11/01/16 11/01/16 11/02/16 15:00 23:00 07:00 Intake Total 50 ml 1750 ml 2000 ml Output Total 600 ml 500 ml Balance 50 ml 1150 ml 1500 ml Exam Constitutional: alert, oriented, well developed Psych: nl mood/affect, no complaints Head: atraumatic, normocephalic Eyes: EOMI, PERRL, nl conjunctiva, nl lids, nl sclera ENMT: nl external ears & nose, nl lips & teeth, nl nasal mucosa & septum Neck: non-tender, supple Respiratory: clear to auscultation, normal air movement Cardiovascular: nl pulses, regular rate and rhythm Gastrointestinal: nl liver, spleen, non-tender, soft Musculoskeletal: nl extremities to inspection, nl gait and stance Extremities: normal pulses 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, nl mental status, nl speech, nl strength Skin: nl turgor, No rash or lesions Lymph: nl lymph nodes Results Result Diagram: 11/01/16 0504 11/01/16 0504 Medications Medications Current Medications Dextrose/Sodium Chloride (D5-NS) 1,000 ml @ 100 mls/hr Q10H IV Last administered on 11/02/16 17:07; Admin Dose 100 MLS/HR; Start 11/01/16 at 02:00 Morphine Sulfate (morphine) 2 mg Q4H PRN IV PAIN Last administered on 22:33; Admin Dose 2 MG; Start 11/01/16 at 02:00 Ondansetron HCl (Zofran Inj) 4 mg Q4H PRN IV NAUSEA AND/OR VOMITING; Start at 02:00 Pantoprazole (Protonix Tab) 40 mg DAILY@06 PO Last administered on 11/02/16 05 :13; Admin Dose 40 MG; Start 11/02/16 at 06:00 OBED SEARS MD Nov 02, 2016 19:26
[2016-11-02 19:39] VITALS: BP 122/76; RESP 22
[2016-11-02] MEDS ORDERED: BISACODYL (EC) 5 MG TAB PO ONE ×3 (20:00→23:00)
[2016-11-02] MEDS ORDERED: PEG/ELECTROLYTES 4L BTL PO ONE ×2 (21:00→23:00)
--- NOTE | 2016-11-02 22:21 | PN ---
Date/Time of Note Date/Time of Note DATE: 11/02/16 TIME: 22:20 Assessment/Plan VTE Prophylaxis VTE Prophylaxis Intervention: other Lines/Catheters IV Catheter Type (from Nrsg): Peripheral IV Assessment/Plan Chief Complaint/Hosp Course PKD ABD PAIN PLAN PER GI Problems: Subjective 24 Hr Interval Summary Subjective hx not possible: other (ABD PAIN BETTER WILL NEED COLONOSCOPY DR SEARS CALLED) Cardiovascular: no complaints Gastrointestinal: no complaints Genitourinary: no complaints Exam/Review of Systems Vital Signs Vitals Vital Signs Date Time Temp Pulse Resp B/P Pulse Ox O2 Delivery O2 Flow Rate FiO2 11/02/16 19:39 98.9 69 22 122/76 100 11/01/16 01:00 Room Air Intake and Output 11/01/16 11/01/16 11/02/16 15:00 23:00 07:00 Intake Total 50 ml 1750 ml 2000 ml Output Total 600 ml 500 ml Balance 50 ml 1150 ml 1500 ml Exam Respiratory: clear to auscultation Cardiovascular: regular rate and rhythm Gastrointestinal: bowel sounds (p), soft Results Result Diagram: 11/01/16 0504 11/01/16 0504 Medications Medications Current Medications Dextrose/Sodium Chloride (D5-NS) 1,000 ml @ 100 mls/hr Q10H IV Last administered on 11/02/16 17:07; Admin Dose 100 MLS/HR; Start 11/01/16 at 02:00 Morphine Sulfate (morphine) 2 mg Q4H PRN IV PAIN Last administered on 22:33; Admin Dose 2 MG; Start 11/01/16 at 02:00 Ondansetron HCl (Zofran Inj) 4 mg Q4H PRN IV NAUSEA AND/OR VOMITING; Start at 02:00 Pantoprazole (Protonix Tab) 40 mg DAILY@06 PO Last administered on 11/02/16 05 :13; Admin Dose 40 MG; Start 11/02/16 at 06:00 Bisacodyl (Dulcolax) 5 mg ONCE ONCE PO ; Start 11/02/16 at 23:00; Stop at 23:01 Bisacodyl (Dulcolax) 5 mg ONCE ONCE PO ; Start 11/02/16 at 23:00; Stop at 23:01; Status MARIANNE YU MD Nov 02, 2016 22:21
[2016-11-03] VITALS (7 sets, daily range): BP systolic 110–146; BP diastolic 55–89; PULSE 18–68; RESP 18–28
[2016-11-03] MEDS: DEXTROSE 5%-0.9% NACL 1,000 ML IV SCH ×2 (04:00→14:00)
[2016-11-03] MEDS: PANTOPRAZOLE (EC) 40 MG TAB PO SCH (05:39)
--- NOTE | 2016-11-03 11:32 | PN ---
Date/Time of Note Date/Time of Note DATE: 11/03/16 TIME: 11:31 Assessment/Plan VTE Prophylaxis VTE Prophylaxis Intervention: ambulation Lines/Catheters IV Catheter Type (from Nrsg): Peripheral IV Assessment/Plan Chief Complaint/Hosp Course 1. Polycystic kidney and liver disease 2. Abdominal pain 3/Anemia Problems: Subjective 24 Hr Interval Summary Gastrointestinal: no complaints Genitourinary: no complaints Exam/Review of Systems Vital Signs Vitals Vital Signs Date Time Temp Pulse Resp B/P Pulse Ox O2 Delivery O2 Flow Rate FiO2 11/03/16 08:44 97.7 61 20 115/69 99 11/01/16 01:00 Room Air Intake and Output 11/02/16 11/02/16 11/03/16 15:00 23:00 07:00 Intake Total 1490 ml 1850 ml Output Total 900 ml 400 ml Balance 590 ml 1450 ml Exam Constitutional: alert, oriented Respiratory: clear to auscultation Cardiovascular: regular rate and rhythm Results Result Diagram: 11/01/16 0504 11/01/16 0504 Medications Medications Current Medications Dextrose/Sodium Chloride (D5-NS) 1,000 ml @ 100 mls/hr Q10H IV Last administered on 11/02/16 17:07; Admin Dose 100 MLS/HR; Start 11/01/16 at 02:00 Morphine Sulfate (morphine) 2 mg Q4H PRN IV PAIN Last administered on 22:33; Admin Dose 2 MG; Start 11/01/16 at 02:00 Ondansetron HCl (Zofran Inj) 4 mg Q4H PRN IV NAUSEA AND/OR VOMITING; Start at 02:00 Pantoprazole (Protonix Tab) 40 mg DAILY@06 PO Last administered on 11/03/16 05 :39; Admin Dose 40 MG; Start 11/02/16 at 06:00 MARCO DEL CID Nov 03, 2016 11:32
--- NOTE | 2016-11-03 15:42 | PN ---
Date/Time of Note Date/Time of Note DATE: 11/03/16 TIME: 15:40 Assessment/Plan Lines/Catheters IV Catheter Type (from Nrsg): Peripheral IV Assessment/Plan Assessment/Plan [facility] Progress Note Date of Service: 11/03/16 Today's Impression & Plan: Overall stable with continued abdominal pain/discomfort and bloating. Being taken down for colonoscopy. No indication for acute surgical intervention. Her current clinical picture is not consistent with acute bowel obstruction or other major surgical etiology. Explained to patient (no family present) and answered all of her questions. With above assessment, I recommended the followin. Keep inhouse 2. Cont advancing diet to regular as tolerated 3. Colonoscopy today 4. Symptom control 5. Strict I's and O's 6. Bowel regimen from below only 7. Labs in am Thank you again for allowing us to participate in the care of this very pleasant lady and her wonderful family. If there are any questions, please feel free to call me at [phone]. Updated Clinical Summary: The patient is a very pleasant 49-year-old young lady with symptomatic polycystic kidney and liver disease with abdominal pain and decreased oral intake. Status post laparoscopic cyst unroofing (multiple) 09/24/2015 as an outpatient. Readmission to [facility] for partial SBO September 2016. Possible UTI, and later in the hospitalization, slight elevation in amylase and lipase. S/p EGD at [facility] by Dr. Harrison: Erosive gastritis, sub-endothelial 2 cm lesion in the duodenal bulb, normal duodenum, normal Z line at 38 cm, normal esophagus. Readmitted [facility] for abd pain, nausea and vomiting 10/31/16. Comorbidities: 1. BMI 29.5 2. Polycystic kidney and liver disease discovered in the summer of 2013 3. S/p laparoscopic cyst unroofing (multiple) 09/24/2015 as an outpatient at [facility] through [facility] 4. S/p partial hysterectomy in 2010 5. S/p EGD at [facility] by Dr. Harrison ( Erosive gastritis, sub-endothelial 2 cm lesion in the duodenal bulb, normal duodenum, normal Z line at 38 cm, normal esophagus) 6. Erosive gastritis 7. Sub-endothelial 2 cm lesion in the duodenal bulb Subjective: No major events or complaints; mild abd pain with bloating and under control with medications; no n/v/d; no sob or cp; + flatus; + BM (tolerated prep but with discomfort and bloating); + activity Objective: Vitals: See below Exam: GENERAL: On exam, the patient was laying in bed and appeared to be comfortable and in no acute distress. ABDOMEN: Soft, mildly tender and mildly distended. There are no peritoneal signs or guarding. SKIN: Skin appears to be pink and feels warm to touch. NEUROLOGIC: Patient is awake, alert, and follows commands appropriately. Exam/Review of Systems Vital Signs Vitals Vital Signs Date Time Temp Pulse Resp B/P Pulse Ox O2 Delivery O2 Flow Rate FiO2 11/03/16 15:04 98.9 60 19 120/69 96 Room Air Intake and Output 11/02/16 11/02/16 11/03/16 15:00 23:00 07:00 Intake Total 1490 ml 1850 ml Output Total 900 ml 400 ml Balance 590 ml 1450 ml Results Result Diagram: 11/01/16 0504 11/01/16 0504 HEMAL EMERY M.D. Nov 03, 2016 15:42
[2016-11-03] MEDS ORDERED: MIDAZOLAM 1 MG/ML 2 ML INJ ONE (16:00)
[2016-11-03] MEDS ORDERED: PROPOFOL 20 ML ONE (16:00)
[2016-11-03] MEDS ORDERED: FENTAnyl 50 MCG/ML VIAL ONE (16:00)
--- NOTE | 2016-11-03 16:22 | OPR ---
Date/Time of Note Date/Time of Note DATE: 11/03/16 TIME: 16:20 Operative Report Preoperative Diagnosis Change in bowel habits, abdominal pain Postoperative Diagnosis 7 mm sessile polyp successfully removed by cold snare technique next internal hemorrhoids next negative all the way into cecum Operation/Procedure Performed Colonoscopy with cold snare polypectomy Surgeon: OBED SEARS MD Anesthesia: MAC Estimated Blood Loss: none Specimens Polyp, I do not know whether it was retrieved are not Complications: None OBED SEARS MD Nov 03, 2016 16:22
[2016-11-04 04:53] LABS: HEMATOCRIT 29.2 % (37.0-47.0); HEMOGLOBIN 9.3 g/dl (12.0-16.0); MEAN CORPUSCULAR HEMOGLOBIN 28.9 pg (29.0-33.0); MEAN CORPUSCULAR HGB CONC 31.8 g/dl (32.0-37.0); MEAN CORPUSCULAR VOLUME 90.7 fl (82.0-101.0); MEAN PLATELET VOLUME 9.7 fl (7.4-10.4); PLATELET COUNT 224 10^3/UL (140-415); RED BLOOD COUNT 3.22 10^6/ul (4.20-5.40); RED CELL DISTRIBUTION WIDTH 11.9 % (11.5-14.5); WHITE BLOOD COUNT 3.4 10^3/ul (4.8-10.8)
[2016-11-04 05:09] LABS: POSITIVE DIFF @See below
[2016-11-04 05:42] LABS: CALCIUM 8.7 mg/dl (8.4-10.2); CREATININE 0.82 mg/dl (0.44-1.00); POTASSIUM 3.5 mmol/L (3.5-5.1)
[2016-11-04 07:00] VITALS: BP 122/73; RESP 20
[2016-11-04] MEDS ORDERED: LIDOCAINE 2% (SDV) 5 ML INJ ONE (07:00)
[2016-11-04] MEDS: PANTOPRAZOLE (EC) 40 MG TAB PO SCH (07:11)
[2016-11-04 08:40] LABS: EOSINOPHILS # 0.2 10^3/ul (0.0-0.5); LYMPHOCYTES # 0.9 10^3/ul (0.8-2.9); MONOCYTE # 0.3 10^3/ul (0.3-0.9)
[2016-11-04] MEDS: DEXTROSE 5%-0.9% NACL 1,000 ML IV SCH ×2 (10:00)
--- NOTE | 2016-11-04 12:16 | HP ---
DATE OF ADMISSION: 10/31/2016 HISTORY OF PRESENT ILLNESS: Patient with a history of polycystic kidney disease. The patient presented with abdominal pain for two weeks. The patient denies any diarrhea The patient also has nausea and vomiting. The patient had a blood pressure of 100/71. WBC _ and hematocrit . The patient is being admitted for further management. The patient's CT of abdomen and pelvis showed dilatation and fluid- filled small bowel. PAST MEDICAL HISTORY: Positive for polycystic kidney disease. The patient has . Liver cysts. ALLERGIES: PENICILLIN. SOCIAL HISTORY: Noncontributory. FAMILY HISTORY: Noncontributory. MEDICATIONS: 1. Losartan. 2. IV fluids. REVIEW OF SYSTEMS: HEENT unremarkable. RESPIRATORY: Unremarkable. CVS: Unremarkable. ABDOMEN: As mentioned above. . PHYSICAL EXAMINATION: GENERAL APPEARANCE: The patient is awake, alert. VITAL SIGNS: Stable. HEENT: Normocephalic, atraumatic. Pupils equal and reactive to light. NECK: Supple. No JVD. LUNGS: Clear. HEART: S1, S2 normal. ABDOMEN: Distended. Bowel sounds positive. Tenderness in the bilateral upper quadrants. EXTREMITIES: No clubbing, cyanosis or edema. NEUROLOGIC: The patient is awake, alert with no focal deficit. LABORATORY DATA: As mentioned above. IMPRESSION: 1. Abdominal pain. 2. History of polycystic kidney disease. 3. CT of abdomen and pelvis showed mild dilatation and fluid- filled small bowel. were increased. Hepatomegaly. Nephromegaly. . PLAN: Continue IV fluids. Pain medication. Orders were written. Dictated By: Mikie Bridges MD /chavez/shane /Document#: [id number] ENOCH
--- NOTE | 2016-11-04 13:17 | PN ---
Date/Time of Note Date/Time of Note DATE: 11/04/16 TIME: 13:17 Assessment/Plan VTE Prophylaxis VTE Prophylaxis Intervention: ambulation Lines/Catheters IV Catheter Type (from Nrsg): Saline Lock Assessment/Plan Chief Complaint/Hosp Course 1. Polycystic kidney and liver disease 2. Abdominal pain 3/Anemia Problems: Assessment/Plan 1. Pending colonoscopy Subjective 24 Hr Interval Summary Constitutional: improved, no complaints Exam/Review of Systems Vital Signs Vitals Vital Signs Date Time Temp Pulse Resp B/P Pulse Ox O2 Delivery O2 Flow Rate FiO2 11/04/16 07:00 98.3 53 20 122/73 100 11/03/16 16:56 Room Air Mask 11/03/16 16:31 6.0 Intake and Output 11/03/16 11/03/16 11/04/16 15:00 23:00 07:00 Intake Total 300 ml Balance 300 ml Exam Head: normocephalic Eyes: nl conjunctiva Respiratory: clear to auscultation Cardiovascular: regular rate and rhythm Gastrointestinal: soft Results Result Diagram: 11/04/16 0431 11/04/16 0431 Results 24 hrs Laboratory Tests Test 11/04/16 04:31 White Blood Count 3.4 L Red Blood Count 3.22 L Hemoglobin 9.3 L Hematocrit 29.2 L Mean Corpuscular Volume 90.7 Mean Corpuscular Hemoglobin 28.9 L Mean Corpuscular Hemoglobin Concent 31.8 L Red Cell Distribution Width 11.9 Platelet Count 224 Mean Platelet Volume 9.7 Neutrophils % 60.0 Lymphocytes % 26.0 Monocytes % 9.0 Eosinophils % 5.0 Basophils % Nucleated Red Blood Cells % 0.0 Neutrophils # 2.0 Lymphocytes # 0.9 Monocytes # 0.3 Eosinophils # 0.2 Basophils # Nucleated Red Blood Cells # Sodium Level 143 Potassium Level 3.5 Chloride Level 103 Carbon Dioxide Level 29 Anion Gap 15 Blood Urea Nitrogen 7 Creatinine 0.82 Glucose Level 87 Calcium Level 8.7 Medications Medications Current Medications Dextrose/Sodium Chloride (D5-NS) 1,000 ml @ 100 mls/hr Q10H IV Last administered on 11/02/16 17:07; Admin Dose 100 MLS/HR; Start 11/01/16 at 02:00 Morphine Sulfate (morphine) 2 mg Q4H PRN IV PAIN Last administered on 22:33; Admin Dose 2 MG; Start 11/01/16 at 02:00 Ondansetron HCl (Zofran Inj) 4 mg Q4H PRN IV NAUSEA AND/OR VOMITING; Start at 02:00 Pantoprazole (Protonix Tab) 40 mg DAILY@06 PO Last administered on 11/04/16t 07 :11; Admin Dose 40 MG; Start 11/02/16 at 06:00 MARCO DEL CID Nov 04, 2016 13:17
--- NOTE | 2016-11-04 13:38 | CONS ---
Date/Time of Note Date/Time of Note DATE: 11/04/16 TIME: 13:38 Assessment/Plan Assessment/Plan Chief Complaint/Hosp Course 51-year-old female with a history of polycystic kidney and liver disease admitted for abdominal pain nausea and vomiting. Patient had a de-shantelle of the liver cyst. She also complains of change in the configuration of the stool. No GI bleeding no chest pain no shortness of breath no fever no chills no or CALENDERER problem. She is able to tolerate oral feeding. Problems: Additional Assessment/Plan 1. Change in the configuration of the stool 2. Abdominal pain associated with nausea vomiting 3. Polycystic kidney and liver disease Plan Linzess 145 mcg p.o. daily Consultation Date/Type/Reason Admit Date/Time Nov 02, 2016 at 17:33 Initial Consult Date 24 HR Interval Summary Constitutional: improved, no complaints Exam/Review of Systems Vital Signs Vitals Vital Signs Date Time Temp Pulse Resp B/P Pulse Ox O2 Delivery O2 Flow Rate FiO2 11/04/16 07:00 98.3 53 20 122/73 100 11/03/16 16:56 Room Air Mask 11/03/16 16:31 6.0 Intake and Output 11/03/16 11/03/16 11/04/16 15:00 23:00 07:00 Intake Total 300 ml Balance 300 ml Exam Constitutional: alert, oriented, well developed Psych: nl mood/affect, no complaints Head: atraumatic, normocephalic Eyes: EOMI, PERRL, nl conjunctiva, nl lids, nl sclera ENMT: nl external ears & nose, nl lips & teeth, nl nasal mucosa & septum Neck: non-tender, supple Respiratory: clear to auscultation, normal air movement Cardiovascular: nl pulses, regular rate and rhythm Gastrointestinal: nl liver, spleen, non-tender, soft Musculoskeletal: nl extremities to inspection, nl gait and stance Extremities: normal pulses Neurological: CALENDERER II-XII intact, nl mental status, nl speech, nl strength Skin: nl turgor, No rash or lesions Lymph: nl lymph nodes Results Result Diagram: 11/04/16 0431 11/04/16 043 Results 24 hrs Laboratory Tests Test 11/04/16 04:31 White Blood Count 3.4 L Red Blood Count 3.22 L Hemoglobin 9.3 L Hematocrit 29.2 L Mean Corpuscular Volume 90.7 Mean Corpuscular Hemoglobin 28.9 L Mean Corpuscular Hemoglobin Concent 31.8 L Red Cell Distribution Width 11.9 Platelet Count 224 Mean Platelet Volume 9.7 Neutrophils % 60.0 Lymphocytes % 26.0 Monocytes % 9.0 Eosinophils % 5.0 Basophils % Nucleated Red Blood Cells % 0.0 Neutrophils # 2.0 Lymphocytes # 0.9 Monocytes # 0.3 Eosinophils # 0.2 Basophils # Nucleated Red Blood Cells # Sodium Level 143 Potassium Level 3.5 Chloride Level 103 Carbon Dioxide Level 29 Anion Gap 15 Blood Urea Nitrogen 7 Creatinine 0.82 Glucose Level 87 Calcium Level 8.7 Medications Medications Current Medications Dextrose/Sodium Chloride (D5-NS) 1,000 ml @ 100 mls/hr Q10H IV Last administered on 11/02/16 17:07; Admin Dose 100 MLS/HR; Start 11/01/16 at 02:00 Morphine Sulfate (morphine) 2 mg Q4H PRN IV PAIN Last administered on 22:33; Admin Dose 2 MG; Start 11/01/16 at 02:00 Ondansetron HCl (Zofran Inj) 4 mg Q4H PRN IV NAUSEA AND/OR VOMITING; Start at 02:00 Pantoprazole (Protonix Tab) 40 mg DAILY@06 PO Last administered on 11/04/16 07 :11; Admin Dose 40 MG; Start 11/02/16 at 06:00 OBED SEARS MD Nov 04, 2016 13:38
--- NOTE | 2016-11-04 13:46 | PN ---
Date/Time of Note Date/Time of Note DATE: 11/04/16 TIME: 13:43 Assessment/Plan Lines/Catheters IV Catheter Type (from [facility]): Saline Lock Assessment/Plan Assessment/Plan [facility] Progress Note Date of Service: 11/04/16 Today's Impression & Plan: Overall stable. Colonoscopy fortunately showed no obvious malignancy or other concerning features. Dr. Harrison will be discussing further management with the patient (possible IBD versus other medical sources of bloating and abdominal pain). Both him and I agree that patient's symptoms are likely not because of her polycystic liver disease. Abdomen otherwise remains benign. No indication for acute surgical intervention. Explained to patient (no family present) and answered all of her questions. With above assessment, I recommended the followin. Medical management per Dr. Harrison and Dr. Bridges 2. Discharge planning once medically stable. Okay from my standpoint for patient to go home 3. Follow with primary care physician as well as with Dr. Harrison Thank you again for allowing us to participate in the care of this very pleasant lady and her wonderful family. If there are any questions, please feel free to call me at [phone]. Updated Clinical Summary: The patient is a very pleasant 49-year-old young lady with symptomatic polycystic kidney and liver disease with abdominal pain and decreased oral intake. Status post laparoscopic cyst unroofing (multiple) 09/24/2015 as an outpatient. Readmission to [facility] for partial SBO September 2016. Possible UTI, and later in the hospitalization, slight elevation in amylase and lipase. S/p EGD at [facility] by Dr. Harrison: Erosive gastritis, sub-endothelial 2 cm lesion in the duodenal bulb, normal duodenum, normal Z line at 38 cm, normal esophagus. Readmitted [facility] for abd pain, nausea and vomiting 10/31/16. Status post colonoscopy 11/03/2016 that showed small polyp in the sigmoid colon (removed) and no other major pathology. Comorbidities: 1. BMI 29.5 2. Polycystic kidney and liver disease discovered in the summer of 2013 3. S/p laparoscopic cyst unroofing (multiple) 09/24/2015 as an outpatient at [facility] through [facility] 4. S/p partial hysterectomy in 2010 5. S/p EGD at [facility] by Dr. Harrison ( Erosive gastritis, sub-endothelial 2 cm lesion in the duodenal bulb, normal duodenum, normal Z line at 38 cm, normal esophagus) 6. Erosive gastritis 7. Sub-endothelial 2 cm lesion in the duodenal bulb 8. Status post colonoscopy 11/03/2016 that showed small polyp in the sigmoid colon (removed) and no other major pathology at [facility]. Subjective: No major events or complaints; mild abd pain with bloating and under control with medications; no n/v/d; no sob or cp; + flatus; + BM; + activity Objective: Vitals: See below Exam: GENERAL: On exam, the patient was laying in bed and appeared to be comfortable and in no acute distress. ABDOMEN: Soft, mildly tender and mildly distended. There are no peritoneal signs or guarding. SKIN: Skin appears to be pink and feels warm to touch. NEUROLOGIC: Patient is awake, alert, and follows commands appropriately. Exam/Review of Systems Vital Signs Vitals Vital Signs Date Time Temp Pulse Resp B/P Pulse Ox O2 Delivery O2 Flow Rate FiO2 11/04/16 07:00 98.3 53 20 122/73 100 11/03/16 16:56 Room Air Mask 11/03/16 16:31 6.0 Intake and Output 11/03/16 11/03/16 11/04/16 15:00 23:00 07:00 Intake Total 300 ml Balance 300 ml Results Result Diagram: 11/04/16 0431 11/04/16 0431 HEMAL EMERY M.D. Nov 04, 2016 13:46
--- NOTE | 2016-11-04 15:54 | PDOCDIS ---
Discharge Instructions CONDITION Patient Condition: Stable ACTIVITY: Activity Restrictions: Slowly Increase Activity FOLLOW UP/APPOINTMENTS Follow-up Plan f/p own pcp [address] wang [address] perez 2 wks MARIANNE MONTELONGO MD Nov 04, 2016 15:54
[2016-11-04] MEDS ORDERED: PANT40TA4 PO (15:55)
[2016-11-04] MEDS ORDERED: ONDA-43 PO (15:55)
--- NOTE | 2016-11-07 08:11 | GILP ---
DATE OF PROCEDURE: 11/03/2016 PROCEDURE PERFORMED: Colonoscopy with polypectomy. INDICATION: 51-year-old female undergoing this procedure for abdominal pain and change in the configuration of the stool. Patient never had a colonoscopy. The purpose of this procedure is to evaluate the colon for any obstructing lesion. The risks of the procedure, related and unrelated complications, anesthetic risks, and alternatives discussed. Informed consent was obtained. DESCRIPTION OF PROCEDURE: The patient was brought to the GI lab, sedated by the anesthesiologist. After optimal sedation, scope was passed with much ease into the rectum. Digital examination was done which was normal. Scope was advanced all the way into the cecum. Appendiceal orifice was identified. Near the right hepatic flexure, there was a polyp 8-9 mm in diameter, successfully removed by cold snare technique. I do know whether the polyp was retrieved or not. This polyp was sessile. The lift technique was used. The scope was then gradually withdrawn. The rest of the colon appeared normal. Retroversion done. Small internal hemorrhoid identified. Scope was straightened out and with good patient tolerance. IMPRESSION: 1. 8-9 mm polyp near the hepatic flexure, successfully removed by cold snare technique. Negative all the way into cecum. 2. Internal hemorrhoids. PLAN: Stay on high-fiber diet. We will start the patient on Metamucil 1 tablespoonful with 8 ounce of liquid daily. Dictated By: Samy Harrison MD /chavez/shane /Document#: [id number] CC: Mikie Bridges MD;*End*
--- NOTE | 2016-11-08 21:52 | QN ---
Documentation Comment [id number] MARIANNE MONTELONGO MD Nov 08, 2016 21:52
== END 2016-11-04 17:50 | disposition home or self-care (01) | DRG 392 ==
LOC: E/R 19:59 → MS1 23:39 → OBSVTOIN 11-02 17:33
PROVIDERS: ADMIT Internal Medicine Nephrology; ATTEND Internal Medicine Nephrology
PROC: 0DBK8ZZ Excision of Ascending Colon, Via Natural or Artificial Opening Endoscopic (ICD-10-PCS; principal; 2016-11-03 17:30)
DX: R10.12 Left upper quadrant pain (principal); Q61.3 Polycystic kidney, unspecified; R19.4 Change in bowel habit; R11.2 Nausea with vomiting, unspecified; K76.9 Liver disease, unspecified; K29.70 Gastritis, unspecified, without bleeding; D64.9 Anemia, unspecified; K63.5 Polyp of colon; Z88.0 Allergy status to penicillin; K64.8 Other hemorrhoids
CPT/HCPCS: 36415; 74176; 80048; 80053; 83690; 85025; 96361; 96374; 96375; C9113; G0378; J0696; J1170; J2250; J2270; J2405; J3010; J7030; J7042

== ENCOUNTER 2016-11-08 12:59 | Inpatient (IN) | payer OTHER ==
[~2016-11-08] VITALS: Ht 172.7 cm; Wt 67.6 kg
[~2016-11-08 12:59] MED LIST: ONDA-43 PO; PANT40TA4 PO
--- NOTE | 2016-11-08 13:52 | ERA ---
ER Documentation Chief Complaint Date/Time DATE: 11/08/16 TIME: 13:52 Chief Complaint 12/24 abd pain with N/V x last night HPI The patient is a 51-year-old female, presenting to the ER because of recurrent abdominal pain since last night, 12/24, associated with constipation, denies aggravating or relieving factor. She was discharged from the hospital 4 days ago from the hospital, she had extensive workup including multiple CT scan, EGD that show erosive gastritis and colonoscopy polypectomy. The abdominal pain is diffuse. She denies fever, chills, neck pain, chest pain, dyspnea, complains of nausea and vomited mostly mucus. She does not smoke nor drink Past medical history: Polycystic kidney and liver disease, hypertension, internal hemorrhoids ROS All systems reviewed and are negative except as per history of present illness. Medications Home Meds Active Scripts Pantoprazole* (Protonix*) 40 Mg Tablet.dr, 40 MG PO DAILY, #20 TAB Prov:PACO ART MD 11/08/16 Polyethylene Glycol* (Miralax*) 17 Gm Powd.pack, 17 GM PO DAILY, #7 Prov:PACO ART MD 11/08/16 Ondansetron Hcl* (Zofran*) 4 Mg Tab, 4 MG PO Q4H Y for NAUSEA AND OR VOMITING for 28 Days, TAB Prov:MARIANNE MONTELONGO MD 11/04/16 Pantoprazole* (Pantoprazole*) 40 Mg Tablet.dr, 40 MG PO DAILY@06 for 28 Days Prov:MARIANNE MONTELONGO MD 11/04/16 Allergies Allergies: Coded Allergies: Penicillins (Unverified Allergy, Intermediate, 11/08/16) PMhx/Soc History of Surgery: Yes (PARTIAL HYSTERECTOMY 2011, CYST REMOVED SEPTEMBER 2015) Anesthesia Reaction: No Hx Neurological Disorder: No Hx Respiratory Disorders: No Hx Cardiac Disorders: No Hx Psychiatric Problems: No Hx Miscellaneous Medical Probl: No Hx Alcohol Use: No Hx Substance Use: No Hx Tobacco Use: No Smoking Status: Never smoker Physical Exam Vitals Vital Signs Date Time Temp Pulse Resp B/P Pulse Ox O2 Delivery O2 Flow Rate FiO2 11/08/16 17:00 72 19 119/73 98 Room Air 11/08/16 13:03 98.3 92 20 135/76 100 Physical Exam Const: No acute distress. Head: Atraumatic. Eyes: Normal Conjunctiva. ENT: Normal External Ears, Nose and Mouth. Neck: Full range of motion. No meningismus. Resp: Clear to auscultation bilaterally. Cardio: Regular rate and rhythm. Abd: Soft, non distended, normal bowel sounds, vague and diffuse abdominal tenderness, no rigidity, rebound, CVA tenderness Skin: No petechiae or rashes. Back: No midline or flank tenderness. Ext: No cyanosis, or edema. Neur: Awake and alert. No focal deficit Psych: Normal Mood and Affect. Result Diagram: 11/08/16 1415 11/08/16 1415 Results 24 hrs Laboratory Tests Test 11/08/16 14:15 11/08/16 15:57 White Blood Count 5.710^3/ul Red Blood Count 3.4010^6/ul Hemoglobin 10.2g/dl Hematocrit 30.2% Mean Corpuscular Volume 88.8fl Mean Corpuscular Hemoglobin 30.0pg Mean Corpuscular Hemoglobin Concent 33.8g/dl Red Cell Distribution Width 12.1% Platelet Count 30747^3/UL Mean Platelet Volume 10.3fl Neutrophils % 70.7% Lymphocytes % 22.3% Monocytes % 5.9% Eosinophils % 0.3% Basophils % 0.3% Nucleated Red Blood Cells % 0.0/100WBC Neutrophils # 4.010^3/ul Lymphocytes # 1.310^3/ul Monocytes # 0.310^3/ul Eosinophils # 0.010^3/ul Basophils # 0.010^3/ul Nucleated Red Blood Cells # 0.010^3/ul Sodium Level 144mmol/L Potassium Level 4.0mmol/L Chloride Level 104mmol/L Carbon Dioxide Level 25mmol/L Anion Gap 19 Blood Urea Nitrogen 11mg/dl Creatinine 0.71mg/dl Glucose Level 98mg/dl Calcium Level 9.4mg/dl Total Bilirubin 0.7mg/dl Direct Bilirubin 0.00mg/dl Indirect Bilirubin 0.7mg/dl Aspartate Amino Transf (AST/SGOT) 22IU/L Alanine Aminotransferase (ALT/SGPT) 21IU/L Alkaline Phosphatase 61IU/L Total Protein 8.1g/dl Albumin 4.0g/dl Globulin 4.10g/dl Albumin/Globulin Ratio 0.97 Lipase 134U/L Bedside Urine pH (LAB) 6.0 Bedside Urine Protein (LAB) 2+ Bedside Urine Glucose (UA) Negative Bedside Urine Ketones (LAB) 4+ Bedside Urine Blood 2+ Bedside Urine Nitrite (LAB) Negative Bedside Urine Leukocyte Esterase (L Negative Current Medications Medications (Trade) Dose Ordered Sig/Olena Route PRN Reason Start Time Stop Time Status Last Admin Dose Admin Sodium Chloride (NS) 1,000 ml @ 1,000 mls/hr Q1H ONCE IV 11/08/16 15:00 11/08/16 15:59 DC 11/08/16 14:59 Morphine Sulfate (morphine) 4 mg ONCE STAT IV 11/08/16 14:44 11/08/16 14:46 DC 11/08/16 14:59 Ondansetron HCl (Zofran Inj) 4 mg ONCE STAT IV 11/08/16 14:44 11/08/16 14:46 DC 11/08/16 14:58 Pantoprazole (Protonix Iv) 40 mg ONCE ONCE IV 11/08/16 15:00 11/08/16 15:01 DC 11/08/16 14:59 Procedures/MDM MEDICAL MAKING DECISION: The patient is a 51-year-old female, presenting with acute on chronic abdominal pain, most likely due to erosive gastritis and constipation. She was treated with morphine 4 mg IV for pain, Zofran 4 mg IV for nausea and Protonix 40 mg IV for gastritis and 1 L normal saline for clinical dehydration with good response. She does not feel comfortable going home as she wants to be admitted The differential diagnoses considered include but are not limited to cholelithiasis, cholecystitis, cystitis, pancreatitis, hepatitis, gastritis, peptic ulcer disease, gastric ulcer, appendicitis, diverticulitis, cholangitis, choledocholithiasis, partial small bowel obstruction. Departure Diagnosis: Primary Impression: Abdominal pain Additional Impression: Constipation Condition: Stable Comments I discussed the findings with the patient. I discussed the patient with her physician Dr. Montelongo who was made aware of the lab, the treatment, the patient condition. The patient is admitted to [place] 24 hour obs PACO ART MD Nov 08, 2016 13:52
[2016-11-08 14:27] LABS: BASOPHILS % 0.3 % (0.0-2.0); EOSINOPHILS % 0.3 % (0.0-7.0); HEMATOCRIT 30.2 % (37.0-47.0); HEMOGLOBIN 10.2 g/dl (12.0-16.0); LYMPHOCYTES # 1.3 10^3/ul (0.8-2.9); LYMPHOCYTES % 22.3 % (15.0-51.0); MEAN CORPUSCULAR HGB CONC 33.8 g/dl (32.0-37.0); MEAN CORPUSCULAR VOLUME 88.8 fl (82.0-101.0); MEAN PLATELET VOLUME 10.3 fl (7.4-10.4); MONOCYTE # 0.3 10^3/ul (0.3-0.9); MONOCYTES % 5.9 % (0.0-11.0); NEUTROPHILS % 70.7 % (39.0-77.0); PLATELET COUNT 211 10^3/UL (140-415); RED CELL DISTRIBUTION WIDTH 12.1 % (11.5-14.5); WHITE BLOOD COUNT 5.7 10^3/ul (4.8-10.8)
[2016-11-08] MEDS ORDERED: ONDANSETRON 4 MG INJ IV STA (14:44)
[2016-11-08] MEDS ORDERED: morphine 4 MG/ML VIAL IV STA (14:44)
[2016-11-08 14:45] LABS: ALBUMIN/GLOBULIN RATIO 0.97; BILIRUBIN,INDIRECT 0.7 mg/dl (0-1.1); BILIRUBIN,TOTAL 0.7 mg/dl (0.2-1.3); CALCIUM 9.4 mg/dl (8.4-10.2); CREATININE 0.71 mg/dl (0.44-1.00); TOTAL PROTEIN 8.1 g/dl (6.1-8.1)
[2016-11-08] MEDS ORDERED: SOD CHLORIDE 0.9% 1,000 ML IV ONE (15:00)
[2016-11-08] MEDS ORDERED: PANTOPRAZOLE 40 MG INJ IV ONE (15:00)
[2016-11-08 15:54] LABS: URINE BLOOD (Dip) POC 2+ (NEGATIVE)
[2016-11-08] MEDS ORDERED: POLY17PO6 PO (16:08)
[2016-11-08] MEDS ORDERED: PANT40TA3 PO (16:09)
[2016-11-08 18:26] VITALS: BP 143/93; PULSE 68; RESP 18
[2016-11-08 18:29] VITALS: Ht 172.7 cm; Wt 67.6 kg
[2016-11-08] MEDS ORDERED: HYDROCODONE/APAP (5/325) TAB PO PRN (18:30)
[2016-11-08] MEDS ORDERED: MAGNESIUM HYDROXIDE 30ML CUP PO PRN (18:30)
[2016-11-08] MEDS ORDERED: ONDANSETRON 4 MG TAB PO PRN (18:30)
[2016-11-08] MEDS ORDERED: DOCUSATE SODIUM 100 MG CAP PO PRN (18:30)
[2016-11-08] MEDS ORDERED: ACETAMINOPHEN 325 MG TAB PO PRN (18:30)
[2016-11-08] MEDS ORDERED: ACETAMINOPHEN 650 MG SUPP PR PRN (18:30)
[2016-11-08] MEDS ORDERED: NACL 0.9% 3 ML SYG IV SCH (18:30)
[2016-11-08] MEDS ORDERED: DICYCLOMINE 10 MG CAP PO PRN (19:00)
[2016-11-08 19:51] VITALS: BP 115/55; RESP 18
[2016-11-08] MEDS: DEXTROSE 5%-0.45% NACL 1,000 ML IV SCH (20:15)
--- NOTE | 2016-11-08 21:49 | QN ---
Documentation Comment [id number] MARIANNE MONTELONGO MD Nov 08, 2016 21:49
[2016-11-09 02:09] VITALS: BP 105/48; RESP 18
[2016-11-09] MEDS: PANTOPRAZOLE (EC) 40 MG TAB PO SCH (05:48)
[2016-11-09] MEDS ORDERED: [UNRECOGNIZED DRUG - REMARK] XX SCH (07:30)
[2016-11-09 08:00] VITALS: BP 118/70; RESP 18
[2016-11-09] MEDS ORDERED: SPECIAL NON-STANDARD MEDICATION PO SCH (09:00)
[2016-11-09] MEDS: POLYETHYLENE GLYCOL 17 GM PACKET PO SCH (09:04)
[2016-11-09] MEDS: DEXTROSE 5%-0.45% NACL 1,000 ML IV SCH ×2 (11:08→17:30)
--- NOTE | 2016-11-09 12:47 | CONS ---
Date/Time of Note Date/Time of Note DATE: 11/09/16 TIME: 12:47 Assessment/Plan Assessment/Plan Additional Assessment/Plan [facility] INITIAL INPATIENT CONSULTATION NOTE DATE: 11/09/2016 PLACE OF SERVICE: [facility] second floor East ASSESSMENT AND PLAN: Ongoing issues with abdominal pain and nausea and vomiting without obvious surgical source. Likely medical in nature, but I am a bit concerned about the lack of adequate oral intake and possibility of partial small bowel obstruction still remains in the background. Discussed with Dr. Harrison. We both agreed that the patient can benefit from upper GI with small bowel follow-through to further delineate. No indication for acute surgical intervention, but if the above study show evidence for partial bowel obstruction , then I would change course and recommend laparoscopic versus open exploration of the abdominal cavity. Explained to patient (no family present) and answered all of her questions. With above assessment, I recommended the followin. Keep inhouse 2. Advance diet to regular as tolerated 3. GI consult 4. Symptom control 5. Strict I's and O's 6. Bowel regimen from below only 7. Labs in am 8. Upper GI with small bowel follow-through Thank you again for allowing us to participate in the care of this very pleasant lady and her wonderful family. If there are any questions, please feel free to call me at [phone]. Updated Clinical Summary: The patient is a very pleasant 49-year-old young lady with symptomatic polycystic kidney and liver disease with abdominal pain and decreased oral intake. Status post laparoscopic cyst unroofing (multiple) 09/24/2015 as an outpatient. Readmission to [facility] for partial SBO September 2016. Possible UTI, and later in the hospitalization, slight elevation in amylase and lipase. S/p EGD at [facility] by Dr. Harrison: Erosive gastritis, sub-endothelial 2 cm lesion in the duodenal bulb, normal duodenum, normal Z line at 38 cm, normal esophagus. Readmitted [facility] for abd pain, nausea and vomiting 10/31/16. Status post colonoscopy 11/03/2016 that showed small polyp in the sigmoid colon (removed) and no other major pathology. Discharge home 11/04/2016. Comorbidities: 1. BMI 29.5 2. Polycystic kidney and liver disease discovered in the summer 3. S/p laparoscopic cyst unroofing (multiple) 09/24/2015 as an outpatient at [facility] through [facility] 4. S/p partial hysterectomy in 2010 5. S/p EGD at [facility] by Dr. Harrison ( Erosive gastritis, sub-endothelial 2 cm lesion in the duodenal bulb, normal duodenum, normal Z line at 38 cm, normal esophagus) 6. Erosive gastritis 7. Sub-endothelial 2 cm lesion in the duodenal bulb 8. Status post colonoscopy 11/03/2016 that showed small polyp in the sigmoid colon (removed) and no other major pathology at [facility]. HISTORY OF PRESENT ILLNESS: The patient is a very pleasant 51-year-old lady well known to me since June 2014, with multiple recent admissions, readmitted through ED at [facility] 11/08/16 for essentially similar symptoms as the last few admissions with abdominal pain 9 out of 10 at its worse associated with nausea and vomiting without any blood in the emesis. Patient does describe being only able to eat small amounts (had one in again for blueberries on Sunday) and then the next day throughout the same food that she had eaten the day before. Reports not being able to eat regular meals or even tolerate significant amounts of liquids. No fevers or chills, no chest pain or shortness of breath. No diarrhea or constipation. Recent colonoscopy showed no obvious pathology in the colon. She also had recent endoscopic evaluation to her 3 admissions ago and again showing no significant pathology. No other major complaints during my visit. ALLERGIES: PCN HOME MEDICATIONS: See EHR SOCIAL HISTORY: The patient was born in [place], [place]. She is and has 2 children. 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 She does not report any smoking. Has social type drinking and no intravenous drug use. FAMILY HISTORY: There is no family history of polycystic liver or kidney disease that is known. There is also no major medical or malignant processes in the family that is noted by the patient or noted in the chart. REVIEW OF SYSTEMS: Other than the above-mentioned, there are no other pertinent positives or pertinent negatives in a complete 14-point review of systems. PHYSICAL EXAMINATION GENERAL: The patient appears to be a very pleasant -[place] lady of non - descent, appearing stated age, quite fit and not cachectic, laying in bed comfortably and in no acute distress. VITAL SIGNS: BMI 22.7 (previously 21.6 and 29.5 summer 2016). AVSS. HEENT: Her head is normocephalic and atraumatic. Her extraocular muscles and hearing are grossly intact bilaterally and symmetrically. Her sclerae are nonicteric. Her oral cavity is clear and her oral mucosa appeared to be pink and moist. She has good dentition. NECK: Supple. There is no lymphadenopathy or JVD. There is no submental, submandibular or supraclavicular lymphadenopathy. CHEST: Her chest rises symmetrically with each breath and she is breathing comfortably. There are no audible wheezes, rales or rhonchi on the gross exam. Her pulse is regular and palpable on the left wrist. Carotid pulses are palpable bilaterally and symmetrically in her neck. Capillary refill is normal. EXTREMITIES: Her lower extremities contain no pitting edema bilaterally and symmetrically. ABDOMEN: Soft, nondistended and nontender. Incisions c/d/i w/o any evidence for e/e/d/h. There are no peritoneal signs or guarding. SKIN: Appears to be pink and feels warm to touch. NEUROLOGIC: She is awake, alert, and follows commands appropriately. LABORATORY DATA: See EHR IMAGING: [facility] abd/pelvis CT 10/31/16 IMPRESSION: 1. Mild dilatation of fluid-filled distal small bowel is similar to the study of 10/05/2016 and concerning for ileus or enteritis pattern without complete bowel obstruction. Consider follow-up evaluation 2. Small amount of dependent pelvic free fluid slightly increased compared to prior exam. 3. Hepatomegaly from polycystic disease is again noted. 4. Nephromegaly from of polycystic kidney disease again seen with a stable nonobstructing 2 mm lower pole renal calculus and some proteinaceous or hemorrhagic material within a few of the left renal cysts. 5. Incidental calcified leiomyoma. 6. New left pleural effusion with tiny right pleural effusion and increased bibasilar atelectasis. CT abd/pelvis done 10/05/16 with comparison to 08/19/15 IMPRESSION: 1. Findings consistent with polycystic kidney disease again seen which has not changed significantly. 2. Small amount of free fluid. 3. Mildly distended and fluid-filled distal small bowel which may represent an ileus. 4. 2 mm non-obstructing left renal calculus. Previously, the patient had an ultrasound of the right upper quadrant on 2013 that showed changes consistent with polycystic kidneys as well as enumerable cysts in the liver. Gallbladder was not visualized. A CT scan done on the same day showed extensive and numerous hepatic cysts throughout the liver resulting in moderate to severe hepatomegaly. There were no focal hepatic masses or intrahepatic biliary dilatation. The spleen was normal in size and homogeneous. The stomach was partially collapsed and is grossly unremarkable. Note that I reviewed both of all available pertinent images in person and I agree in general with their overall findings. As demonstrated previously, most of the disease is still spread fairly uniformly throughout the liver, although in the segments 7 and 8 of the liver there seems to be more collection of larger cysts than the rest of the liver. Consultation Date/Type/Reason Admit Date/Time Nov 08, 2016 at 17:30 Cardiovascular: chest pain Past Surgical History Past Surgical Hx: other Social History Smoking Status: Never smoker Exam/Review of Systems Vital Signs Vitals Vital Signs Date Time Temp Pulse Resp B/P Pulse Ox O2 Delivery O2 Flow Rate FiO2 11/09/16 08:00 97.8 80 18 118/70 98 11/08/16 17:00 Room Air Intake and Output 11/08/16 11/08/16 11/09/16 15:00 23:00 07:00 Intake Total 840 ml Output Total 3 ml Balance 837 ml Results Result Diagram: 11/08/16 1415 11/08/16 1415 Results 24 hrs Laboratory Tests Test 11/08/16 14:15 11/08/16 15:57 White Blood Count 5.7 # Red Blood Count 3.40 L Hemoglobin 10.2 L Hematocrit 30.2 L Mean Corpuscular Volume 88.8 Mean Corpuscular Hemoglobin 30.0 Mean Corpuscular Hemoglobin Concent 33.8 Red Cell Distribution Width 12.1 Platelet Count 211 Mean Platelet Volume 10.3 Neutrophils % 70.7 Lymphocytes % 22.3 Monocytes % 5.9 Eosinophils % 0.3 Basophils % 0.3 Nucleated Red Blood Cells % 0.0 Neutrophils # 4.0 Lymphocytes # 1.3 Monocytes # 0.3 Eosinophils # 0.0 Basophils # 0.0 Nucleated Red Blood Cells # 0.0 Sodium Level 144 Potassium Level 4.0 Chloride Level 104 Carbon Dioxide Level 25 Anion Gap 19 H Blood Urea Nitrogen 11 Creatinine 0.71 Glucose Level 98 Calcium Level 9.4 Total Bilirubin 0.7 Direct Bilirubin 0.00 Indirect Bilirubin 0.7 Aspartate Amino Transf (AST/SGOT) 22 Alanine Aminotransferase (ALT/SGPT) 21 Alkaline Phosphatase 61 Total Protein 8.1 Albumin 4.0 Globulin 4.10 H Albumin/Globulin Ratio 0.97 Lipase 134 Bedside Urine pH (LAB) 6.0 Bedside Urine Protein (LAB) 2+ H Bedside Urine Glucose (UA) Negative Bedside Urine Ketones (LAB) 4+ H Bedside Urine Blood 2+ H Bedside Urine Nitrite (LAB) Negative Bedside Urine Leukocyte Esterase (L Negative Medications Medications Current Medications Ondansetron HCl (Zofran Tab) 4 mg Q4H PRN PO NAUSEA AND/OR VOMITING; Start at 18:30 Pantoprazole (Protonix Tab) 40 mg DAILY@06 PO Last administered on 11/09/16 05 :48; Admin Dose 40 MG; Start 11/09/16 at 06:00 Polyethylene Glycol 17 gm 17 gm DAILY PO Last administered on 11/09/16 09:04; Admin Dose 17 GM; Start 11/09/16 at 09:00 Dextrose/Sodium Chloride (D5-1/2ns) 1,000 ml @ 60 mls/hr [id number] IV Last administered on 11/08/16 20:15; Admin Dose 60 MLS/HR; Start 11/08/16 at 18:28 Ondansetron HCl (Zofran Inj) 4 mg Q6H PRN IV NAUSEA AND/OR VOMITING; Start at 18:30 Acetaminophen (Tylenol Tab) 650 mg Q6H PRN PO PAIN LEVEL 1-3 OR FEVER; Start at 18:30 Acetaminophen (Tylenol Supp) 650 mg Q6H PRN [place] PAIN LEVEL 1-3 OR FEVER; Start 11/08/16 at 18:30 Acetaminophen/ Hydrocodone Bitart ([place] (5/325)) 1 tab Q6H PRN PO MODERATE PAIN LEVEL 4-6; Start 11/08/16 at 18:30 Morphine Sulfate (morphine) 2 mg Q4H PRN IV SEVERE PAIN LEVEL 7-10; Start 11/08 at 18:30 Docusate Sodium (Colace) 100 mg Q12H PRN PO CONSTIPATION; Start 11/08/16 at 18: 30 Magnesium Hydroxide (Milk Of Mag) 30 ml DAILY PRN PO CONSTIPATION; Start at 18:30 Dicyclomine HCl (Bentyl) 10 mg BID PRN PO abdominal cramps ; Start 11/08/16 at 19:00 Non-Formulary Medication 1 ea DAILY PO ; Start 11/09/16 at 09:00; Status UNV Miscellaneous Information (*Order Clarification Bulletin) MEDICATION REQUIRES CLARIFICATI... Q8H XX ; Start 11/09/16 at 07:30 HEMAL EMERY M.D. Nov 09, 2016 12:47
[2016-11-09 14:00] VITALS: BP 138/76; RESP 20
[2016-11-09] MEDS: morphine 2 MG INJ IV PRN ×2 (15:04→19:34)
--- NOTE | 2016-11-09 18:10 | CONS ---
Date/Time of Note Date/Time of Note DATE: 11/09/16 TIME: 18:07 Assessment/Plan Assessment/Plan Additional Assessment/Plan 1. Abdominal pain crampy in nature 2. Acid reflux 3. Constipation 4. Polycystic kidney disease Plan Small bowel follow-through to make sure there is no small bowel lesion. Patient needs EUS for subendothelial lesion in the duodenal bulb Antispasmodic medication Amitiza I would prefer Linzess but it is not in the formulary Consultation Date/Type/Reason Admit Date/Time Nov 08, 2016 at 17:30 Reason for Consultation Abdominal pain and constipation Hx of Present Illness 51-year-old female with history of polycystic kidney disease got readmitted to the hospital complaining of abdominal pain confined to the epigastric area and lower abdomen and also acid reflux disease. Patient is also constipated. No GI bleeding no weight loss no fever no chills. She had a EGD which revealed erosive gastritis and on colonoscopy polyp was removed. CT scan was grossly negative. Patient had a liver cyst is removed a few months ago. Cardiovascular: chest pain Past Surgical History Past Surgical Hx: other Social History Smoking Status: Never smoker Exam/Review of Systems Vital Signs Vitals Vital Signs Date Time Temp Pulse Resp B/P Pulse Ox O2 Delivery O2 Flow Rate FiO2 11/09/16 14:00 98.8 76 20 138/76 98 11/08/16 17:00 Room Air Intake and Output 11/08/16 11/08/16 11/09/16 15:00 23:00 07:00 Intake Total 840 ml Output Total 3 ml Balance 837 ml Exam Constitutional: alert, oriented, well developed Psych: nl mood/affect, no complaints Head: atraumatic, normocephalic Eyes: EOMI, PERRL, nl conjunctiva, nl lids, nl sclera ENMT: nl external ears & nose, nl lips & teeth, nl nasal mucosa & septum Neck: non-tender, supple Respiratory: clear to auscultation, normal air movement Cardiovascular: nl pulses, regular rate and rhythm Gastrointestinal: nl liver, spleen, non-tender, soft Musculoskeletal: nl extremities to inspection, nl gait and stance Extremities: normal pulses 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, nl mental status, nl speech, nl strength Skin: nl turgor, No rash or lesions Lymph: nl lymph nodes Results Result Diagram: 11/08/16 1415 11/08/16 1415 Medications Medications Current Medications Ondansetron HCl (Zofran Tab) 4 mg Q4H PRN PO NAUSEA AND/OR VOMITING; Start at 18:30 Pantoprazole (Protonix Tab) 40 mg DAILY@06 PO Last administered on 11/09/16 05 :48; Admin Dose 40 MG; Start 11/09/16 at 06:00 Polyethylene Glycol 17 gm 17 gm DAILY PO Last administered on 11/09/16 09:04; Admin Dose 17 GM; Start 11/09/16 at 09:00 Dextrose/Sodium Chloride (D5-1/2ns) 1,000 ml @ 60 mls/hr [id number] IV Last administered on 11/09/16 17:30; Admin Dose 60 MLS/HR; Start 11/08/16 at 18:28 Ondansetron HCl (Zofran Inj) 4 mg Q6H PRN IV NAUSEA AND/OR VOMITING; Start at 18:30 Acetaminophen (Tylenol Tab) 650 mg Q6H PRN PO PAIN LEVEL 1-3 OR FEVER; Start at 18:30 Acetaminophen (Tylenol Supp) 650 mg Q6H PRN [place] PAIN LEVEL 1-3 OR FEVER; Start 11/08/16 at 18:30 Acetaminophen/ Hydrocodone Bitart ([place] (5/325)) 1 tab Q6H PRN PO MODERATE PAIN LEVEL 4-6; Start 11/08/16 at 18:30 Morphine Sulfate (morphine) 2 mg Q4H PRN IV SEVERE PAIN LEVEL 7-10 Last administered on 11/09/16 15:04; Admin Dose 2 MG; Start 11/08/16 at 18:30 Docusate Sodium (Colace) 100 mg Q12H PRN PO CONSTIPATION; Start 11/08/16 at 18: 30 Magnesium Hydroxide (Milk Of Mag) 30 ml DAILY PRN PO CONSTIPATION; Start at 18:30 Dicyclomine HCl (Bentyl) 10 mg BID PRN PO abdominal cramps ; Start 11/08/16 at 19:00 OBED SEARS MD Nov 09, 2016 18:10
[2016-11-09 19:55] VITALS: BP 115/70; RESP 16
--- NOTE | 2016-11-09 20:07 | PN ---
Date/Time of Note Date/Time of Note DATE: 11/09/16 TIME: 20:06 Assessment/Plan VTE Prophylaxis VTE Prophylaxis Intervention: other Lines/Catheters IV Catheter Type (from Nrsg): Peripheral IV Assessment/Plan Chief Complaint/Hosp Course A/P ABD PAIN POSS GERD PKD LIVER CYSTS PLAN PER GI AND SURGERY Problems: Subjective 24 Hr Interval Summary Respiratory: no complaints Cardiovascular: no complaints Gastrointestinal: pain (+) Exam/Review of Systems Vital Signs Vitals Vital Signs Date Time Temp Pulse Resp B/P Pulse Ox O2 Delivery O2 Flow Rate FiO2 11/09/16 14:00 98.8 76 20 138/76 98 11/08/16 17:00 Room Air Intake and Output 11/08/16 11/08/16 11/09/16 15:00 23:00 07:00 Intake Total 840 ml Output Total 3 ml Balance 837 ml Exam Neck: supple Respiratory: clear to auscultation Cardiovascular: regular rate and rhythm Gastrointestinal: soft Musculoskeletal: nl extremities to inspection Extremities: normal pulses Results Result Diagram: 11/08/16 1415 11/08/16 1415 Medications Medications Current Medications Ondansetron HCl (Zofran Tab) 4 mg Q4H PRN PO NAUSEA AND/OR VOMITING; Start at 18:30 Pantoprazole (Protonix Tab) 40 mg DAILY@06 PO Last administered on 11/09/16 05 :48; Admin Dose 40 MG; Start 11/09/16 at 06:00 Polyethylene Glycol 17 gm 17 gm DAILY PO Last administered on 11/09/16 09:04; Admin Dose 17 GM; Start 11/09/16 at 09:00 Dextrose/Sodium Chloride (D5-1/2ns) 1,000 ml @ 60 mls/hr [id number] IV Last administered on 11/09/16 17:30; Admin Dose 60 MLS/HR; Start 11/08/16 at 18:28 Ondansetron HCl (Zofran Inj) 4 mg Q6H PRN IV NAUSEA AND/OR VOMITING; Start at 18:30 Acetaminophen (Tylenol Tab) 650 mg Q6H PRN PO PAIN LEVEL 1-3 OR FEVER; Start at 18:30 Acetaminophen (Tylenol Supp) 650 mg Q6H PRN [place] PAIN LEVEL 1-3 OR FEVER; Start 11/08/16 at 18:30 Acetaminophen/ Hydrocodone Bitart ([place] (5/325)) 1 tab Q6H PRN PO MODERATE PAIN LEVEL 4-6; Start 11/08/16 at 18:30 Morphine Sulfate (morphine) 2 mg Q4H PRN IV SEVERE PAIN LEVEL 7-10 Last administered on 11/09/16t 19:34; Admin Dose 2 MG; Start 11/08/16 at 18:30 Docusate Sodium (Colace) 100 mg Q12H PRN PO CONSTIPATION; Start 11/08/16 at 18: 30 Magnesium Hydroxide (Milk Of Mag) 30 ml DAILY PRN PO CONSTIPATION; Start at 18:30 Dicyclomine HCl (Bentyl) 10 mg BID PRN PO abdominal cramps ; Start 11/08/16 at 19:00 Lubiprostone (Amitiza) 24 mcg BID PO ; Start 11/09/16 at 21:00 Dicyclomine HCl (Bentyl) 20 mg Q8 PO ; Start 11/09/16 at 22:00 MARIANNE MONTELONGO MD Nov 09, 2016 20:07
[2016-11-09] MEDS: LUBIPROSTONE 24 MCG CAP PO SCH (21:00)
[2016-11-09] MEDS: DOCUSATE SODIUM 100 MG CAP PO PRN (21:09)
[2016-11-09] MEDS: DICYCLOMINE 10 MG CAP PO SCH (21:10)
[2016-11-10 02:20] VITALS: BP 95/54; RESP 18
[2016-11-10] MEDS: DEXTROSE 5%-0.45% NACL 1,000 ML IV SCH ×2 (03:26→20:28)
[2016-11-10 04:00] VITALS: BP 122/62; PULSE 72
[2016-11-10] MEDS: PANTOPRAZOLE (EC) 40 MG TAB PO SCH (05:09)
[2016-11-10] MEDS: DICYCLOMINE 10 MG CAP PO SCH ×3 (05:09→21:34)
[2016-11-10 07:50] VITALS: BP 121/74; RESP 16
[2016-11-10] MEDS ORDERED: DIATR MEGLU/DIATRIZOATE SODIUM 120 ML BTL ONE (08:36)
[2016-11-10] MEDS: POLYETHYLENE GLYCOL 17 GM PACKET PO SCH (09:00)
[2016-11-10] MEDS: LUBIPROSTONE 24 MCG CAP PO SCH ×2 (09:00→21:34)
--- NOTE | 2016-11-10 12:18 | CONS ---
Date/Time of Note Date/Time of Note DATE: 11/10/16 TIME: 12:17 Assessment/Plan Assessment/Plan Chief Complaint/Hosp Course 51-year-old female with history of polycystic kidney disease got readmitted to the hospital complaining of abdominal pain confined to the epigastric area and lower abdomen and also acid reflux disease. Patient is also constipated. No GI bleeding no weight loss no fever no chills. She had a EGD which revealed erosive gastritis and on colonoscopy polyp was removed. CT scan was grossly negative. Patient had a liver cyst is removed a few months ago. Problems: Additional Assessment/Plan Additional Assessment/Plan 1. Abdominal pain crampy in nature, 2. Acid reflux 3. Constipation 4. Polycystic kidney disease Plan Small bowel follow-through to make sure there is no small bowel lesion. Still in process Patient needs EUS for subendothelial lesion in the duodenal bulb Antispasmodic medication Amitiza I would prefer Linzess but it is not in the formulary Consultation Date/Type/Reason Admit Date/Time Nov 09, 2016 at 22:17 Initial Consult Date 24 HR Interval Summary Free Text/Dictation Patient is ambulating but still complains of crampy abdominal pain Exam/Review of Systems Vital Signs Vitals Vital Signs Date Time Temp Pulse Resp B/P Pulse Ox O2 Delivery O2 Flow Rate FiO2 11/10/16 07:50 98.1 55 16 121/74 98 11/08/16 17:00 Room Air Intake and Output 11/09/16 11/09/16 11/10/16 15:00 23:00 07:00 Intake Total 1420 ml 820 ml Output Total 3 ml 2 ml Balance 1417 ml 818 ml Exam Constitutional: alert, oriented, well developed Psych: nl mood/affect, no complaints Head: atraumatic, normocephalic Eyes: EOMI, PERRL, nl conjunctiva, nl lids, nl sclera ENMT: nl external ears & nose, nl lips & teeth, nl nasal mucosa & septum Neck: non-tender, supple Respiratory: clear to auscultation, normal air movement Cardiovascular: nl pulses, regular rate and rhythm Gastrointestinal: nl liver, spleen, non-tender, soft Musculoskeletal: nl extremities to inspection, nl gait and stance Extremities: normal pulses Neurological: SAUSAGE INSPECTOR II-XII intact, nl mental status, nl speech, nl strength Skin: nl turgor, No rash or lesions Lymph: nl lymph nodes Results Result Diagram: 11/08/16 1415 11/08/16 1415 Medications Medications Current Medications Ondansetron HCl (Zofran Tab) 4 mg Q4H PRN PO NAUSEA AND/OR VOMITING; Start at 18:30 Pantoprazole (Protonix Tab) 40 mg DAILY@06 PO Last administered on 11/09/16 05 :48; Admin Dose 40 MG; Start 11/09/16 at 06:00 Polyethylene Glycol 17 gm 17 gm DAILY PO Last administered on 11/09/16 09:04; Admin Dose 17 GM; Start 11/09/16 at 09:00 Dextrose/Sodium Chloride (D5-1/2ns) 1,000 ml @ 60 mls/hr [id number] IV Last administered on 11/09/16 17:30; Admin Dose 60 MLS/HR; Start 11/08/16 at 18:28 Ondansetron HCl (Zofran Inj) 4 mg Q6H PRN IV NAUSEA AND/OR VOMITING; Start at 18:30 Acetaminophen (Tylenol Tab) 650 mg Q6H PRN PO PAIN LEVEL 1-3 OR FEVER; Start at 18:30 Acetaminophen (Tylenol Supp) 650 mg Q6H PRN [place] PAIN LEVEL 1-3 OR FEVER; Start 11/08/16 at 18:30 Acetaminophen/ Hydrocodone Bitart (Fisher (5/325)) 1 tab Q6H PRN PO MODERATE PAIN LEVEL 4-6; Start 11/08/16 at 18:30 Morphine Sulfate (morphine) 2 mg Q4H PRN IV SEVERE PAIN LEVEL 7-10 Last administered on 11/09/16 19:34; Admin Dose 2 MG; Start 11/08/16 at 18:30 Magnesium Hydroxide (Milk Of Mag) 30 ml DAILY PRN PO CONSTIPATION; Start at 18:30 Dicyclomine HCl (Bentyl) 10 mg BID PRN PO abdominal cramps ; Start 11/08/16 at 19:00 Lubiprostone (Amitiza) 24 mcg BID PO ; Start 11/09/16 at 21:00 Dicyclomine HCl (Bentyl) 20 mg Q8 PO Last administered on 11/09/16 21:10; Admin Dose 20 MG; Start 11/09/16 at 22:00 Docusate Sodium (Colace) 100 mg BID PRN PO CONSTIPATION Last administered on t 21:09; Admin Dose 100 MG; Start 11/09/16 at 21:00 OBED SEARS MD Nov 10, 2016 12:18
--- NOTE | 2016-11-10 14:04 | RADRPT ---
PROCEDURE: Upper GI series. CLINICAL INDICATION: Abdomen pain. TECHNIQUE: Gastrographin was administered orally and several spot and overhead radiographs were ob tained. A total of 0.4 minutes of fluoroscopy time was used. 20 images were obtained. COMPARISON: No prior study is available for comparison. FINDINGS: There is no aspiration. Esophageal motility is normal. There is no esophageal mass, ulcer, or stricture. There is no gastroesophageal reflux. The stomach and duodenum are normal with no ulceration, mass, or other abnormality. IMPRESSION: 1. Normal water-soluble contrast upper GI series. RPTAT: QQ .Augustine Calvo MD, MD Date Time Electronically viewed and signed by .Augustine Calvo MD, on 11/10/2016 14:04 .R/
[2016-11-10 14:21] VITALS: BP 142/79; RESP 18
--- NOTE | 2016-11-10 14:21 | PN ---
Date/Time of Note Date/Time of Note DATE: 11/10/16 TIME: 14:20 Assessment/Plan Lines/Catheters IV Catheter Type (from Nrsg): Peripheral IV Assessment/Plan Assessment/Plan [facility] Progress Note Date of Service: 11/10/2016 Place of service: [facility] second floor [facility] Today's Assessment & Plan: Overall stable but with ongoing issues with nausea and vomiting, particularly with contrast. Upper GI with small bowel follow-through ongoing. No indication for acute surgical intervention. With above assessment, I've recommended the following for today: 1. Continue above cares 2. Keep in-house 3. Multidisciplinary discussion 4. Possible need for exploratory laparoscopy if no other medical reasons found for patient's symptoms Thank you again for your great care of this very pleasant patient and wonderful family. If there are any questions, please feel free to call me at [phone]. Nature of presenting problem: Moderate to high severity Please note that, given the multiple number of diagnoses or management options, the moderate amount and/or complexity of data needed to be reviewed, and moderate to high risk of complications and/or morbidity or mortality, this qualifies as moderate to high complexity type of decision-making. Disclaimer: Inadvertent spelling and grammatical errors are likely due to EHR/ dictation software use and do not reflect on the quality of delivered patient care. Also, please note that the electronic time recorded on this node does not necessarily reflect the actual time of the visit. Updated Clinical Summary: The patient is a very pleasant 49-year-old young lady with symptomatic polycystic kidney and liver disease with abdominal pain and decreased oral intake. Status post laparoscopic cyst unroofing (multiple) 09/24/2015 as an outpatient. Readmission to [facility] for partial SBO September 2016. Possible UTI, and later in the hospitalization, slight elevation in amylase and lipase. S/p EGD at [facility] by Dr. Harrison: Erosive gastritis, sub-endothelial 2 cm lesion in the duodenal bulb, normal duodenum, normal Z line at 38 cm, normal esophagus. Readmitted [facility] for abd pain, nausea and vomiting 10/31/16. Status post colonoscopy 11/03/2016 that showed small polyp in the sigmoid colon (removed) and no other major pathology. Discharge home 11/04/2016. Comorbidities: 1. BMI 29.5 2. Polycystic kidney and liver disease discovered in the summer of 2013 3. S/p laparoscopic cyst unroofing (multiple) 09/24/2015 as an outpatient at [facility] through [facility] 4. S/p partial hysterectomy in 2010 5. S/p EGD at [facility] by Dr. Harrison ( Erosive gastritis, sub-endothelial 2 cm lesion in the duodenal bulb, normal duodenum, normal Z line at 38 cm, normal esophagus) 6. Erosive gastritis 7. Sub-endothelial 2 cm lesion in the duodenal bulb 8. Status post colonoscopy 11/03/2016 that showed small polyp in the sigmoid colon (removed) and no other major pathology at [facility]. Subjective: No major events or complaints, but with ongoing issues with nausea and vomiting , particularly with contrast material use for upper GI with small bowel follow- through; mild abd pain and under control with medications; + n/v; - d; no sob or cp; - flatus; - BM; + activity Objective: Vitals: See below I's & O's: See below Exam: GENERAL: On exam, the patient was lying in bed and appeared to be uncomfortable comfortable and in no acute distress. ABDOMEN: Soft, mildly tender and nondistended. Incisions are clean, dry and intact without any evidence of erythema, edema, discharge, or hernia. There are no peritoneal signs or guarding. SKIN: Skin appears to be pink and feels warm to touch. NEUROLOGIC: Patient is awake, alert, and follows commands appropriately. Labs: See below Exam/Review of Systems Vital Signs Vitals Vital Signs Date Time Temp Pulse Resp B/P Pulse Ox O2 Delivery O2 Flow Rate FiO2 11/10/16 07:50 98.1 55 16 121/74 98 11/08/16 17:00 Room Air Intake and Output 11/09/16 11/09/16 11/10/16 15:00 23:00 07:00 Intake Total 1420 ml 820 ml Output Total 3 ml 2 ml Balance 1417 ml 818 ml Results Result Diagram: 11/08/16 1415 11/08/16 1415 HEMAL EMERY M.D. Nov 10, 2016 14:21
[2016-11-10 14:45] VITALS: BP 139/76; PULSE 76
[2016-11-10] MEDS: morphine 2 MG INJ IV PRN ×3 (15:00→16:23)
[2016-11-10] MEDS: ONDANSETRON 4 MG INJ IV PRN (15:08)
[2016-11-10] MEDS ORDERED: morphine 10 MG INJ IM ONE (16:30)
[2016-11-10] MEDS ORDERED: morphine 2 MG INJ IV ONE (17:00)
[2016-11-10 20:44] VITALS: BP 120/78; RESP 19
[2016-11-11] MEDS: DEXTROSE 5%-0.45% NACL 1,000 ML IV SCH ×2 (05:40→19:27)
[2016-11-11] MEDS: DICYCLOMINE 10 MG CAP PO SCH ×3 (05:41→22:01)
[2016-11-11] MEDS: PANTOPRAZOLE (EC) 40 MG TAB PO SCH (05:41)
[2016-11-11 06:02] LABS: BASOPHILS % 0.5 % (0.0-2.0); EOSINOPHILS # 0.1 10^3/ul (0.0-0.5); EOSINOPHILS % 1.4 % (0.0-7.0); HEMATOCRIT 26.5 % (37.0-47.0); HEMOGLOBIN 8.6 g/dl (12.0-16.0); LYMPHOCYTES # 1.7 10^3/ul (0.8-2.9); LYMPHOCYTES % 40.3 % (15.0-51.0); MEAN CORPUSCULAR HEMOGLOBIN 29.1 pg (29.0-33.0); MEAN CORPUSCULAR HGB CONC 32.5 g/dl (32.0-37.0); MEAN CORPUSCULAR VOLUME 89.5 fl (82.0-101.0); MEAN PLATELET VOLUME 10.4 fl (7.4-10.4); MONOCYTE # 0.5 10^3/ul (0.3-0.9); MONOCYTES % 11.1 % (0.0-11.0); NEUTROPHILS % 46.5 % (39.0-77.0); PLATELET COUNT 206 10^3/UL (140-415); RED BLOOD COUNT 2.96 10^6/ul (4.20-5.40); RED CELL DISTRIBUTION WIDTH 12.7 % (11.5-14.5); WHITE BLOOD COUNT 4.2 10^3/ul (4.8-10.8)
[2016-11-11 06:18] LABS: CALCIUM 8.4 mg/dl (8.4-10.2); CREATININE 0.83 mg/dl (0.44-1.00); POTASSIUM 3.2 mmol/L (3.5-5.1)
--- NOTE | 2016-11-11 07:57 | RADRPT ---
PROCEDURE: Gastrographin small bowel follow-through series CLINICAL INDICATION: Abdominal pain. Small bowel obstruction TECHNIQUE: Gastrographin small bowel follow-through series was performed. 0.1 minutes of fluorosco py time was used. 6 images are submitted for interpretation. COMPARISON: CT abdomen and pelvis October 31, 2016, upper GI series November 10, 2016 FINDINGS: Preliminary stripper color film of the abdomen demonstrates a normal bowel gas pattern. The stomach is normal in size and morphology. No filling defects or ulcers are seen. Oral contrast f lowed without impediment into the duodenum. The duodenum is also normal. The small bowel loops are normal in caliber. There are no filling defects or findings of small renato l obstruction. The colon is completely opacified on the delayed, 9-hour film. IMPRESSION: 1. No findings of small bowel obstruction. Normal intestinal motility. Complete opacification of the entire colon on the delayed, 9-hour film. RPTAT: EE .Liya Ibarra MD, Date Time Electronically viewed and signed by .Liya Ibarra MD, on 11/11/2016 07:56 .F/
[2016-11-11 08:22] VITALS: BP 110/66; RESP 16
[2016-11-11] MEDS: LUBIPROSTONE 24 MCG CAP PO SCH ×2 (09:00→20:49)
[2016-11-11] MEDS: POLYETHYLENE GLYCOL 17 GM PACKET PO SCH (09:00)
--- NOTE | 2016-11-11 09:07 | PN ---
Date/Time of Note Date/Time of Note DATE: 11/11/16 TIME: 09:05 Assessment/Plan VTE Prophylaxis VTE Prophylaxis Intervention: ambulation Lines/Catheters IV Catheter Type (from Nrsg): Peripheral IV Assessment/Plan Chief Complaint/Hosp Course 1. ABD PAIN, cramping 2. PKD 3. LIVER CYSTS Problems: Assessment/Plan 1. COntinue medications 2. GI series and Xr ay did not reveal any abnormalities Subjective 24 Hr Interval Summary Constitutional: other (angry) Respiratory: no complaints Cardiovascular: no complaints Gastrointestinal: other (cramping), pain Genitourinary: no complaints Exam/Review of Systems Vital Signs Vitals Vital Signs Date Time Temp Pulse Resp B/P Pulse Ox O2 Delivery O2 Flow Rate FiO2 11/11/16 08:22 98.1 58 16 110/66 97 11/08/16 17:00 Room Air Intake and Output 11/10/16 11/10/16 11/11/16 14:59 22:59 06:59 Intake Total 350 ml 1170 ml Balance 350 ml 1170 ml Exam Constitutional: alert, oriented Psych: no complaints Head: normocephalic Eyes: nl conjunctiva ENMT: nl external ears & nose Neck: supple Respiratory: clear to auscultation Cardiovascular: regular rate and rhythm Results Result Diagram: 11/11/16 0459 11/11/16 0459 Results 24 hrs Laboratory Tests Test 11/11/16 04:59 White Blood Count 4.2 #L Red Blood Count 2.96 L Hemoglobin 8.6 L Hematocrit 26.5 L Mean Corpuscular Volume 89.5 Mean Corpuscular Hemoglobin 29.1 Mean Corpuscular Hemoglobin Concent 32.5 Red Cell Distribution Width 12.7 Platelet Count 206 Mean Platelet Volume 10.4 Neutrophils % 46.5 Lymphocytes % 40.3 Monocytes % 11.1 H Eosinophils % 1.4 Basophils % 0.5 Nucleated Red Blood Cells % 0.0 Neutrophils # 2.0 Lymphocytes # 1.7 Monocytes # 0.5 Eosinophils # 0.1 Basophils # 0.0 Nucleated Red Blood Cells # 0.0 Sodium Level 143 Potassium Level 3.2 L Chloride Level 103 Carbon Dioxide Level 29 Anion Gap 14 Blood Urea Nitrogen 9 Creatinine 0.83 Glucose Level 98 Calcium Level 8.4 Medications Medications Current Medications Ondansetron HCl (Zofran Tab) 4 mg Q4H PRN PO NAUSEA AND/OR VOMITING; Start at 18:30 Pantoprazole (Protonix Tab) 40 mg DAILY@06 PO Last administered on 11/11/16 05 :41; Admin Dose 40 MG; Start 11/09/16 at 06:00 Polyethylene Glycol 17 gm 17 gm DAILY PO Last administered on 11/09/16 09:04; Admin Dose 17 GM; Start 11/09/16 at 09:00 Dextrose/Sodium Chloride (D5-1/2ns) 1,000 ml @ 60 mls/hr [id number] IV Last administered on 11/11/16 05:40; Admin Dose 60 MLS/HR; Start 11/08/16 at 18:28 Ondansetron HCl (Zofran Inj) 4 mg Q6H PRN IV NAUSEA AND/OR VOMITING Last administered on 11/10/16 15:08; Admin Dose 4 MG; Start 11/08/16 at 18:30 Acetaminophen (Tylenol Tab) 650 mg Q6H PRN PO PAIN LEVEL 1-3 OR FEVER; Start at 18:30 Acetaminophen (Tylenol Supp) 650 mg Q6H PRN [place] PAIN LEVEL 1-3 OR FEVER; Start 11/08/16 at 18:30 Acetaminophen/ Hydrocodone Bitart (Bertrand (5/325)) 1 tab Q6H PRN PO MODERATE PAIN LEVEL 4-6; Start 11/08/16 at 18:30 Morphine Sulfate (morphine) 2 mg Q4H PRN IV SEVERE PAIN LEVEL 7-10 Last administered on 11/10/16 15:00; Admin Dose 2 MG; Start 11/08/16 at 18:30 Magnesium Hydroxide (Milk Of Mag) 30 ml DAILY PRN PO CONSTIPATION; Start at 18:30 Dicyclomine HCl (Bentyl) 10 mg BID PRN PO abdominal cramps ; Start 11/08/16 at 19:00 Lubiprostone (Amitiza) 24 mcg BID PO Last administered on 11/10/16 21:34; Admin Dose 24 MCG; Start 11/09/16 at 21:00 Dicyclomine HCl (Bentyl) 20 mg Q8 PO Last administered on 11/11/16 05:41; Admin Dose 20 MG; Start 11/09/16 at 22:00 Docusate Sodium (Colace) 100 mg BID PRN PO CONSTIPATION Last administered on t 21:09; Admin Dose 100 MG; Start 11/09/16 at 21:00 MARCO DEL CID Nov 11, 2016 09:07
[2016-11-11] MEDS ORDERED: POTASSIUM CHLORIDE 20 MEQ POWDER FOR ORAL SOLN PO ONE (09:30)
--- NOTE | 2016-11-11 12:25 | CONS ---
Date/Time of Note Date/Time of Note DATE: 11/11/16 TIME: 12:24 Assessment/Plan Assessment/Plan Chief Complaint/Hosp Course 51-year-old female with history of polycystic kidney disease got readmitted to the hospital complaining of abdominal pain confined to the epigastric area and lower abdomen and also acid reflux disease. Patient is also constipated. No GI bleeding no weight loss no fever no chills. She had a EGD which revealed erosive gastritis and on colonoscopy polyp was removed. CT scan was grossly negative. Patient had a liver cyst is removed a few months ago. Problems: Additional Assessment/Plan Additional Assessment/Plan 1. Abdominal pain crampy in nature, 2. Acid reflux 3. Constipation 4. Polycystic kidney disease Plan Small bowel follow-through to make sure there is no small bowel lesion. Still in process Patient needs EUS for subendothelial lesion in the duodenal bulb Antispasmodic medication Amitiza I would prefer Linzess but it is not in the formulary Consultation Date/Type/Reason Admit Date/Time Nov 09, 2016 at 22:17 24 HR Interval Summary Free Text/Dictation Persistent abdominal pain Exam/Review of Systems Vital Signs Vitals Vital Signs Date Time Temp Pulse Resp B/P Pulse Ox O2 Delivery O2 Flow Rate FiO2 11/11/16 08:22 98.1 58 16 110/66 97 11/08/16 17:00 Room Air Intake and Output 11/10/16 11/10/16 11/11/16 15:00 23:00 07:00 Intake Total 350 ml 1170 ml Balance 350 ml 1170 ml Exam Constitutional: alert, oriented, well developed Psych: nl mood/affect, no complaints Head: atraumatic, normocephalic Eyes: EOMI, PERRL, nl conjunctiva, nl lids, nl sclera ENMT: nl external ears & nose, nl lips & teeth, nl nasal mucosa & septum Neck: non-tender, supple Respiratory: clear to auscultation, normal air movement Cardiovascular: nl pulses, regular rate and rhythm Gastrointestinal: nl liver, spleen, non-tender, soft Musculoskeletal: nl extremities to inspection, nl gait and stance Extremities: normal pulses Neurological: LOG COOKER II-XII intact, nl mental status, nl speech, nl strength Skin: nl turgor, No rash or lesions Lymph: nl lymph nodes Results Result Diagram: 11/11/16 0459 11/11/16 0459 Results 24 hrs Laboratory Tests Test 11/11/16 04:59 White Blood Count 4.2 #L Red Blood Count 2.96 L Hemoglobin 8.6 L Hematocrit 26.5 L Mean Corpuscular Volume 89.5 Mean Corpuscular Hemoglobin 29.1 Mean Corpuscular Hemoglobin Concent 32.5 Red Cell Distribution Width 12.7 Platelet Count 206 Mean Platelet Volume 10.4 Neutrophils % 46.5 Lymphocytes % 40.3 Monocytes % 11.1 H Eosinophils % 1.4 Basophils % 0.5 Nucleated Red Blood Cells % 0.0 Neutrophils # 2.0 Lymphocytes # 1.7 Monocytes # 0.5 Eosinophils # 0.1 Basophils # 0.0 Nucleated Red Blood Cells # 0.0 Sodium Level 143 Potassium Level 3.2 L Chloride Level 103 Carbon Dioxide Level 29 Anion Gap 14 Blood Urea Nitrogen 9 Creatinine 0.83 Glucose Level 98 Calcium Level 8.4 Medications Medications Current Medications Ondansetron HCl (Zofran Tab) 4 mg Q4H PRN PO NAUSEA AND/OR VOMITING; Start at 18:30 Pantoprazole (Protonix Tab) 40 mg DAILY@06 PO Last administered on 11/11/16 05 :41; Admin Dose 40 MG; Start 11/09/16 at 06:00 Polyethylene Glycol 17 gm 17 gm DAILY PO Last administered on 11/09/16 09:04; Admin Dose 17 GM; Start 11/09/16 at 09:00 Dextrose/Sodium Chloride (D5-1/2ns) 1,000 ml @ 60 mls/hr [id number] IV Last administered on 11/11/16 05:40; Admin Dose 60 MLS/HR; Start 11/08/16 at 18:28 Ondansetron HCl (Zofran Inj) 4 mg Q6H PRN IV NAUSEA AND/OR VOMITING Last administered on 11/10/16 15:08; Admin Dose 4 MG; Start 11/08/16 at 18:30 Acetaminophen (Tylenol Tab) 650 mg Q6H PRN PO PAIN LEVEL 1-3 OR FEVER; Start at 18:30 Acetaminophen (Tylenol Supp) 650 mg Q6H PRN [place] PAIN LEVEL 1-3 OR FEVER; Start 11/08/16 at 18:30 Acetaminophen/ Hydrocodone Bitart (Theodore (5/325)) 1 tab Q6H PRN PO MODERATE PAIN LEVEL 4-6; Start 11/08/16 at 18:30 Morphine Sulfate (morphine) 2 mg Q4H PRN IV SEVERE PAIN LEVEL 7-10 Last administered on 11/10/16 15:00; Admin Dose 2 MG; Start 11/08/16 at 18:30 Magnesium Hydroxide (Milk Of Mag) 30 ml DAILY PRN PO CONSTIPATION; Start at 18:30 Dicyclomine HCl (Bentyl) 10 mg BID PRN PO abdominal cramps ; Start 11/08/16 at 19:00 Lubiprostone (Amitiza) 24 mcg BID PO Last administered on 11/10/16 21:34; Admin Dose 24 MCG; Start 11/09/16 at 21:00 Dicyclomine HCl (Bentyl) 20 mg Q8 PO Last administered on 11/11/16 05:41; Admin Dose 20 MG; Start 11/09/16 at 22:00 Docusate Sodium (Colace) 100 mg BID PRN PO CONSTIPATION Last administered on 21:09; Admin Dose 100 MG; Start 11/09/16 at 21:00 OBED SEARS MD Nov 11, 2016 12:25
[2016-11-11] MEDS: morphine 2 MG INJ IV PRN (13:24)
--- NOTE | 2016-11-11 13:28 | PN ---
Date/Time of Note Date/Time of Note DATE: 11/11/16 TIME: 13:24 Assessment/Plan Lines/Catheters IV Catheter Type (from Nrs): Peripheral IV Assessment/Plan Assessment/Plan [facility] Progress Note Date of Service: 11/11/2016 Place of service: [facility] second floor [facility] Today's Assessment & Plan: Overall stable but with ongoing issues with nausea and vomiting, particularly with contrast. Upper GI with small bowel follow-through showed no evidence of obstruction. No indication for acute surgical intervention. No obvious evidence for bowel obstruction. The size of the liver is likely not responsible for the patient's symptoms and I do not see a good chance that performance of a right hepatectomy, which would remove 50% of the volume of the liver, would have a high chance of alleviating the patient's symptoms. I had a long discussion with the patient and discussed the case with Dr. Harrison. There are no actionable surgical problems that I can detect on careful examination of the data. Patient certainly has the symptoms and should be treated further medically. I also suggested possible referral for second opinion with another experienced hepatobiliary surgeon. Patient appeared to understand and agreed with the plans. With above assessment, I've recommended the following for today: 1. Continue above cares 2. Keep in-house, but attempt to relocate patient to a different floor (4 W. or 6 W.) 3. Continued multidisciplinary discussion 4. Time in the hospital for medications to take effect 5. Regular diet 6. Increase activity 7. Possible need for second opinion from another experience hepatobiliary surgeon Thank you again for your great care of this very pleasant patient and wonderful family. If there are any questions, please feel free to call me at [phone]. Nature of presenting problem: Moderate to high severity Please note that, given the multiple number of diagnoses or management options, the moderate amount and/or complexity of data needed to be reviewed, and moderate to high risk of complications and/or morbidity or mortality, this qualifies as moderate to high complexity type of decision-making. Disclaimer: Inadvertent spelling and grammatical errors are likely due to EHR/ dictation software use and do not reflect on the quality of delivered patient care. Also, please note that the electronic time recorded on this node does not necessarily reflect the actual time of the visit. Updated Clinical Summary: The patient is a very pleasant 49-year-old young lady with symptomatic polycystic kidney and liver disease with abdominal pain and decreased oral intake. Status post laparoscopic cyst unroofing (multiple) 09/24/2015 as an outpatient. Readmission to [facility] for partial SBO September 2016. Possible UTI, and later in the hospitalization, slight elevation in amylase and lipase. S/p EGD at [facility] by Dr. Harrison: Erosive gastritis, sub-endothelial 2 cm lesion in the duodenal bulb, normal duodenum, normal Z line at 38 cm, normal esophagus. Readmitted [facility] for abd pain, nausea and vomiting 10/31/16. Status post colonoscopy 11/03/2016 that showed small polyp in the sigmoid colon (removed) and no other major pathology. Discharge home 11/04/2016. Comorbidities: 1. BMI 29.5 2. Polycystic kidney and liver disease discovered in the summer of 2013 3. S/p laparoscopic cyst unroofing (multiple) 09/24/2015 as an outpatient at [facility] through [facility] 4. S/p partial hysterectomy in 2010 5. S/p EGD at [facility] by Dr. Harrison ( Erosive gastritis, sub-endothelial 2 cm lesion in the duodenal bulb, normal duodenum, normal Z line at 38 cm, normal esophagus) 6. Erosive gastritis 7. Sub-endothelial 2 cm lesion in the duodenal bulb 8. Status post colonoscopy 11/03/2016 that showed small polyp in the sigmoid colon (removed) and no other major pathology at [facility]. Subjective: No major events or complaints, but with ongoing issues with nausea and vomiting , particularly with contrast material use for upper GI with small bowel follow- through; mild abd pain and under control with medications; + n/v; - d; no sob or cp; - flatus; - BM; + activity; understandably frustrated with her clinical situation; I asked the patient whether she used marijuana, but she reported not using any marijuana or other drugs. Objective: Vitals: See below I's & O's: See below Exam: GENERAL: On exam, the patient was lying in bed and appeared to be uncomfortable comfortable and in no acute distress. ABDOMEN: Soft, mildly tender and nondistended. Incisions are clean, dry and intact without any evidence of erythema, edema, discharge, or hernia. There are no peritoneal signs or guarding. SKIN: Skin appears to be pink and feels warm to touch. NEUROLOGIC: Patient is awake, alert, and follows commands appropriately. Labs: See below Exam/Review of Systems Vital Signs Vitals Vital Signs Date Time Temp Pulse Resp B/P Pulse Ox O2 Delivery O2 Flow Rate FiO2 11/11/16 08:22 98.1 58 16 110/66 97 11/08/16 17:00 Room Air Intake and Output 11/10/16 11/10/16 11/11/16 15:00 23:00 07:00 Intake Total 350 ml 1170 ml Balance 350 ml 1170 ml Results Result Diagram: 11/11/16 0459 11/11/16 0459 HEMAL EMERY M.D. Nov 11, 2016 13:28
[2016-11-11 14:40] VITALS: BP 125/2; RESP 17
[2016-11-11] MEDS ORDERED: morphine 2 MG INJ IV ONE (16:35)
[2016-11-11] MEDS: morphine (ER) 15 MG TAB PO SCH (20:47)
[2016-11-11 20:53] VITALS: BP 137/79; RESP 18
[2016-11-11] MEDS: AMITRIPTYLINE 25 MG TAB PO SCH (21:00)
[2016-11-12 02:56] VITALS: BP 112/68; RESP 19
[2016-11-12] MEDS: PANTOPRAZOLE (EC) 40 MG TAB PO SCH (06:37)
[2016-11-12] MEDS: DICYCLOMINE 10 MG CAP PO SCH ×3 (06:37→20:26)
[2016-11-12 08:08] VITALS: BP 105/61; RESP 22
[2016-11-12] MEDS: POLYETHYLENE GLYCOL 17 GM PACKET PO SCH (09:00)
[2016-11-12] MEDS: LUBIPROSTONE 24 MCG CAP PO SCH ×3 (09:00→20:24)
[2016-11-12] MEDS: morphine (ER) 15 MG TAB PO SCH ×2 (09:01→20:25)
[2016-11-12] MEDS: DEXTROSE 5%-0.45% NACL 1,000 ML IV SCH ×2 (12:08→22:28)
--- NOTE | 2016-11-12 12:59 | PN ---
Date/Time of Note Date/Time of Note DATE: 11/12/16 TIME: 12:58 Assessment/Plan VTE Prophylaxis VTE Prophylaxis Intervention: ambulation Lines/Catheters IV Catheter Type (from Nrsg): Peripheral IV Assessment/Plan Chief Complaint/Hosp Course 1. ABD PAIN, cramping, better 2. PKD 3. LIVER CYSTS Problems: Assessment/Plan 1. Possible discharge 2. tertiary centers for finding the reason of Abdominal cramping Subjective 24 Hr Interval Summary Constitutional: improved, no complaints Exam/Review of Systems Vital Signs Vitals Vital Signs Date Time Temp Pulse Resp B/P Pulse Ox O2 Delivery O2 Flow Rate FiO2 11/12/16 08:08 97.9 59 22 105/61 97 11/08/16 17:00 Room Air Intake and Output 11/11/16 11/11/16 11/12/16 15:00 23:00 07:00 Intake Total 1140 ml 720 ml Balance 1140 ml 720 ml Exam Constitutional: alert, oriented Neck: supple Respiratory: clear to auscultation Cardiovascular: regular rate and rhythm Results Result Diagram: 11/11/16 0459 11/11/16 0459 Medications Medications Current Medications Ondansetron HCl (Zofran Tab) 4 mg Q4H PRN PO NAUSEA AND/OR VOMITING; Start at 18:30 Pantoprazole (Protonix Tab) 40 mg DAILY@06 PO Last administered on 11/12/16 06 :37; Admin Dose 40 MG; Start 11/09/16 at 06:00 Polyethylene Glycol 17 gm 17 gm DAILY PO Last administered on 11/09/16 09:04; Admin Dose 17 GM; Start 11/09/16 at 09:00 Dextrose/Sodium Chloride (D5-1/2ns) 1,000 ml @ 60 mls/hr [id number] IV Last administered on 11/12/16 12:08; Admin Dose 60 MLS/HR; Start 11/08/16 at 18:28 Ondansetron HCl (Zofran Inj) 4 mg Q6H PRN IV NAUSEA AND/OR VOMITING Last administered on 11/10/16 15:08; Admin Dose 4 MG; Start 11/08/16 at 18:30 Acetaminophen (Tylenol Tab) 650 mg Q6H PRN PO PAIN LEVEL 1-3 OR FEVER; Start at 18:30 Acetaminophen (Tylenol Supp) 650 mg Q6H PRN [place] PAIN LEVEL 1-3 OR FEVER; Start 11/08/16 at 18:30 Acetaminophen/ Hydrocodone Bitart ([place] (5/325)) 1 tab Q6H PRN PO MODERATE PAIN LEVEL 4-6; Start 11/08/16 at 18:30 Morphine Sulfate (morphine) 2 mg Q4H PRN IV SEVERE PAIN LEVEL 7-10 Last administered on 11/11/16 13:24; Admin Dose 2 MG; Start 11/08/16 at 18:30 Magnesium Hydroxide (Milk Of Mag) 30 ml DAILY PRN PO CONSTIPATION; Start at 18:30 Dicyclomine HCl (Bentyl) 10 mg BID PRN PO abdominal cramps ; Start 11/08/16 at 19:00 Lubiprostone (Amitiza) 24 mcg BID PO Last administered on 11/10/16 21:34; Admin Dose 24 MCG; Start 11/09/16 at 21:00 Dicyclomine HCl (Bentyl) 20 mg Q8 PO Last administered on 11/12/16 06:37; Admin Dose 20 MG; Start 11/09/16 at 22:00 Docusate Sodium (Colace) 100 mg BID PRN PO CONSTIPATION Last administered on 21:09; Admin Dose 100 MG; Start 11/09/16 at 21:00 Amitriptyline HCl (Elavil) 25 mg HS PO ; Start 11/11/16 at 21:00 Morphine Sulfate (Ms Contin (Er)) 30 mg BID PO Last administered on 11/12/16 09:01; Admin Dose 30 MG; Start 11/11/16 at 21:00 MARCO DEL CID Nov 12, 2016 12:59
[2016-11-12] MEDS: ONDANSETRON 4 MG INJ IV PRN (13:35)
--- NOTE | 2016-11-12 13:42 | CONS ---
Date/Time of Note Date/Time of Note DATE: 11/12/16 TIME: 13:41 Assessment/Plan Assessment/Plan Chief Complaint/Hosp Course 51-year-old female with history of polycystic kidney disease got readmitted to the hospital complaining of abdominal pain confined to the epigastric area and lower abdomen and also acid reflux disease. Patient is also constipated. No GI bleeding no weight loss no fever no chills. She had a EGD which revealed erosive gastritis and on colonoscopy polyp was removed. CT scan was grossly negative. Patient had a liver cyst is removed a few months ago. Problems: Additional Assessment/Plan Additional Assessment/Plan 1. Abdominal pain crampy in nature, has improved 2. Acid reflux 3. Constipation 4. Polycystic kidney disease 5. Anemia Plan Small bowel follow-through to make sure there is no small bowel lesion. Still in process Patient needs EUS for subendothelial lesion in the duodenal bulb Antispasmodic medication Amitiza I would prefer Linzess but it is not in the formulary Continue Elavil Workup for anemia Consultation Date/Type/Reason Admit Date/Time Nov 09, 2016 at 22:17 24 HR Interval Summary Constitutional: improved Exam/Review of Systems Vital Signs Vitals Vital Signs Date Time Temp Pulse Resp B/P Pulse Ox O2 Delivery O2 Flow Rate FiO2 11/12/16 08:08 97.9 59 22 105/61 97 11/08/16 17:00 Room Air Intake and Output 11/11/16 11/11/16 11/12/16 15:00 23:00 07:00 Intake Total 1140 ml 720 ml Balance 1140 ml 720 ml Exam Constitutional: alert, oriented, well developed Psych: nl mood/affect, no complaints Head: atraumatic, normocephalic Eyes: EOMI, PERRL, nl conjunctiva, nl lids, nl sclera ENMT: nl external ears & nose, nl lips & teeth, nl nasal mucosa & septum Neck: non-tender, supple Respiratory: clear to auscultation, normal air movement Cardiovascular: nl pulses, regular rate and rhythm Gastrointestinal: nl liver, spleen, non-tender, soft Musculoskeletal: nl extremities to inspection, nl gait and stance Extremities: normal pulses Neurological: [employer]S ADMINISTRATOR II-XII intact, nl mental status, nl speech, nl strength Skin: nl turgor, No rash or lesions Lymph: nl lymph nodes Results Result Diagram: 11/11/16 0459 11/11/16 0459 Medications Medications Current Medications Ondansetron HCl (Zofran Tab) 4 mg Q4H PRN PO NAUSEA AND/OR VOMITING; Start at 18:30 Pantoprazole (Protonix Tab) 40 mg DAILY@06 PO Last administered on 11/12/16 06 :37; Admin Dose 40 MG; Start 11/09/16 at 06:00 Polyethylene Glycol 17 gm 17 gm DAILY PO Last administered on 11/09/16 09:04; Admin Dose 17 GM; Start 11/09/16 at 09:00 Dextrose/Sodium Chloride (D5-1/2ns) 1,000 ml @ 60 mls/hr [id number] IV Last administered on 11/12/16 12:08; Admin Dose 60 MLS/HR; Start 11/08/16 at 18:28 Ondansetron HCl (Zofran Inj) 4 mg Q6H PRN IV NAUSEA AND/OR VOMITING Last administered on 11/12/16 13:35; Admin Dose 4 MG; Start 11/08/16 at 18:30 Acetaminophen (Tylenol Tab) 650 mg Q6H PRN PO PAIN LEVEL 1-3 OR FEVER; Start at 18:30 Acetaminophen (Tylenol Supp) 650 mg Q6H PRN [place] PAIN LEVEL 1-3 OR FEVER; Start 11/08/16 at 18:30 Acetaminophen/ Hydrocodone Bitart ([place] (5/325)) 1 tab Q6H PRN PO MODERATE PAIN LEVEL 4-6; Start 11/08/16 at 18:30 Morphine Sulfate (morphine) 2 mg Q4H PRN IV SEVERE PAIN LEVEL 7-10 Last administered on 11/11/16 13:24; Admin Dose 2 MG; Start 11/08/16 at 18:30 Magnesium Hydroxide (Milk Of Mag) 30 ml DAILY PRN PO CONSTIPATION; Start at 18:30 Dicyclomine HCl (Bentyl) 10 mg BID PRN PO abdominal cramps ; Start 11/08/16 at 19:00 Lubiprostone (Amitiza) 24 mcg BID PO Last administered on 11/10/16 21:34; Admin Dose 24 MCG; Start 11/09/16 at 21:00 Dicyclomine HCl (Bentyl) 20 mg Q8 PO Last administered on 11/12/16 06:37; Admin Dose 20 MG; Start 11/09/16 at 22:00 Docusate Sodium (Colace) 100 mg BID PRN PO CONSTIPATION Last administered on 21:09; Admin Dose 100 MG; Start 11/09/16 at 21:00 Amitriptyline HCl (Elavil) 25 mg HS PO ; Start 11/11/16 at 21:00 Morphine Sulfate (Ms Contin (Er)) 30 mg BID PO Last administered on 11/12/16 09:01; Admin Dose 30 MG; Start 11/11/16 at 21:00 OBED SEARS MD Nov 12, 2016 13:42
[2016-11-12 15:41] VITALS: BP 113/64; RESP 20
--- NOTE | 2016-11-12 16:53 | PN ---
Date/Time of Note Date/Time of Note DATE: 11/12/16 TIME: 16:42 Assessment/Plan Lines/Catheters IV Catheter Type (from Nrsg): Peripheral IV Assessment/Plan Assessment/Plan [facility] Progress Note Date of Service: 11/12/2016 Place of service: [facility] 4th floor Today's Assessment & Plan: Overall stable but with ongoing issues with nausea and vomiting, particularly with contrast. No obvious identifiable and actionable surgical etiology. Management and dispo per medical team and GI. May benefit from second opinion with another experienced hepatobiliary center. Patient appeared to understand and agreed with the plans. With above assessment, I've recommended the following for today: 1. Discharge when medically stable 2. Possible need for second opinion from another experience hepatobiliary surgeon Thank you again for your great care of this very pleasant patient and wonderful family. If there are any questions, please feel free to call me at [phone]. Nature of presenting problem: Moderate to high severity Please note that, given the multiple number of diagnoses or management options, the moderate amount and/or complexity of data needed to be reviewed, and moderate to high risk of complications and/or morbidity or mortality, this qualifies as moderate to high complexity type of decision-making. Disclaimer: Inadvertent spelling and grammatical errors are likely due to EHR/ dictation software use and do not reflect on the quality of delivered patient care. Also, please note that the electronic time recorded on this node does not necessarily reflect the actual time of the visit. Updated Clinical Summary: The patient is a very pleasant 49-year-old young lady with symptomatic polycystic kidney and liver disease with abdominal pain and decreased oral intake. Status post laparoscopic cyst unroofing (multiple) 09/24/2015 as an outpatient. Readmission to [facility] for partial SBO September 2016. Possible UTI, and later in the hospitalization, slight elevation in amylase and lipase. S/p EGD at [facility] by Dr. Harrison: Erosive gastritis, sub-endothelial 2 cm lesion in the duodenal bulb, normal duodenum, normal Z line at 38 cm, normal esophagus. Readmitted [facility] for abd pain, nausea and vomiting 10/31/16. Status post colonoscopy 11/03/2016 that showed small polyp in the sigmoid colon (removed) and no other major pathology. Discharge home 11/04/2016. Comorbidities: 1. BMI 29.5 2. Polycystic kidney and liver disease discovered in the summer of 2013 3. S/p laparoscopic cyst unroofing (multiple) 09/24/2015 as an outpatient at [facility] through [facility] 4. S/p partial hysterectomy in 2010 5. S/p EGD at [facility] by Dr. Harrison ( Erosive gastritis, sub-endothelial 2 cm lesion in the duodenal bulb, normal duodenum, normal Z line at 38 cm, normal esophagus) 6. Erosive gastritis 7. Sub-endothelial 2 cm lesion in the duodenal bulb 8. Status post colonoscopy 11/03/2016 that showed small polyp in the sigmoid colon (removed) and no other major pathology at [facility]. Subjective: No major events or complaints, but with ongoing issues with nausea and vomiting ; mild abd pain and under control with medications; + n/v; - d; no sob or cp; + flatus; - BM; + activity; understandably frustrated with her clinical situation ; patient reported vomiting soup back 5 minutes after eating it. Objective: Vitals: See below I's & O's: See below Exam: GENERAL: On exam, the patient was lying in bed and appeared to be comfortable and in no acute distress. ABDOMEN: Soft, none to mildly tender and nondistended. Incisions are clean, dry and intact without any evidence of erythema, edema, discharge, or hernia. There are no peritoneal signs or guarding. SKIN: Skin appears to be pink and feels warm to touch. NEUROLOGIC: Patient is awake, alert, and follows commands appropriately. Labs: See below Exam/Review of Systems Vital Signs Vitals Vital Signs Date Time Temp Pulse Resp B/P Pulse Ox O2 Delivery O2 Flow Rate FiO2 11/12/16 15:41 97.8 63 20 113/64 92 11/08/16 17:00 Room Air Intake and Output 11/11/16 11/11/16 11/12/16 15:00 23:00 07:00 Intake Total 1140 ml 720 ml Balance 1140 ml 720 ml Results Result Diagram: 11/11/16 0459 11/11/16 0459 HEMAL EMERY M.D. Nov 12, 2016 16:52
[2016-11-12 18:59] VITALS: BP 126/71; RESP 18
[2016-11-12] MEDS: AMITRIPTYLINE 25 MG TAB PO SCH (20:24)
[2016-11-13] MEDS: PANTOPRAZOLE (EC) 40 MG TAB PO SCH (05:57)
[2016-11-13] MEDS: DICYCLOMINE 10 MG CAP PO SCH ×3 (05:57→20:27)
[2016-11-13 06:14] LABS: BASOPHILS % 0.7 % (0.0-2.0); EOSINOPHILS # 0.1 10^3/ul (0.0-0.5); HEMATOCRIT 28.7 % (37.0-47.0); HEMOGLOBIN 9.3 g/dl (12.0-16.0); LYMPHOCYTES # 1.5 10^3/ul (0.8-2.9); LYMPHOCYTES % 33.8 % (15.0-51.0); MEAN CORPUSCULAR HEMOGLOBIN 28.4 pg (29.0-33.0); MEAN CORPUSCULAR HGB CONC 32.4 g/dl (32.0-37.0); MEAN CORPUSCULAR VOLUME 87.8 fl (82.0-101.0); MEAN PLATELET VOLUME 10.6 fl (7.4-10.4); MONOCYTE # 0.6 10^3/ul (0.3-0.9); MONOCYTES % 13.7 % (0.0-11.0); NEUTROPHIL # 2.3 10^3/ul (1.6-7.5); NEUTROPHILS % 49.6 % (39.0-77.0); PLATELET COUNT 250 10^3/UL (140-415); RED BLOOD COUNT 3.27 10^6/ul (4.20-5.40); RED CELL DISTRIBUTION WIDTH 12.6 % (11.5-14.5); WHITE BLOOD COUNT 4.5 10^3/ul (4.8-10.8)
[2016-11-13 06:18] LABS: CALCIUM 8.8 mg/dl (8.4-10.2); CREATININE 0.7 mg/dl (0.44-1.00)
[2016-11-13 06:22] LABS: POTASSIUM 2.9 mmol/L (3.5-5.1)
[2016-11-13] MEDS ORDERED: POTASSIUM CHLORIDE (SR) 20 MEQ TAB PO STA (06:27)
[2016-11-13] MEDS ORDERED: POTASSIUM CHLORIDE 250 ML IVPB ONE (07:30)
[2016-11-13] MEDS: morphine (ER) 15 MG TAB PO SCH ×2 (08:22→20:19)
[2016-11-13] MEDS: LUBIPROSTONE 24 MCG CAP PO SCH ×2 (08:22→20:27)
[2016-11-13] MEDS: POLYETHYLENE GLYCOL 17 GM PACKET PO SCH (08:22)
[2016-11-13 08:25] VITALS: BP 127/69; RESP 14
[2016-11-13] MEDS: DOCUSATE SODIUM 100 MG CAP PO PRN (09:25)
[2016-11-13 14:29] VITALS: BP 135/78; RESP 16
[2016-11-13] MEDS ORDERED: morphine 4 MG/ML VIAL IV PRN (14:30)
[2016-11-13] MEDS: DEXTROSE 5%-0.45% NACL 1,000 ML IV SCH (15:08)
--- NOTE | 2016-11-13 15:38 | PN ---
Date/Time of Note Date/Time of Note DATE: 11/13/16 TIME: 15:37 Assessment/Plan Lines/Catheters IV Catheter Type (from Nrsg): Peripheral IV Assessment/Plan Assessment/Plan [facility] Progress Note Date of Service: 11/13/2016 Place of service: [facility] 4th floor Today's Assessment & Plan: Overall stable but with ongoing issues with nausea and vomiting. Still bloated and still no clear actionable etiology. No obvious identifiable and actionable surgical etiology. Management and dispo per medical team and GI. May benefit from second opinion with another experienced hepatobiliary center. Patient appeared to understand and agreed with the plans. With above assessment, I've recommended the following for today: 1. Discharge when medically stable 2. Possible need for second opinion from another experience hepatobiliary center Thank you again for your great care of this very pleasant patient and wonderful family. If there are any questions, please feel free to call me at [phone]. Nature of presenting problem: Moderate to high severity Please note that, given the multiple number of diagnoses or management options, the moderate amount and/or complexity of data needed to be reviewed, and moderate to high risk of complications and/or morbidity or mortality, this qualifies as moderate to high complexity type of decision-making. Disclaimer: Inadvertent spelling and grammatical errors are likely due to EHR/ dictation software use and do not reflect on the quality of delivered patient care. Also, please note that the electronic time recorded on this node does not necessarily reflect the actual time of the visit. Updated Clinical Summary: The patient is a very pleasant 49-year-old young lady with symptomatic polycystic kidney and liver disease with abdominal pain and decreased oral intake. Status post laparoscopic cyst unroofing (multiple) 09/24/2015 as an outpatient. Readmission to [facility] for partial SBO September 2016. Possible UTI, and later in the hospitalization, slight elevation in amylase and lipase. S/p EGD at [facility] by Dr. Harrison: Erosive gastritis, sub-endothelial 2 cm lesion in the duodenal bulb, normal duodenum, normal Z line at 38 cm, normal esophagus. Readmitted [facility] for abd pain, nausea and vomiting 10/31/16. Status post colonoscopy 11/03/2016 that showed small polyp in the sigmoid colon (removed) and no other major pathology. Discharge home 11/04/2016. Comorbidities: 1. BMI 29.5 2. Polycystic kidney and liver disease discovered in the summer of 2013 3. S/p laparoscopic cyst unroofing (multiple) 09/24/2015 as an outpatient at [facility] through [facility] 4. S/p partial hysterectomy in 2010 5. S/p EGD at [facility] by Dr. Harrison ( Erosive gastritis, sub-endothelial 2 cm lesion in the duodenal bulb, normal duodenum, normal Z line at 38 cm, normal esophagus) 6. Erosive gastritis 7. Sub-endothelial 2 cm lesion in the duodenal bulb 8. Status post colonoscopy 11/03/2016 that showed small polyp in the sigmoid colon (removed) and no other major pathology at [facility]. Subjective: No major events or complaints, but with ongoing issues with bloating, nausea and vomiting; mild abd pain and under control with medications; + n/v; - d; no sob or cp; + flatus; - BM; + activity; understandably frustrated with her clinical situation. Objective: Vitals: See below I's & O's: See below Exam: GENERAL: On exam, the patient was lying in bed and appeared to be comfortable and in no acute distress. ABDOMEN: Soft, none to mildly tender and nondistended. Incisions are clean, dry and intact without any evidence of erythema, edema, discharge, or hernia. There are no peritoneal signs or guarding. SKIN: Skin appears to be pink and feels warm to touch. NEUROLOGIC: Patient is awake, alert, and follows commands appropriately. Labs: See below Exam/Review of Systems Vital Signs Vitals Vital Signs Date Time Temp Pulse Resp B/P Pulse Ox O2 Delivery O2 Flow Rate FiO2 11/13/16 14:29 98.6 69 16 135/78 95 Intake and Output 11/12/16 11/12/16 11/13/16 15:00 23:00 07:00 Intake Total 480 ml 600 ml 1320 ml Output Total 200 ml Balance 480 ml 400 ml 1320 ml Results Result Diagram: 11/13/16 0426 11/13/16 0426 HEMAL EMERY M.D. Nov 13, 2016 15:38
[2016-11-13] MEDS ORDERED: MAGNESIUM HYDROXIDE 30ML CUP PO PRN (17:00)
[2016-11-13] MEDS: SUCRALFATE (100 MG/ML) 10ML CUP GTB SCH ×2 (17:00→20:27)
--- NOTE | 2016-11-13 17:23 | PN ---
Date/Time of Note Date/Time of Note DATE: 11/13/16 TIME: 17:20 Assessment/Plan VTE Prophylaxis VTE Prophylaxis Intervention: other Lines/Catheters IV Catheter Type (from Nrsg): Peripheral IV Assessment/Plan Chief Complaint/Hosp Course A/P ABD PAIN PKD LIVER CYSTS GASTRITIS DYSPEPSIA PLAN PPI ZANTAC KCL Problems: Subjective 24 Hr Interval Summary Gastrointestinal: nausea (+) Genitourinary: no complaints Musculoskeletal: no complaints Exam/Review of Systems Vital Signs Vitals Vital Signs Date Time Temp Pulse Resp B/P Pulse Ox O2 Delivery O2 Flow Rate FiO2 11/13/16 14:29 98.6 69 16 135/78 95 Intake and Output 11/12/16 11/12/16 11/13/16 15:00 23:00 07:00 Intake Total 480 ml 600 ml 1320 ml Output Total 200 ml Balance 480 ml 400 ml 1320 ml Exam ENMT: nl external ears & nose Neck: supple Respiratory: clear to auscultation Cardiovascular: regular rate and rhythm Gastrointestinal: soft Musculoskeletal: nl extremities to inspection Extremities: normal pulses Results Result Diagram: 11/13/16 0426 11/13/16 0426 Results 24 hrs Laboratory Tests Test 11/13/16 04:26 White Blood Count 4.5 L Red Blood Count 3.27 L Hemoglobin 9.3 L Hematocrit 28.7 L Mean Corpuscular Volume 87.8 Mean Corpuscular Hemoglobin 28.4 L Mean Corpuscular Hemoglobin Concent 32.4 Red Cell Distribution Width 12.6 Platelet Count 250 # Mean Platelet Volume 10.6 H Neutrophils % 49.6 Lymphocytes % 33.8 Monocytes % 13.7 H Eosinophils % 2.0 Basophils % 0.7 Nucleated Red Blood Cells % 0.0 Neutrophils # 2.3 Lymphocytes # 1.5 Monocytes # 0.6 Eosinophils # 0.1 Basophils # 0.0 Nucleated Red Blood Cells # 0.0 Sodium Level 141 Potassium Level 2.9 *L Chloride Level 100 Carbon Dioxide Level 28 Anion Gap 16 Blood Urea Nitrogen 5 L Creatinine 0.70 Glucose Level 100 Calcium Level 8.8 Medications Medications Current Medications Ondansetron HCl (Zofran Tab) 4 mg Q4H PRN PO NAUSEA AND/OR VOMITING; Start at 18:30 Pantoprazole (Protonix Tab) 40 mg DAILY@06 PO Last administered on 11/13/16t 05 :57; Admin Dose 40 MG; Start 11/09/16 at 06:00 Polyethylene Glycol 17 gm 17 gm DAILY PO Last administered on 11/09/16 09:04; Admin Dose 17 GM; Start 11/09/16 at 09:00 Dextrose/Sodium Chloride (D5-1/2ns) 1,000 ml @ 60 mls/hr [id number] IV Last administered on 11/12/16 12:08; Admin Dose 60 MLS/HR; Start 11/08/16 at 18:28 Ondansetron HCl (Zofran Inj) 4 mg Q6H PRN IV NAUSEA AND/OR VOMITING Last administered on 11/12/16 13:35; Admin Dose 4 MG; Start 11/08/16 at 18:30 Acetaminophen (Tylenol Tab) 650 mg Q6H PRN PO PAIN LEVEL 1-3 OR FEVER; Start at 18:30 Acetaminophen (Tylenol Supp) 650 mg Q6H PRN OR PAIN LEVEL 1-3 OR FEVER; Start 11/08/16 at 18:30 Acetaminophen/ Hydrocodone Bitart ([place] (5/325)) 1 tab Q6H PRN PO MODERATE PAIN LEVEL 4-6; Start 11/08/16 at 18:30 Dicyclomine HCl (Bentyl) 10 mg BID PRN PO abdominal cramps ; Start 11/08/16 at 19:00 Lubiprostone (Amitiza) 24 mcg BID PO Last administered on 11/12/16 20:24; Admin Dose 24 MCG; Start 11/09/16 at 21:00 Dicyclomine HCl (Bentyl) 20 mg Q8 PO Last administered on 11/13/16 13:48; Admin Dose 20 MG; Start 11/09/16 at 22:00 Docusate Sodium (Colace) 100 mg BID PRN PO CONSTIPATION Last administered on 09:25; Admin Dose 100 MG; Start 11/09/16 at 21:00 Amitriptyline HCl (Elavil) 25 mg HS PO ; Start 11/11/16 at 21:00 Morphine Sulfate (morphine) 2 mg Q4H PRN IV SEVERE PAIN LEVEL 7-10 Last administered on 11/13/16 16:01; Admin Dose 2 MG; Start 11/13/16 at 14:30 Ranitidine HCl (Zantac) 150 mg BID PO ; Start 11/13/16 at 21:00 Sucralfate (Carafate Susp) 1 gm QID GTB ; Start 11/13/16 at 17:00 Magnesium Hydroxide (Milk Of Mag) 15 ml BID PRN PO CONSTIPATION; Start at 17:00 Morphine Sulfate (Ms Contin (Er)) 15 mg BID PO ; Start 11/13/16 at 21:00 MARIANNE MONTELONGO MD Nov 13, 2016 17:23
[2016-11-13 20:00] VITALS: BP 147/77; RESP 19
[2016-11-13] MEDS: ONDANSETRON 4 MG INJ IV PRN (20:19)
[2016-11-13] MEDS: RANITIDINE 150 MG TAB PO SCH (20:27)
[2016-11-13] MEDS: AMITRIPTYLINE 25 MG TAB PO SCH (20:27)
--- NOTE | 2016-11-13 22:30 | CONS ---
Date/Time of Note Date/Time of Note DATE: 11/13/16 TIME: 22:29 Assessment/Plan Assessment/Plan Chief Complaint/Hosp Course 51-year-old female with history of polycystic kidney disease got readmitted to the hospital complaining of abdominal pain confined to the epigastric area and lower abdomen and also acid reflux disease. Patient is also constipated. No GI bleeding no weight loss no fever no chills. She had a EGD which revealed erosive gastritis and on colonoscopy polyp was removed. CT scan was grossly negative. Patient had a liver cyst is removed a few months ago. Problems: Additional Assessment/Plan Additional Assessment/Plan 1. Abdominal pain crampy in nature, has improved 2. Acid reflux 3. Constipation 4. Polycystic kidney disease 5. Anemia Plan Small bowel follow-through to make sure there is no small bowel lesion. Still in process Patient needs EUS for subendothelial lesion in the duodenal bulb Antispasmodic medication Amitiza I would prefer Linzess but it is not in the formulary Continue Elavil Workup for anemia Consultation Date/Type/Reason Admit Date/Time Nov 09, 2016 at 22:17 24 HR Interval Summary Free Text/Dictation bloating no vomiting Exam/Review of Systems Vital Signs Vitals Vital Signs Date Time Temp Pulse Resp B/P Pulse Ox O2 Delivery O2 Flow Rate FiO2 11/13/16 20:00 98.6 78 19 147/77 95 Intake and Output 11/12/16 11/12/16 11/13/16 15:00 23:00 07:00 Intake Total 480 ml 600 ml 1320 ml Output Total 200 ml Balance 480 ml 400 ml 1320 ml Exam Constitutional: alert, oriented, well developed Psych: nl mood/affect, no complaints Head: atraumatic, normocephalic Eyes: EOMI, PERRL, nl conjunctiva, nl lids, nl sclera ENMT: nl external ears & nose, nl lips & teeth, nl nasal mucosa & septum Neck: non-tender, supple Respiratory: clear to auscultation, normal air movement Cardiovascular: nl pulses, regular rate and rhythm Gastrointestinal: nl liver, spleen, non-tender, soft Musculoskeletal: nl extremities to inspection, nl gait and stance Extremities: normal pulses Neurological: WOMEN'S STUDIES LECTURER II-XII intact, nl mental status, nl speech, nl strength Skin: nl turgor, No rash or lesions Lymph: nl lymph nodes Results Result Diagram: 11/13/16 0426 11/13/16 0426 Results 24 hrs Laboratory Tests Test 11/13/16 04:26 White Blood Count 4.5 L Red Blood Count 3.27 L Hemoglobin 9.3 L Hematocrit 28.7 L Mean Corpuscular Volume 87.8 Mean Corpuscular Hemoglobin 28.4 L Mean Corpuscular Hemoglobin Concent 32.4 Red Cell Distribution Width 12.6 Platelet Count 250 # Mean Platelet Volume 10.6 H Neutrophils % 49.6 Lymphocytes % 33.8 Monocytes % 13.7 H Eosinophils % 2.0 Basophils % 0.7 Nucleated Red Blood Cells % 0.0 Neutrophils # 2.3 Lymphocytes # 1.5 Monocytes # 0.6 Eosinophils # 0.1 Basophils # 0.0 Nucleated Red Blood Cells # 0.0 Sodium Level 141 Potassium Level 2.9 *L Chloride Level 100 Carbon Dioxide Level 28 Anion Gap 16 Blood Urea Nitrogen 5 L Creatinine 0.70 Glucose Level 100 Calcium Level 8.8 Medications Medications Current Medications Ondansetron HCl (Zofran Tab) 4 mg Q4H PRN PO NAUSEA AND/OR VOMITING; Start at 18:30 Pantoprazole (Protonix Tab) 40 mg DAILY@06 PO Last administered on 11/13/16 05 :57; Admin Dose 40 MG; Start 11/09/16 at 06:00 Polyethylene Glycol 17 gm 17 gm DAILY PO Last administered on 11/09/16 09:04; Admin Dose 17 GM; Start 11/09/16 at 09:00 Dextrose/Sodium Chloride (D5-1/2ns) 1,000 ml @ 60 mls/hr [id number] IV Last administered on 11/12/16 12:08; Admin Dose 60 MLS/HR; Start 11/08/16 at 18:28 Ondansetron HCl (Zofran Inj) 4 mg Q6H PRN IV NAUSEA AND/OR VOMITING Last administered on 11/13/16 20:19; Admin Dose 4 MG; Start 11/08/16 at 18:30 Acetaminophen (Tylenol Tab) 650 mg Q6H PRN PO PAIN LEVEL 1-3 OR FEVER; Start at 18:30 Acetaminophen (Tylenol Supp) 650 mg Q6H PRN [place] PAIN LEVEL 1-3 OR FEVER; Start 11/08/16 at 18:30 Acetaminophen/ Hydrocodone Bitart ([place] (5/325)) 1 tab Q6H PRN PO MODERATE PAIN LEVEL 4-6; Start 11/08/16 at 18:30 Dicyclomine HCl (Bentyl) 10 mg BID PRN PO abdominal cramps ; Start 11/08/16 at 19:00 Lubiprostone (Amitiza) 24 mcg BID PO Last administered on 11/12/16 20:24; Admin Dose 24 MCG; Start 11/09/16 at 21:00 Dicyclomine HCl (Bentyl) 20 mg Q8 PO Last administered on 11/13/16 13:48; Admin Dose 20 MG; Start 11/09/16 at 22:00 Docusate Sodium (Colace) 100 mg BID PRN PO CONSTIPATION Last administered on 09:25; Admin Dose 100 MG; Start 11/09/16 at 21:00 Amitriptyline HCl (Elavil) 25 mg HS PO ; Start 11/11/16 at 21:00 Morphine Sulfate (morphine) 2 mg Q4H PRN IV SEVERE PAIN LEVEL 7-10 Last administered on 11/13/16 16:01; Admin Dose 2 MG; Start 11/13/16 at 14:30 Ranitidine HCl (Zantac) 150 mg BID PO ; Start 11/13/16 at 21:00 Sucralfate (Carafate Susp) 1 gm QID GTB ; Start 11/13/16 at 17:00 Magnesium Hydroxide (Milk Of Mag) 15 ml BID PRN PO CONSTIPATION; Start at 17:00 Morphine Sulfate (Ms Contin (Er)) 15 mg BID PO Last administered on 11/13/16 20:19; Admin Dose 15 MG; Start 11/13/16 at 21:00 Potassium Chloride (Klor-Con 20) 20 meq DAILY PO ; Start 11/14/16 at 09:00 OBED SEARS MD Nov 13, 2016 22:30
[2016-11-14 02:14] VITALS: BP 122/67; RESP 14
[2016-11-14] MEDS: DEXTROSE 5%-0.45% NACL 1,000 ML IV SCH (04:27)
[2016-11-14 05:36] LABS: ALBUMIN 2.9 g/dl (3.3-4.9); ALBUMIN/GLOBULIN RATIO 0.9; BILIRUBIN,INDIRECT 0.8 mg/dl (0-1.1); BILIRUBIN,TOTAL 0.8 mg/dl (0.2-1.3); CALCIUM 8.4 mg/dl (8.4-10.2); CREATININE 0.76 mg/dl (0.44-1.00); POTASSIUM 3.7 mmol/L (3.5-5.1); TOTAL PROTEIN 6.1 g/dl (6.1-8.1)
[2016-11-14] MEDS: DICYCLOMINE 10 MG CAP PO SCH ×3 (06:00→21:05)
[2016-11-14] MEDS: PANTOPRAZOLE (EC) 40 MG TAB PO SCH (06:24)
[2016-11-14] MEDS: ONDANSETRON 4 MG INJ IV PRN (08:18)
[2016-11-14] MEDS: morphine (ER) 15 MG TAB PO SCH ×2 (08:18→20:20)
[2016-11-14] MEDS: SUCRALFATE (100 MG/ML) 10ML CUP GTB SCH ×4 (08:23→20:20)
[2016-11-14] MEDS: LUBIPROSTONE 24 MCG CAP PO SCH ×2 (08:24→20:26)
[2016-11-14] MEDS: RANITIDINE 150 MG TAB PO SCH ×2 (08:24→20:27)
[2016-11-14] MEDS: POTASSIUM CHLORIDE (SR) 20 MEQ TAB PO SCH (08:24)
[2016-11-14] MEDS: POLYETHYLENE GLYCOL 17 GM PACKET PO SCH (08:24)
[2016-11-14 09:02] VITALS: BP 126/72; RESP 18
--- NOTE | 2016-11-14 10:39 | CONS ---
Date/Time of Note Date/Time of Note DATE: 11/14/16 TIME: 10:37 Assessment/Plan Assessment/Plan Chief Complaint/Hosp Course 51-year-old female with history of polycystic kidney disease got readmitted to the hospital complaining of abdominal pain confined to the epigastric area and lower abdomen and also acid reflux disease. Patient is also constipated. No GI bleeding no weight loss no fever no chills. She had a EGD which revealed erosive gastritis and on colonoscopy polyp was removed. CT scan was grossly negative. Patient had a liver cyst is removed a few months ago. Problems: Additional Assessment/Plan Problems: Additional Assessment/Plan Additional Assessment/Plan 1. Abdominal pain crampy in nature, has improved 2. Acid reflux 3. Constipation 4. Polycystic kidney disease 5. Anemia Plan Small bowel follow-through to make sure there is no small bowel lesion. Still in process Patient needs EUS for subendothelial lesion in the duodenal bulb Antispasmodic medication Amitiza I would prefer Linzess but it is not in the formulary Continue Elavil Workup for anemia Patient may benefit from Librax if it is covered by the insurance. Yogurt on a regular basis as a probiotic Consultation Date/Type/Reason Admit Date/Time Nov 09, 2016 at 22:17 24 HR Interval Summary Free Text/Dictation No nausea no vomiting Patient is able to keep the food down She has significant stress and anxiety Exam/Review of Systems Vital Signs Vitals Vital Signs Date Time Temp Pulse Resp B/P Pulse Ox O2 Delivery O2 Flow Rate FiO2 11/14/16 09:02 97.5 58 18 126/72 94 Intake and Output 11/13/16 11/13/16 11/14/16 15:00 23:00 07:00 Intake Total 250 ml 950 ml 1520 ml Output Total 800 ml Balance 250 ml 150 ml 1520 ml Exam Constitutional: alert, oriented, well developed Psych: nl mood/affect, no complaints Head: atraumatic, normocephalic Eyes: EOMI, PERRL, nl conjunctiva, nl lids, nl sclera ENMT: nl external ears & nose, nl lips & teeth, nl nasal mucosa & septum Neck: non-tender, supple Respiratory: clear to auscultation, normal air movement Cardiovascular: nl pulses, regular rate and rhythm Gastrointestinal: nl liver, spleen, non-tender, soft Musculoskeletal: nl extremities to inspection, nl gait and stance Extremities: normal pulses Neurological: TEACHER OF GIFTED STUDENTS II-XII intact, nl mental status, nl speech, nl strength Skin: nl turgor, No rash or lesions Lymph: nl lymph nodes Results Result Diagram: 11/13/166 11/14/16 0426 Results 24 hrs Laboratory Tests Test 11/14/16 04:26 Sodium Level 140 Potassium Level 3.7 Chloride Level 101 Carbon Dioxide Level 29 Anion Gap 14 Blood Urea Nitrogen 7 Creatinine 0.76 Glucose Level 100 Calcium Level 8.4 Total Bilirubin 0.8 Direct Bilirubin 0.00 Indirect Bilirubin 0.8 Aspartate Amino Transf (AST/SGOT) 14 L Alanine Aminotransferase (ALT/SGPT) 25 Alkaline Phosphatase 50 Total Protein 6.1 Albumin 2.9 L Globulin 3.20 Albumin/Globulin Ratio 0.90 Medications Medications Current Medications Ondansetron HCl (Zofran Tab) 4 mg Q4H PRN PO NAUSEA AND/OR VOMITING; Start at 18:30 Pantoprazole (Protonix Tab) 40 mg DAILY@06 PO Last administered on 11/14/16 06: 24; Admin Dose 40 MG; Start 11/09/16 at 06:00 Polyethylene Glycol 17 gm 17 gm DAILY PO Last administered on 11/09/16 09:04; Admin Dose 17 GM; Start 11/09/16 at 09:00 Dextrose/Sodium Chloride (D5-1/2ns) 1,000 ml @ 60 mls/hr [id number] IV Last administered on 11/14/16 04:27; Admin Dose 60 MLS/HR; Start 11/08/16 at 18:28 Ondansetron HCl (Zofran Inj) 4 mg Q6H PRN IV NAUSEA AND/OR VOMITING Last administered on 11/14/16 08:18; Admin Dose 4 MG; Start 11/08/16 at 18:30 Acetaminophen (Tylenol Tab) 650 mg Q6H PRN PO PAIN LEVEL 1-3 OR FEVER; Start at 18:30 Acetaminophen (Tylenol Supp) 650 mg Q6H PRN [place] PAIN LEVEL 1-3 OR FEVER; Start 11/08/16 at 18:30 Acetaminophen/ Hydrocodone Bitart ([place] (5/325)) 1 tab Q6H PRN PO MODERATE PAIN LEVEL 4-6; Start 11/08/16 at 18:30 Dicyclomine HCl (Bentyl) 10 mg BID PRN PO abdominal cramps ; Start 11/08/16 at 19:00 Lubiprostone (Amitiza) 24 mcg BID PO Last administered on 11/12/16 20:24; Admin Dose 24 MCG; Start 11/09/16 at 21:00 Dicyclomine HCl (Bentyl) 20 mg Q8 PO Last administered on 11/13/16 13:48; Admin Dose 20 MG; Start 11/09/16 at 22:00 Docusate Sodium (Colace) 100 mg BID PRN PO CONSTIPATION Last administered on 09:25; Admin Dose 100 MG; Start 11/09/16 at 21:00 Amitriptyline HCl (Elavil) 25 mg HS PO ; Start 11/11/16 at 21:00 Morphine Sulfate (morphine) 2 mg Q4H PRN IV SEVERE PAIN LEVEL 7-10 Last administered on 11/13/16 16:01; Admin Dose 2 MG; Start 11/13/16 at 14:30 Ranitidine HCl (Zantac) 150 mg BID PO ; Start 11/13/16 at 21:00 Sucralfate (Carafate Susp) 1 gm QID GTB ; Start 11/13/16 at 17:00 Magnesium Hydroxide (Milk Of Mag) 15 ml BID PRN PO CONSTIPATION; Start at 17:00 Morphine Sulfate (Ms Contin (Er)) 15 mg BID PO Last administered on 11/14/16 08 :18; Admin Dose 15 MG; Start 11/13/16 at 21:00 Potassium Chloride (Klor-Con 20) 20 meq DAILY PO ; Start 11/14/16 at 09:00 OBED SEARS MD Nov 14, 2016 10:39
[2016-11-14 10:54] LABS: RETICULOCYTE COUNT % 2.7 % (0.5-1.5)
[2016-11-14 13:23] LABS: FOLATE 14.9 ng/ml (2.8-20.0)
--- NOTE | 2016-11-14 15:35 | PN ---
Date/Time of Note Date/Time of Note DATE: 11/14/16 TIME: 15:33 Assessment/Plan Lines/Catheters IV Catheter Type (from Nrsg): Peripheral IV Assessment/Plan Assessment/Plan [facility] Progress Note Date of Service: 11/14/2016 Place of service: [facility] 4th floor Today's Assessment & Plan: Overall stable but with ongoing issues with nausea and vomiting, although appears to be slightly improved compared to yesterday. No new recommendations compared to yesterday. Still bloated and still no clear actionable etiology. No obvious identifiable and actionable surgical etiology. Management and dispo per medical team and GI. May benefit from second opinion with another experienced hepatobiliary center. Patient appeared to understand and agreed with the plans. With above assessment, I've recommended the following for today: 1. Discharge when medically stable 2. Possible need for second opinion from another experience hepatobiliary center Thank you again for your great care of this very pleasant patient and wonderful family. If there are any questions, please feel free to call me at [phone]. Nature of presenting problem: Moderate to high severity Please note that, given the multiple number of diagnoses or management options, the moderate amount and/or complexity of data needed to be reviewed, and moderate to high risk of complications and/or morbidity or mortality, this qualifies as moderate to high complexity type of decision-making. Disclaimer: Inadvertent spelling and grammatical errors are likely due to EHR/ dictation software use and do not reflect on the quality of delivered patient care. Also, please note that the electronic time recorded on this node does not necessarily reflect the actual time of the visit. Updated Clinical Summary: The patient is a very pleasant 49-year-old young lady with symptomatic polycystic kidney and liver disease with abdominal pain and decreased oral intake. Status post laparoscopic cyst unroofing (multiple) 09/24/2015 as an outpatient. Readmission to [facility] for partial SBO September 2016. Possible UTI, and later in the hospitalization, slight elevation in amylase and lipase. S/p EGD at [facility] by Dr. Harrison: Erosive gastritis, sub-endothelial 2 cm lesion in the duodenal bulb, normal duodenum, normal Z line at 38 cm, normal esophagus. Readmitted [facility] for abd pain, nausea and vomiting 10/31/16. Status post colonoscopy 11/03/2016 that showed small polyp in the sigmoid colon (removed) and no other major pathology. Discharge home 11/04/2016. Comorbidities: 1. BMI 29.5 2. Polycystic kidney and liver disease discovered in the summer of 2013 3. S/p laparoscopic cyst unroofing (multiple) 09/24/2015 as an outpatient at [facility] through [facility] 4. S/p partial hysterectomy in 2010 5. S/p EGD at [facility] by Dr. Harrison ( Erosive gastritis, sub-endothelial 2 cm lesion in the duodenal bulb, normal duodenum, normal Z line at 38 cm, normal esophagus) 6. Erosive gastritis 7. Sub-endothelial 2 cm lesion in the duodenal bulb 8. Status post colonoscopy 11/03/2016 that showed small polyp in the sigmoid colon (removed) and no other major pathology at [facility]. Subjective: No major events or complaints, but with ongoing issues with bloating, nausea and vomiting (last time was yesterday); mild abd pain and under control with medications; no current n/v; - d; no sob or cp; + flatus; + BM; + activity; understandably frustrated with her clinical situation. Objective: Vitals: See below I's & O's: See below Exam: GENERAL: On exam, the patient was lying in bed and appeared to be comfortable and in no acute distress. ABDOMEN: Soft, none to mildly tender and nondistended. Incisions are clean, dry and intact without any evidence of erythema, edema, discharge, or hernia. There are no peritoneal signs or guarding. SKIN: Skin appears to be pink and feels warm to touch. NEUROLOGIC: Patient is awake, alert, and follows commands appropriately. Labs: See below Exam/Review of Systems Vital Signs Vitals Vital Signs Date Time Temp Pulse Resp B/P Pulse Ox O2 Delivery O2 Flow Rate FiO2 11/14/16 09:02 97.5 58 18 126/72 94 Intake and Output 11/13/16 11/13/16 11/14/16 15:00 23:00 07:00 Intake Total 250 ml 950 ml 1520 ml Output Total 800 ml Balance 250 ml 150 ml 1520 ml Results Result Diagram: 11/13/16 0426 11/14/16 0426 HEMAL EMERY M.D. Nov 14, 2016 15:35
--- NOTE | 2016-11-14 17:26 | PDOCDIS ---
Discharge Instructions CONDITION Patient Condition: Stable HOME CARE INSTRUCTIONS: Special Diet: REGULAR ACTIVITY: Activity Restrictions: Slowly Increase Activity FOLLOW UP/APPOINTMENTS Follow-up Plan F/U OWN PCP [address] KING [address] SEARS 1 WK MARIANNE MONTELONGO MD Nov 14, 2016 17:26
[2016-11-14] MEDS ORDERED: DICY10CA60 PO (17:30)
[2016-11-14] MEDS ORDERED: MORP15TA3 PO (17:30)
[2016-11-14] MEDS ORDERED: PANT40TA4 PO (17:30)
[2016-11-14] MEDS ORDERED: CARAS GTB (17:30)
[2016-11-14] MEDS ORDERED: POTA20TA15 PO (17:30)
[2016-11-14] MEDS ORDERED: AMI25 PO (17:30)
[2016-11-14] MEDS ORDERED: LUBI24CA7 PO (17:30)
[2016-11-14] MEDS ORDERED: RANI150T5 PO (17:30)
--- NOTE | 2016-11-14 17:36 | PN ---
Date/Time of Note Date/Time of Note DATE: 11/14/16 TIME: 17:35 Assessment/Plan VTE Prophylaxis VTE Prophylaxis Intervention: other Lines/Catheters IV Catheter Type (from Nrsg): Peripheral IV Assessment/Plan Chief Complaint/Hosp Course A/P ABD PAIN BETTER PKD LIVER CYSTS GASTRITIS DYSPEPSIA PLAN PPI ZANTAC KCL HOME SOON Problems: Subjective 24 Hr Interval Summary ENT: no complaints Respiratory: no complaints Gastrointestinal: no complaints, pain (BETTER) Exam/Review of Systems Vital Signs Vitals Vital Signs Date Time Temp Pulse Resp B/P Pulse Ox O2 Delivery O2 Flow Rate FiO2 11/14/16 09:02 97.5 58 18 126/72 94 Intake and Output 11/13/16 11/13/16 11/14/16 15:00 23:00 07:00 Intake Total 250 ml 950 ml 1520 ml Output Total 800 ml Balance 250 ml 150 ml 1520 ml Exam Neck: supple Respiratory: clear to auscultation Cardiovascular: regular rate and rhythm Gastrointestinal: soft Musculoskeletal: nl extremities to inspection Results Result Diagram: 11/13/16 0426 11/14/16 0426 Results 24 hrs Laboratory Tests Test 11/14/16 04:20 11/14/16 04:26 Absolute Reticulocyte Count 0.085 Percent Reticulocyte Count 2.7 H Ferritin 104.0 Vitamin B12 Level Pending Folate 14.9 Sodium Level 140 Potassium Level 3.7 Chloride Level 101 Carbon Dioxide Level 29 Anion Gap 14 Blood Urea Nitrogen 7 Creatinine 0.76 Glucose Level 100 Calcium Level 8.4 Total Bilirubin 0.8 Direct Bilirubin 0.00 Indirect Bilirubin 0.8 Aspartate Amino Transf (AST/SGOT) 14 L Alanine Aminotransferase (ALT/SGPT) 25 Alkaline Phosphatase 50 Total Protein 6.1 Albumin 2.9 L Globulin 3.20 Albumin/Globulin Ratio 0.90 Medications Medications Current Medications Ondansetron HCl (Zofran Tab) 4 mg Q4H PRN PO NAUSEA AND/OR VOMITING; Start at 18:30 Pantoprazole (Protonix Tab) 40 mg DAILY@06 PO Last administered on 11/14/16 06: 24; Admin Dose 40 MG; Start 11/09/16 at 06:00 Polyethylene Glycol 17 gm 17 gm DAILY PO Last administered on 11/09/16 09:04; Admin Dose 17 GM; Start 11/09/16 at 09:00 Dextrose/Sodium Chloride (D5-1/2ns) 1,000 ml @ 60 mls/hr [id number] IV Last administered on 11/14/16 04:27; Admin Dose 60 MLS/HR; Start 11/08/16 at 18:28 Ondansetron HCl (Zofran Inj) 4 mg Q6H PRN IV NAUSEA AND/OR VOMITING Last administered on 11/14/16 08:18; Admin Dose 4 MG; Start 11/08/16 at 18:30 Acetaminophen (Tylenol Tab) 650 mg Q6H PRN PO PAIN LEVEL 1-3 OR FEVER; Start at 18:30 Acetaminophen (Tylenol Supp) 650 mg Q6H PRN [place] PAIN LEVEL 1-3 OR FEVER; Start 11/08/16 at 18:30 Acetaminophen/ Hydrocodone Bitart ([place] (5/325)) 1 tab Q6H PRN PO MODERATE PAIN LEVEL 4-6; Start 11/08/16 at 18:30 Dicyclomine HCl (Bentyl) 10 mg BID PRN PO abdominal cramps ; Start 11/08/16 at 19:00 Lubiprostone (Amitiza) 24 mcg BID PO Last administered on 11/12/16 20:24; Admin Dose 24 MCG; Start 11/09/16 at 21:00 Dicyclomine HCl (Bentyl) 20 mg Q8 PO Last administered on 11/13/16 13:48; Admin Dose 20 MG; Start 11/09/16 at 22:00 Docusate Sodium (Colace) 100 mg BID PRN PO CONSTIPATION Last administered on 09:25; Admin Dose 100 MG; Start 11/09/16 at 21:00 Amitriptyline HCl (Elavil) 25 mg HS PO ; Start 11/11/16 at 21:00 Morphine Sulfate (morphine) 2 mg Q4H PRN IV SEVERE PAIN LEVEL 7-10 Last administered on 11/13/16 16:01; Admin Dose 2 MG; Start 11/13/16 at 14:30 Ranitidine HCl (Zantac) 150 mg BID PO ; Start 11/13/16 at 21:00 Sucralfate (Carafate Susp) 1 gm QID GTB ; Start 11/13/16 at 17:00 Magnesium Hydroxide (Milk Of Mag) 15 ml BID PRN PO CONSTIPATION; Start at 17:00 Morphine Sulfate (Ms Contin (Er)) 15 mg BID PO Last administered on 11/14/16t 08 :18; Admin Dose 15 MG; Start 11/13/16 at 21:00 Potassium Chloride (Klor-Con 20) 20 meq DAILY PO ; Start 11/14/16 at 09:00 MARIANNE MONTELONGO MD Nov 14, 2016 17:36
[2016-11-14 18:12] VITALS: BP 124/70; RESP 18
[2016-11-14] MEDS: AMITRIPTYLINE 25 MG TAB PO SCH (20:27)
[2016-11-14 20:50] VITALS: BP 138/75; RESP 20
[2016-11-15] MEDS: DEXTROSE 5%-0.45% NACL 1,000 ML IV SCH (00:20)
[2016-11-15 02:27] VITALS: BP 118/68; RESP 20
[2016-11-15] MEDS: DICYCLOMINE 10 MG CAP PO SCH (06:22)
[2016-11-15] MEDS: PANTOPRAZOLE (EC) 40 MG TAB PO SCH (06:22)
[2016-11-15 08:00] VITALS: BP 128/73; RESP 20
--- NOTE | 2016-11-15 08:22 | HP ---
DATE OF ADMISSION: 11/09/2016 Inaudible. Dictated By: Mikie Bridges MD /[email or web address] /Document#: [id number]
[2016-11-15] MEDS: ONDANSETRON 4 MG INJ IV PRN (08:47)
[2016-11-15] MEDS: morphine (ER) 15 MG TAB PO SCH (08:47)
[2016-11-15] MEDS: RANITIDINE 150 MG TAB PO SCH (08:48)
[2016-11-15] MEDS: SUCRALFATE (100 MG/ML) 10ML CUP GTB SCH (08:51)
[2016-11-15] MEDS: LUBIPROSTONE 24 MCG CAP PO SCH (08:52)
[2016-11-15] MEDS: POLYETHYLENE GLYCOL 17 GM PACKET PO SCH (08:53)
[2016-11-15] MEDS: POTASSIUM CHLORIDE (SR) 20 MEQ TAB PO SCH (08:53)
--- NOTE | 2016-11-16 17:44 | QN ---
Documentation Comment [id number] MARIANNE MONTELONGO MD Nov 16, 2016 17:44
--- NOTE | 2016-11-16 17:46 | QN ---
Documentation Comment [id number] MARIANNE MONTELONGO MD Nov 16, 2016 17:46
--- NOTE | 2016-11-16 20:43 | HP ---
DATE OF ADMISSION: 11/09/2016 HISTORY OF PRESENT ILLNESS: The patient with history of polycystic liver disease, polycystic kidney disease presenting with abdominal pain. The patient in the ER had laboratory work done that shows the patient has neutropenia and anemia. The patient discharged from the ER and being admitted for further management. PAST MEDICAL HISTORY: Positive for polycystic liver disease, polycystic kidney disease, history of EGD that showed erosive gastritis, subepithelial 2 cm lesion in the duodenum bulb. The patient has erosive gastritis. History of colonoscopy in the past, status post polypectomy. ALLERGIES: NONE. FAMILY HISTORY: None. SOCIAL HISTORY: No change. MEDICATIONS: The patient is [place] and Protonix. REVIEW OF SYSTEMS: HEENT: Unremarkable. RESPIRATORY: Unremarkable. CVS: Unremarkable. ABDOMEN: Nausea and vomiting. Abdominal pain. No diarrhea. EXTREMITIES: Unremarkable. PALLET SORTER: Unremarkable. PHYSICAL EXAMINATION: GENERAL APPEARANCE: The patient is awake. VITAL SIGNS: Stable. HEENT: Head is atraumatic, normocephalic. Pupils are equal and reactive to light. NECK: Supple. No JVD. LUNGS: Clear. CVS: S1 and S2, normal. ABDOMEN: Distended. Bowel sounds positive. Tenderness on palpitation. EXTREMITIES: No cyanosis, clubbing, or edema. PALLET SORTER: The patient is awake, alert, no deficit. LABORATORY DATA: Hematocrit 30.2, potassium 4. IMPRESSION: 1. Abdominal pain. 2. Polycystic kidney disease. 3. Polycystic liver disease. 4. Status post esophagogastroduodenoscopy (EGD). 5. Erosive gastritis. 6. Status post colonoscopy. 7. Status post polypectomy. PLAN: 1. We will give her IV fluids. 2. PO liquid diet. 3. Pain medication. 4. GI consultation. 5. Physical consultation. 6. Orders were done. Dictated By: Mikie Bridges MD /[email or web address]/mic /Document#: [id number]
--- NOTE | 2016-11-16 21:25 | DS ---
DATE OF ADMISSION: 11/09/2016 DATE OF DISCHARGE: 11/15/2016 HOSPITAL COURSE: The patient was admitted with abdominal pain and was seen by Dr. Harrison in consultation. The patient underwent normal upper GI series. The also underwent small bowel series and shows no findings of small bowel obstruction. The patient started on proton pump inhibitor (PPI) and nausea medications. The patient's symptoms are resolving. The patient was cleared to be discharged. FINAL DIAGNOSES: 1. Polycystic kidney disease. 2. Polycystic liver disease. 3. Erosive gastritis. 4. Dyspepsia. PATIENT'S OTHER DIAGNOSES: 1. Status post laparoscopic cyst unroofing. 2. Status post partial hysterectomy. DISCHARGE INSTRUCTIONS: The patient has a colonoscopy planned. DISCHARGE MEDICATIONS: The patient is to continue on amitriptyline, Bentyl, Amitiza, morphine sulfate, potassium, ranitidine, Carafate. Continue Zofran, Protonix, and the MiraLax. FOLLOWUP: The patient is follow with Dr. Harrison, Dr. Callahan, and the patient's primary care doctor. Dictated By: Mikie Bridges MD /[email or web address]/monie /Document#: [id number]
== END 2016-11-15 10:54 | disposition home or self-care (01) | DRG 699 ==
LOC: E/R 12:59 → PP2 17:30 → OBSVTOIN 11-09 22:17 → MS1 11-11 18:45
PROVIDERS: ADMIT Internal Medicine Nephrology; ATTEND Internal Medicine Nephrology
DX: Q61.3 Polycystic kidney, unspecified (principal); Q44.6 Cystic disease of liver; J90 Pleural effusion, not elsewhere classified; D70.9 Neutropenia, unspecified; K29.60 Other gastritis without bleeding; D64.9 Anemia, unspecified; Z90.710 Acquired absence of both cervix and uterus; K31.9 Disease of stomach and duodenum, unspecified; K63.5 Polyp of colon; K59.00 Constipation, unspecified; K21.9 Gastro-esophageal reflux disease without esophagitis
CPT/HCPCS: 36415; 74240; 74250; 80048; 80053; 81003; 82607; 82728; 82746; 83690; 85025; 85045; 87081; 96374; 96375; G0378; C9113; J2270; J2405; J3480; J7042